=== PATIENT | male | born 1995 | race Caucasian/White ===

== ENCOUNTER → 2021-01-14 12:37 | Outpatient (CLI) | payer OTHER, SELFPAY ==
--- NOTE | 2021-01-14 12:42 | DI.RAD.S_ITS ---
PROCEDURE: XR LUMBAR SPINE 2-3V INDICATIONS: low back pain TECHNIQUE: 3 views of the lumbar spine were acquired. COMPARISON: None. FINDINGS: Bones: 5 [id number] vertebrae are present. There is normal bony alignment. No vertebral body compression fractures. No suspicious bony lesions. Lucency at the L4-L5 level consistent with pars interarticularis defects. Moderate L5-S1 disc height loss. Soft tissues: Overlying bowel gas pattern is normal. No suspicious soft tissue calcifications. 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 If indicated, oblique views could be performed for further assessment. Moderate L5-S1 disc degeneration. Dictated by: Michael Mitchell [facility] Interpreted: Kalpesh Adam MD on 01/14/2021 at 13:38 Transcribed by: ANDRES on 01/14/2021 at 13:50 Approved by: Kalpesh Adam M.D. on 01/14/2021 at 13:56
== END ==
PROVIDERS: PCP Family Medicine; Referring Provider Family Medicine; Visit Provider Family Medicine
DX: M51.36 Other intervertebral disc degeneration, lumbar region (principal); M51.37 Other intervertebral disc degeneration, lumbosacral region; M54.50 Low back pain, unspecified
CPT/HCPCS: 72100

== ENCOUNTER → 2021-04-02 14:53 | Outpatient (CLI) | payer OTHER, SELFPAY ==
--- NOTE | 2021-04-02 14:54 | DI.MRI.S_ITS ---
PROCEDURE: MR LUMBAR SPINE WO CON INDICATIONS: hemangioma and chronic low back pain not improved TECHNIQUE: Noncontrast sagittal T1 spin echo and T2 fast echo, sagittal STIR, axial T1 and T2 fast spin echo through the lumbar spine. In cases with scoliosis, additional coronal T2 fast spin echo may be performed. COMPARISON: None. FINDINGS: Image quality: Excellent. Alignment and Curvature: There is normal bony alignment. Bone Marrow: Marrow is of normal overall signal. No acute vertebral body compression fractures. Spinal Cord: Conus medullaris terminates at the L1 level. Visualized cord demonstrates normal signal and size. Paraspinous Soft Tissues: No paravertebral masses. T12-L1: No significant disc bulge. The foramina and central canal are patent. L1-L2: No significant disc bulge. The foramina and central canal are patent. L2-L3: No significant disc bulge. The foramina and central canal are patent. L3-L4: The disc demonstrates low T2 signal consistent with degeneration. There is a diffuse disc bulge with a small central disc protrusion causing mild bilateral foraminal stenosis and mild central canal stenosis. L4-L5: The disc demonstrates low T2 signal consistent with degeneration. There is a diffuse disc bulge without protrusion or extrusion causing mild bilateral foraminal stenosis. L5-S1: The disc demonstrates low T2 signal consistent with degeneration. There is a diffuse disc bulge with a central and right paracentral protrusion measuring 10 mm in width and protruding posteriorly 6 mm which encroaches upon the lateral recess and impinges upon the exiting right S1 right nerve root and indents the anterior thecal sac causing mild to moderate central canal stenosis. The foramina are patent at this level. IMPRESSION: 1. Degenerative disc disease of L3-4, L4-5, and L5-S1. 2. Small central protrusion at L3-4 causing mild bilateral foraminal stenosis and mild central canal stenosis. 3. Diffuse disc bulge of L4-5 causing mild bilateral foraminal stenosis and no central canal stenosis. 4. Larger right central/paracentral protrusion measuring 10 mm in width and 6 mm AP which causes mild to moderate central canal stenosis and impinges upon the exiting right S1 nerve root. Dictated by: Alonzo Melendez M.D. on 04/02/2021 at 16:15 Approved by: Alonzo Melendez M.D. on 04/02/2021 at 16:25
== END ==
PROVIDERS: Family Provider Family Medicine; PCP Family Medicine; Referring Provider Family Medicine; Visit Provider Family Medicine
DX: M51.37 Other intervertebral disc degeneration, lumbosacral region (principal); M51.27 Other intervertebral disc displacement, lumbosacral region; M51.36 Other intervertebral disc degeneration, lumbar region; M51.26 Other intervertebral disc displacement, lumbar region; M48.061 Spinal stenosis, lumbar region without neurogenic claudication; M48.07 Spinal stenosis, lumbosacral region; M43.06 Spondylolysis, lumbar region; D18.09 Hemangioma of other sites; G89.29 Other chronic pain
CPT/HCPCS: 72148

== ENCOUNTER 2021-04-20 15:15 | Outpatient (RCR) | payer OTHER, SELFPAY ==
--- NOTE | 2021-02-24 16:51 | PT.OIE ---
Current Diagnoses Lesion of sciatic nerve, right lower limb (02/24/21) Spondylosis, unspecified (02/24/21) Sciatica, right side (02/24/21) Lumbago with sciatica, right side (02/24/21) Past Medical History (Last Updated 02/16/21 @ 10:04 by Jakub Paez MD) Anxiety (~2019) Chronic back pain (~2016) Color blind Exertional compartment syndrome (~2016) Foot pain (~2016) Headache History of left knee surgery (~2010) Hx of vasectomy Migraines Pars defect of lumbar spine Shoulder pain (~2016) [place] teeth removed (~2013) Past Surgical History (Last Updated 11/24/20 @ 13:22 by Jakub Paez MD) Anesthesia History of left knee surgery (~2010) Hx of vasectomy [place] teeth removed (~2013) Visit Care Team Role Provider Type Jakub Paez MD Attending Provider Physician Family Provider Primary Care Provider Referring Provider Specialty: Family Practice Address: [address] [place] [address] Email: [email or web address] Physical Therapy Initial Evaluation PT-OP-A Visit Information Start: 02/24/21 15:21 Freq: Status: Active Protocol: Document 02/24/21 14:30 DCW (Rec: 02/24/21 15:41 DCW [id number]) Out-Patient Physical Therapy Visit Information Visit Information Visit Type Initial Evaluation Visit Start Time 14:30 Visit Stop Time 15:15 Total Visit Minutes 45 Visit Number 1 Number of AUTOMATIC SPINNING LATHE SETTER Visits 0 Evaluation Information Evaluation Date 02/24/21 PT-OP-B Current Condition Start: 02/24/21 15:21 Freq: Status: Active Protocol: Document 02/24/21 14:30 DCW (Rec: 02/24/21 15:41 DCW [id number]) Current Condition History of Current Condition Onset Date ~1 year ago Current Complaints Low back pain with right-sided radicular symptoms History of Current Condition Pt is a 25 year old male presenting with a one year history of low back pain. Pt reports there was no initial injury, he was just bending down to put things away under his sink, and got severe pain in his low back. Pt notes he had to sit on the floor for ten minutes, and then eventually crawl down to his garage so his could take him to the ED. Reports his pain went away after 4-5 days, but continued to have a chronic low-level back ache. Then in December, pt once again started experiencing much more severe back pain with right-sided radicular symptoms, notes he was not able to stand or sit, only getting relief lying down, and once again this pain lasted about five days. Pt concerned both of his low-level back ache that doesn't go away, as well as this occasional sudden worsening of pain. Pt notes he did have an MRI at another hospital last year which showed multiple bulging discs and an annular tear. 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 Patient Questionnaires Oswestry Low Back Index Oswestry Score 8/50 = 16% Oswestry Impairment 1 to 19% Impaired (Score 1-19) OP-PT Pain Assessment Pain Assessment Grid Paper Pain Assessment Grid Completed Yes Location Right Lower Back Intensity 4 Scale Used Numeric (0 - 10) Description Sharp,Shooting Radiating Location Right posterior thigh Pain Aggravating Factors Standing,Sitting,Walking, Bending,Lifting PT-OP-F Manual Assessment Start: 02/24/21 15:21 Freq: Status: Active Protocol: Document 02/24/21 14:30 DCW (Rec: 02/24/21 15:48 DCW [id number]) Manual Assessments Soft Tissue Assessment Soft Tissue Mobility Assessment Severe tone R piriformis, Moderate tone R QL, R paraspinals PT-OP-K Range of Motion Start: 02/24/21 15:21 Freq: Status: Active Protocol: Document 02/24/21 14:30 DCW (Rec: 02/24/21 15:48 DCW [id number]) Lumbar Spine Range of Motion Lumbar Spine Active Degrees Testing Position Standing Flexion 70 Extension 25 Lateral Flexion Left 52 Lateral Flexion Right 50 Comments Lateral flexion measured in cm from floor to finger-tips PT-OP-L Special Tests Start: 02/24/21 15:21 Freq: Status: Active Protocol: Document 02/24/21 14:30 DCW (Rec: 02/24/21 15:48 DCW [id number]) Special Tests Lumbar Spine Special Tests DIEGO Test Results Negative Standing Flexion Test Results General pain Straight Leg Raise Test Results Positive R Slump Test Results Stretch of right nerve Manual Traction Test Results R stretching Compression Test Results Negative A-P Shearing Test Results Negative PT-OP-M Strength Start: 02/24/21 15:21 Freq: Status: Active Protocol: Document 02/24/21 14:30 DCW (Rec: 02/24/21 15:48 DCW [id number]) Hip Strength Hip Manual Muscle Testing Right Flexion (L2) 5 Normal Abduction 5 Normal Adduction 5 Normal External Rotation 5 Normal Internal Rotation 5 Normal Left Flexion (L2) 5 Normal Abduction 5 Normal Adduction 5 Normal External Rotation 5 Normal Internal Rotation 5 Normal PT-OP-Q Treatments Start: 02/24/21 15:21 Freq: Status: Active Protocol: Document 02/24/21 14:30 DCW (Rec: 02/24/21 15:42 DCW [id number]) Therapeutic Exercises Supine Exercises 1 Supine Exercise Name Piriformis stretch - knee to opposite shoulder Side right Sitting Exercises 1 Sitting Exercise Name Piriformis stretch - seated figure-4 Side right PT-OP-T Assessment and Plan Start: 02/24/21 15:21 Freq: Status: Active Protocol: Document 02/24/21 14:30 DCW (Rec: 02/24/21 16:51 DCW [id number]) Physical Therapy Assessment Rehab Potential Rehabilitation Potential Good Evaluation Complexity Number of Personal Factors/Comorbidities 1-2 Number of Body Systems Impaired 1-2 Clinical Presentation at Evaluation Evolving Impairments Impairments Functional Activities, Functional Mobility,Pain,Soft Tissue Mobility,Tone Goals Three Impairment Pt experiences right neural tension in leg with SLR/ankle flexion Lithographic Etcher Goal (LTG) Pt to tolerate R SLR with ankle pumps without increase shooting pain to show release of sciatic neural tension LTG Duration 04/24/21 Two Impairment Severe tone along right piriformis Lithographic Etcher Goal (LTG) Pt to exhibit right piriformis tone to mild-moderate to improve right hip flexibility. LTG Duration 04/24/21 One Impairment Pt does not have an appropriate home exercise program Short Term Goal (STG) Pt to be independent and complaint with an appropriate HEP STG Duration 03/27/21 Assessment Summary Assessment Pt presents with signs and symptoms consistent with likely lumbar disc bulges and right-sided muscle tension resulting in radicular pain along posterior hip and thigh. Pt's severe pain comes and goes, which may be spasm of the piriformis, and then has continued chronic low-level ache, which may be caused by the disc bulges. Pt should benefit from skilled therapy focusing on STM, stretching/ flexibility to decrease pressure of QL and Piriformis and decrease tension on right sciatic nerve. May also benefit from lumbar traction and positioning training to potentially reduce disc bulges . Physical Therapy Plan Frequency and Duration Frequency of Treatment 2x/Week Duration of Treatment Two months Plan of Care Start Date 02/24/21 Plan of Care End Date 04/24/21 Therapeutic Interventions Therapeutic Interventions Aquatic Therapy,Home Exercise Program,Joint Mobilizations, Manual Therapy,Neuromuscular Re-education,Patient/Caregiver Education,Self-Care/Home Management,Soft Tissue Mobilization,Therapeutic Activities,Therapeutic Exercises Modalities Cold Pack/Ice Massage,Electric Stimulation,Hot Packs, Traction- Mechanical, Ultrasound Next Visit Focus/Plan Next Note Type Treatment Note Next Visit Plan STM, stretching, traction
--- NOTE | 2021-02-24 16:52 | PT.OPPOC ---
Physical, Occupational & Speech Therapy At [facility] Current Diagnoses Lesion of sciatic nerve, right lower limb (02/24/21) Spondylosis, unspecified (02/24/21) Sciatica, right side (02/24/21) Lumbago with sciatica, right side (02/24/21) Visit Care Team Role Provider Type Jakub Paez MD Attending Provider Physician Family Provider Primary Care Provider Referring Provider Specialty: Family Practice Address: [address] [place] [address], [facility] Email: [email or web address] Plan Of Care PT-OP-T Assessment and Plan Start: 02/24/21 15:21 Freq: Status: Active Protocol: Document 02/24/21 14:30 DCW (Rec: 02/24/21 16:51 DCW [id number]) Physical Therapy Assessment Rehab Potential Rehabilitation Potential Good Evaluation Complexity Number of Personal Factors/Comorbidities 1-2 Number of Body Systems Impaired 1-2 Clinical Presentation at Evaluation Evolving Impairments Impairments Functional Activities, Functional Mobility,Pain,Soft Tissue Mobility,Tone Goals Three Impairment Pt experiences right neural tension in leg with SLR/ankle flexion Ager Operator Goal (LTG) Pt to tolerate R SLR with ankle pumps without increase shooting pain to show release of sciatic neural tension LTG Duration 04/24/21 Two Impairment Severe tone along right piriformis Long-Term Goal (LTG) Pt to exhibit right piriformis tone to mild-moderate to improve right hip flexibility. LTG Duration 04/24/21 One Impairment Pt does not have an appropriate home exercise program Short Term Goal (STG) Pt to be independent and complaint with an appropriate HEP STG Duration 03/27/21 Assessment Summary Assessment Pt presents with signs and symptoms consistent with likely lumbar disc bulges and right-sided muscle tension resulting in radicular pain along posterior hip and thigh. Pt's severe pain comes and goes, which may be spasm of the piriformis, and then has continued chronic low-level ache, which may be caused by the disc bulges. Pt should benefit from skilled therapy focusing on STM, stretching/ flexibility to decrease pressure of QL and Piriformis and decrease tension on right sciatic nerve. May also benefit from lumbar traction and positioning training to potentially reduce disc bulges . Physical Therapy Plan Frequency and Duration Frequency of Treatment 2x/Week Duration of Treatment Two months Plan of Care Start Date 02/24/21 Plan of Care End Date 04/24/21 Therapeutic Interventions Therapeutic Interventions Aquatic Therapy,Home Exercise Program,Joint Mobilizations, Manual Therapy,Neuromuscular Re-education,Patient/Caregiver Education,Self-Care/Home Management,Soft Tissue Mobilization,Therapeutic Activities,Therapeutic Exercises Modalities Cold Pack/Ice Massage,Electric Stimulation,Hot Packs, Traction- Mechanical, Ultrasound Next Visit Focus/Plan Next Note Type Treatment Note Next Visit Plan STM, stretching, traction Plan of Care Dates Plan of Care Start Date 02/24/21 Plan of Care End Date 04/24/21 Electronically Signed by: En Austin, PT 02/24/21 0399 Please Sign and Return: I have reviewed this Plan of Care and certify that the skilled therapy services above are required to meet the patient?s needs. Physician Signature Date Printed Name and Credentials Clinical Instructor Signature Printed Name and Credentials
--- NOTE | 2021-02-26 11:56 | PT.OTN ---
Current Diagnoses Lesion of sciatic nerve, right lower limb (02/26/21) Spondylosis, unspecified (02/26/21) Sciatica, right side (02/26/21) Lumbago with sciatica, right side (02/26/21) Physical Therapy Treatment Note PT-OP-A Visit Information Start: 02/24/21 15:21 Freq: Status: Active Protocol: Document 02/26/21 11:15 DCW (Rec: 02/26/21 11:55 DCW [id number]) Out-Patient Physical Therapy Visit Information Visit Information Visit Type Treatment Note Visit Start Time 11:15 Visit Stop Time 12:00 Total Visit Minutes 45 Visit Number 2 Number of SALES LEDGER CLERK Visits 0 Evaluation Information Evaluation Date 02/24/21 PT-OP-B Current Condition Start: 02/24/21 15:21 Freq: Status: Active Protocol: Document 02/24/21 14:30 DCW (Rec: 02/24/21 15:41 DCW [id number]) Current Condition History of Current Condition Onset Date ~1 year ago Current Complaints Low back pain with right-sided radicular symptoms History of Current Condition Pt is a 25 year old male presenting with a one year history of low back pain. Pt reports there was no initial injury, he was just bending down to put things away under his sink, and got severe pain in his low back. Pt notes he had to sit on the floor for ten minutes, and then eventually crawl down to his garage so his could take him to the ED. Reports his pain went away after 4-5 days, but continued to have a chronic low-level back ache. Then in December, pt once again started experiencing much more severe back pain with right-sided radicular symptoms, notes he was not able to stand or sit, only getting relief lying down, and once again this pain lasted about five days. Pt concerned both of his low-level back ache that doesn't go away, as well as this occasional sudden worsening of pain. Pt notes he did have an MRI at another hospital last year which showed multiple bulging discs and an annular tear. PT-OP-C Subjective Start: 02/24/21 15:21 Freq: Status: Active Protocol: Document 02/26/21 11:15 DCW (Rec: 02/26/21 11:55 DCW [id number]) OP-PT Subjective Patient Comments Patient Comments No difference yet, has been doing stretches regularly. PT-OP-F Manual Assessment Start: 02/24/21 15:21 Freq: Status: Active Protocol: Document 02/24/21 14:30 DCW (Rec: 02/24/21 15:48 DCW [id number]) Manual Assessments Soft Tissue Assessment Soft Tissue Mobility Assessment Severe tone R piriformis, Moderate tone R QL, R paraspinals PT-OP-K Range of Motion Start: 02/24/21 15:21 Freq: Status: Active Protocol: Document 02/24/21 14:30 DCW (Rec: 02/24/21 15:48 DCW [id number]) Lumbar Spine Range of Motion Lumbar Spine Active Degrees Testing Position Standing Flexion 70 Extension 25 Lateral Flexion Left 52 Lateral Flexion Right 50 Comments Lateral flexion measured in cm from floor to finger-tips PT-OP-L Special Tests Start: 02/24/21 15:21 Freq: Status: Active Protocol: Document 02/24/21 14:30 DCW (Rec: 02/24/21 15:48 DCW [id number]) Special Tests Lumbar Spine Special Tests DIEGO Test Results Negative Standing Flexion Test Results General pain Straight Leg Raise Test Results Positive R Slump Test Results Stretch of right nerve Manual Traction Test Results R stretching Compression Test Results Negative A-P Shearing Test Results Negative PT-OP-M Strength Start: 02/24/21 15:21 Freq: Status: Active Protocol: Document 02/24/21 14:30 DCW (Rec: 02/24/21 15:48 DCW [id number]) Hip Strength Hip Manual Muscle Testing Right Flexion (L2) 5 Normal Abduction 5 Normal Adduction 5 Normal External Rotation 5 Normal Internal Rotation 5 Normal Left Flexion (L2) 5 Normal Abduction 5 Normal Adduction 5 Normal External Rotation 5 Normal Internal Rotation 5 Normal PT-OP-Q Treatments Start: 02/24/21 15:21 Freq: Status: Active Protocol: Document 02/26/21 11:15 DCW (Rec: 02/26/21 11:55 DCW [id number]) Gym Equipment Therapeutic Ball LTR Exercise Details Low trunk rotations Ball Size/Color Red - 55 cm Body Position Supine Therapeutic Exercises Supine Exercises 4 Supine Exercise Name PPT /c SLR 3 Supine Exercise Name PPT /c Marching 2 Supine Exercise Name PPT /c TrA contraction 1 Supine Exercise Name Piriformis stretch - knee to opposite shoulder Side right PT-OP-R Modalities Start: 02/24/21 15:21 Freq: Status: Active Protocol: Document 02/26/21 11:15 DCW (Rec: 02/26/21 11:56 DCW [id number]) Spinal Traction Traction Treatment Lumbar Method Mechanical,Static Patient Position Hooklying Force Applied (Pounds) 60 Duration of Treatment (Minutes) 10 PT-OP-T Assessment and Plan Start: 02/24/21 15:21 Freq: Status: Active Protocol: Document 02/26/21 11:15 DCW (Rec: 02/26/21 11:55 DCW [id number]) Physical Therapy Assessment Impairments Impairments Functional Activities, Functional Mobility,Pain,Soft Tissue Mobility,Tone Goals Three Impairment Pt experiences right neural tension in leg with SLR/ankle flexion Passenger Booking Clerk Goal (LTG) Pt to tolerate R SLR with ankle pumps without increase shooting pain to show release of sciatic neural tension LTG Duration 04/24/21 Two Impairment Severe tone along right piriformis Penitentiary Goal (LTG) Pt to exhibit right piriformis tone to mild-moderate to improve right hip flexibility. LTG Duration 04/24/21 One Impairment Pt does not have an appropriate home exercise program Short Term Goal (STG) Pt to be independent and complaint with an appropriate HEP STG Duration 03/27/21 Assessment Summary Assessment Pt tolerated treatment well today, still high tone along R piriformis. Trial of lumbar traction, pt felt alright during treatment, instructed to track how he felt rest of the day and report next week. Physical Therapy Plan Frequency and Duration Frequency of Treatment 2x/Week Duration of Treatment Two months Plan of Care Start Date 02/24/21 Plan of Care End Date 04/24/21 Therapeutic Interventions Therapeutic Interventions Aquatic Therapy,Home Exercise Program,Joint Mobilizations, Manual Therapy,Neuromuscular Re-education,Patient/Caregiver Education,Self-Care/Home Management,Soft Tissue Mobilization,Therapeutic Activities,Therapeutic Exercises Modalities Cold Pack/Ice Massage,Electric Stimulation,Hot Packs, Traction- Mechanical, Ultrasound Next Visit Focus/Plan Next Note Type Treatment Note Next Visit Plan STM, stretching, traction
--- NOTE | 2021-03-03 10:28 | PT.OTN ---
Current Diagnoses Lesion of sciatic nerve, right lower limb (03/03/21) Spondylosis, unspecified (03/03/21) Sciatica, right side (03/03/21) Lumbago with sciatica, right side (03/03/21) Physical Therapy Treatment Note PT-OP-A Visit Information Start: 02/24/21 15:21 Freq: Status: Active Protocol: Document 03/03/21 09:45 DCW (Rec: 03/03/21 10:28 DCW [id number]) Out-Patient Physical Therapy Visit Information Visit Information Visit Type Treatment Note Visit Start Time 09:45 Visit Stop Time 10:30 Total Visit Minutes 45 Visit Number 3 Number of TEACHER OF THE EMOTIONALLY DISTURBED Visits 0 Evaluation Information Evaluation Date 02/24/21 PT-OP-B Current Condition Start: 02/24/21 15:21 Freq: Status: Active Protocol: Document 02/24/21 14:30 DCW (Rec: 02/24/21 15:41 DCW [id number]) Current Condition History of Current Condition Onset Date ~1 year ago Current Complaints Low back pain with right-sided radicular symptoms History of Current Condition Pt is a 25 year old male presenting with a one year history of low back pain. Pt reports there was no initial injury, he was just bending down to put things away under his sink, and got severe pain in his low back. Pt notes he had to sit on the floor for ten minutes, and then eventually crawl down to his garage so his could take him to the ED. Reports his pain went away after 4-5 days, but continued to have a chronic low-level back ache. Then in December, pt once again started experiencing much more severe back pain with right-sided radicular symptoms, notes he was not able to stand or sit, only getting relief lying down, and once again this pain lasted about five days. Pt concerned both of his low-level back ache that doesn't go away, as well as this occasional sudden worsening of pain. Pt notes he did have an MRI at another hospital last year which showed multiple bulging discs and an annular tear. PT-OP-C Subjective Start: 02/24/21 15:21 Freq: Status: Active Protocol: Document 03/03/21 09:45 DCW (Rec: 03/03/21 10:28 DCW [id number]) OP-PT Subjective Patient Comments Patient Comments Pt not too bad today. Feels that the lumbar traction helped quite a bit. PT-OP-F Manual Assessment Start: 02/24/21 15:21 Freq: Status: Active Protocol: Document 02/24/21 14:30 DCW (Rec: 02/24/21 15:48 DCW [id number]) Manual Assessments Soft Tissue Assessment Soft Tissue Mobility Assessment Severe tone R piriformis, Moderate tone R QL, R paraspinals PT-OP-K Range of Motion Start: 02/24/21 15:21 Freq: Status: Active Protocol: Document 02/24/21 14:30 DCW (Rec: 02/24/21 15:48 DCW [id number]) Lumbar Spine Range of Motion Lumbar Spine Active Degrees Testing Position Standing Flexion 70 Extension 25 Lateral Flexion Left 52 Lateral Flexion Right 50 Comments Lateral flexion measured in cm from floor to finger-tips PT-OP-L Special Tests Start: 02/24/21 15:21 Freq: Status: Active Protocol: Document 02/24/21 14:30 DCW (Rec: 02/24/21 15:48 DCW [id number]) Special Tests Lumbar Spine Special Tests DIEGO Test Results Negative Standing Flexion Test Results General pain Straight Leg Raise Test Results Positive R Slump Test Results Stretch of right nerve Manual Traction Test Results R stretching Compression Test Results Negative A-P Shearing Test Results Negative PT-OP-M Strength Start: 02/24/21 15:21 Freq: Status: Active Protocol: Document 02/24/21 14:30 DCW (Rec: 02/24/21 15:48 DCW [id number]) Hip Strength Hip Manual Muscle Testing Right Flexion (L2) 5 Normal Abduction 5 Normal Adduction 5 Normal External Rotation 5 Normal Internal Rotation 5 Normal Left Flexion (L2) 5 Normal Abduction 5 Normal Adduction 5 Normal External Rotation 5 Normal Internal Rotation 5 Normal PT-OP-Q Treatments Start: 02/24/21 15:21 Freq: Status: Active Protocol: Document 03/03/21 09:45 DCW (Rec: 03/03/21 10:28 DCW [id number]) Gym Equipment Therapeutic Ball Bridging Exercise Details Bridging /c feet on ball Ball Size/Color Red - 55 cm Body Position Supine LTR Exercise Details Low trunk rotations Ball Size/Color Red - 55 cm Body Position Supine Therapeutic Exercises Supine Exercises 1 Supine Exercise Name Piriformis stretch - knee to opposite shoulder Side right Manual Therapy Treatment Soft Tissue Mobilization 1 Body Location R Piriformis Mobilization Type Strumming,Sustained Pressure Intensity/Depth Moderate PT-OP-R Modalities Start: 02/24/21 15:21 Freq: Status: Active Protocol: Document 03/03/21 09:45 DCW (Rec: 03/03/21 10:28 DCW [id number]) Spinal Traction Traction Treatment Lumbar Method Mechanical,Static Patient Position Hooklying Force Applied (Pounds) 60 Duration of Treatment (Minutes) 10 Traction Treatment Comment Reported pain drops from 3/10 to 0/10 during traction PT-OP-T Assessment and Plan Start: 02/24/21 15:21 Freq: Status: Active Protocol: Document 03/03/21 09:45 DCW (Rec: 03/03/21 10:28 DCW [id number]) Physical Therapy Assessment Impairments Impairments Functional Activities, Functional Mobility,Pain,Soft Tissue Mobility,Tone Goals Three Impairment Pt experiences right neural tension in leg with SLR/ankle flexion Loom Changer Goal (LTG) Pt to tolerate R SLR with ankle pumps without increase shooting pain to show release of sciatic neural tension LTG Duration 04/24/21 Two Impairment Severe tone along right piriformis Retirement Goal (LTG) Pt to exhibit right piriformis tone to mild-moderate to improve right hip flexibility. LTG Duration 04/24/21 One Impairment Pt does not have an appropriate home exercise program Short Term Goal (STG) Pt to be independent and complaint with an appropriate HEP STG Duration 03/27/21 Assessment Summary Assessment Pt showing fairly good progress already, noticeable decrease in low back/hip tone. Physical Therapy Plan Frequency and Duration Frequency of Treatment 2x/Week Duration of Treatment Two months Plan of Care Start Date 02/24/21 Plan of Care End Date 04/24/21 Therapeutic Interventions Therapeutic Interventions Aquatic Therapy,Home Exercise Program,Joint Mobilizations, Manual Therapy,Neuromuscular Re-education,Patient/Caregiver Education,Self-Care/Home Management,Soft Tissue Mobilization,Therapeutic Activities,Therapeutic Exercises Modalities Cold Pack/Ice Massage,Electric Stimulation,Hot Packs, Traction- Mechanical, Ultrasound Next Visit Focus/Plan Next Note Type Treatment Note Next Visit Plan STM, stretching, traction
--- NOTE | 2021-03-05 11:56 | PT.OTN ---
Current Diagnoses Lesion of sciatic nerve, right lower limb (03/05/21) Spondylosis, unspecified (03/05/21) Sciatica, right side (03/05/21) Lumbago with sciatica, right side (03/05/21) Physical Therapy Treatment Note PT-OP-A Visit Information Start: 02/24/21 15:21 Freq: Status: Active Protocol: Document 03/05/21 11:15 DCW (Rec: 03/05/21 11:56 DCW [id number]) Out-Patient Physical Therapy Visit Information Visit Information Visit Type Treatment Note Visit Start Time 11:15 Visit Stop Time 12:00 Total Visit Minutes 45 Visit Number 4 Number of COMMUNITY THEATER ACTOR Visits 0 Evaluation Information Evaluation Date 02/24/21 PT-OP-B Current Condition Start: 02/24/21 15:21 Freq: Status: Active Protocol: Document 02/24/21 14:30 DCW (Rec: 02/24/21 15:41 DCW [id number]) Current Condition History of Current Condition Onset Date ~1 year ago Current Complaints Low back pain with right-sided radicular symptoms History of Current Condition Pt is a 25 year old male presenting with a one year history of low back pain. Pt reports there was no initial injury, he was just bending down to put things away under his sink, and got severe pain in his low back. Pt notes he had to sit on the floor for ten minutes, and then eventually crawl down to his garage so his could take him to the ED. Reports his pain went away after 4-5 days, but continued to have a chronic low-level back ache. Then in December, pt once again started experiencing much more severe back pain with right-sided radicular symptoms, notes he was not able to stand or sit, only getting relief lying down, and once again this pain lasted about five days. Pt concerned both of his low-level back ache that doesn't go away, as well as this occasional sudden worsening of pain. Pt notes he did have an MRI at another hospital last year which showed multiple bulging discs and an annular tear. PT-OP-C Subjective Start: 02/24/21 15:21 Freq: Status: Active Protocol: Document 03/05/21 11:15 DCW (Rec: 03/05/21 11:56 DCW [id number]) OP-PT Subjective Patient Comments Patient Comments Pt notes once again the lumbar traction helped, felt good the rest of the day after last visit. PT-OP-F Manual Assessment Start: 02/24/21 15:21 Freq: Status: Active Protocol: Document 02/24/21 14:30 DCW (Rec: 02/24/21 15:48 DCW [id number]) Manual Assessments Soft Tissue Assessment Soft Tissue Mobility Assessment Severe tone R piriformis, Moderate tone R QL, R paraspinals PT-OP-K Range of Motion Start: 02/24/21 15:21 Freq: Status: Active Protocol: Document 02/24/21 14:30 DCW (Rec: 02/24/21 15:48 DCW [id number]) Lumbar Spine Range of Motion Lumbar Spine Active Degrees Testing Position Standing Flexion 70 Extension 25 Lateral Flexion Left 52 Lateral Flexion Right 50 Comments Lateral flexion measured in cm from floor to finger-tips PT-OP-L Special Tests Start: 02/24/21 15:21 Freq: Status: Active Protocol: Document 02/24/21 14:30 DCW (Rec: 02/24/21 15:48 DCW [id number]) Special Tests Lumbar Spine Special Tests DIEGO Test Results Negative Standing Flexion Test Results General pain Straight Leg Raise Test Results Positive R Slump Test Results Stretch of right nerve Manual Traction Test Results R stretching Compression Test Results Negative A-P Shearing Test Results Negative PT-OP-M Strength Start: 02/24/21 15:21 Freq: Status: Active Protocol: Document 02/24/21 14:30 DCW (Rec: 02/24/21 15:48 DCW [id number]) Hip Strength Hip Manual Muscle Testing Right Flexion (L2) 5 Normal Abduction 5 Normal Adduction 5 Normal External Rotation 5 Normal Internal Rotation 5 Normal Left Flexion (L2) 5 Normal Abduction 5 Normal Adduction 5 Normal External Rotation 5 Normal Internal Rotation 5 Normal PT-OP-Q Treatments Start: 02/24/21 15:21 Freq: Status: Active Protocol: Document 03/05/21 11:15 DCW (Rec: 03/05/21 11:56 DCW [id number]) Gym Equipment Therapeutic Ball Bridging Exercise Details Bridging /c feet on ball Ball Size/Color Red - 55 cm Body Position Supine LTR Exercise Details Low trunk rotations Ball Size/Color Red - 55 cm Body Position Supine Therapeutic Exercises Supine Exercises 1 Supine Exercise Name Piriformis stretch - knee to opposite shoulder Side right Manual Therapy Treatment Soft Tissue Mobilization 2 Body Location R Psoas Mobilization Type Sustained Pressure Intensity/Depth Deep 1 Body Location R Piriformis Mobilization Type Strumming,Sustained Pressure Intensity/Depth Moderate PT-OP-R Modalities Start: 02/24/21 15:21 Freq: Status: Active Protocol: Document 03/05/21 11:15 DCW (Rec: 03/05/21 11:56 DCW [id number]) Spinal Traction Traction Treatment Lumbar Method Mechanical,Static Patient Position Hooklying Force Applied (Pounds) 60 Duration of Treatment (Minutes) 10 PT-OP-T Assessment and Plan Start: 02/24/21 15:21 Freq: Status: Active Protocol: Document 03/05/21 11:15 DCW (Rec: 03/05/21 11:56 DCW [id number]) Physical Therapy Assessment Impairments Impairments Functional Activities, Functional Mobility,Pain,Soft Tissue Mobility,Tone Goals Three Impairment Pt experiences right neural tension in leg with SLR/ankle flexion Quality Engineer Medical Device Goal (LTG) Pt to tolerate R SLR with ankle pumps without increase shooting pain to show release of sciatic neural tension LTG Duration 04/24/21 Two Impairment Severe tone along right piriformis Nursing Home Goal (LTG) Pt to exhibit right piriformis tone to mild-moderate to improve right hip flexibility. LTG Duration 04/24/21 One Impairment Pt does not have an appropriate home exercise program Short Term Goal (STG) Pt to be independent and complaint with an appropriate HEP STG Duration 03/27/21 Assessment Summary Assessment Pt continuing to show benefit from skilled intervention, including STM and lumbar traction Physical Therapy Plan Frequency and Duration Frequency of Treatment 2x/Week Duration of Treatment Two months Plan of Care Start Date 02/24/21 Plan of Care End Date 04/24/21 Therapeutic Interventions Therapeutic Interventions Aquatic Therapy,Home Exercise Program,Joint Mobilizations, Manual Therapy,Neuromuscular Re-education,Patient/Caregiver Education,Self-Care/Home Management,Soft Tissue Mobilization,Therapeutic Activities,Therapeutic Exercises Modalities Cold Pack/Ice Massage,Electric Stimulation,Hot Packs, Traction- Mechanical, Ultrasound Next Visit Focus/Plan Next Note Type Treatment Note Next Visit Plan STM, stretching, traction
--- NOTE | 2021-03-10 14:25 | PT.OTN ---
Current Diagnoses Lesion of sciatic nerve, right lower limb (03/10/21) Spondylosis, unspecified (03/10/21) Sciatica, right side (03/10/21) Lumbago with sciatica, right side (03/10/21) Physical Therapy Treatment Note PT-OP-A Visit Information Start: 02/24/21 15:21 Freq: Status: Active Protocol: Document 03/10/21 13:45 DCW (Rec: 03/10/21 14:21 DCW [id number]) Out-Patient Physical Therapy Visit Information Visit Information Visit Type Treatment Note Visit Start Time 13:45 Visit Stop Time 14:30 Total Visit Minutes 45 Visit Number 5 Number of ZANJERO Visits 0 Evaluation Information Evaluation Date 02/24/21 PT-OP-B Current Condition Start: 02/24/21 15:21 Freq: Status: Active Protocol: Document 02/24/21 14:30 DCW (Rec: 02/24/21 15:41 DCW [id number]) Current Condition History of Current Condition Onset Date ~1 year ago Current Complaints Low back pain with right-sided radicular symptoms History of Current Condition Pt is a 25 year old male presenting with a one year history of low back pain. Pt reports there was no initial injury, he was just bending down to put things away under his sink, and got severe pain in his low back. Pt notes he had to sit on the floor for ten minutes, and then eventually crawl down to his garage so his could take him to the ED. Reports his pain went away after 4-5 days, but continued to have a chronic low-level back ache. Then in December, pt once again started experiencing much more severe back pain with right-sided radicular symptoms, notes he was not able to stand or sit, only getting relief lying down, and once again this pain lasted about five days. Pt concerned both of his low-level back ache that doesn't go away, as well as this occasional sudden worsening of pain. Pt notes he did have an MRI at another hospital last year which showed multiple bulging discs and an annular tear. PT-OP-C Subjective Start: 02/24/21 15:21 Freq: Status: Active Protocol: Document 03/10/21 13:45 DCW (Rec: 03/10/21 14:21 DCW [id number]) OP-PT Subjective Patient Comments Patient Comments Pt reports his back isn't too bad today. PT-OP-F Manual Assessment Start: 02/24/21 15:21 Freq: Status: Active Protocol: Document 02/24/21 14:30 DCW (Rec: 02/24/21 15:48 DCW [id number]) Manual Assessments Soft Tissue Assessment Soft Tissue Mobility Assessment Severe tone R piriformis, Moderate tone R QL, R paraspinals PT-OP-K Range of Motion Start: 02/24/21 15:21 Freq: Status: Active Protocol: Document 02/24/21 14:30 DCW (Rec: 02/24/21 15:48 DCW [id number]) Lumbar Spine Range of Motion Lumbar Spine Active Degrees Testing Position Standing Flexion 70 Extension 25 Lateral Flexion Left 52 Lateral Flexion Right 50 Comments Lateral flexion measured in cm from floor to finger-tips PT-OP-L Special Tests Start: 02/24/21 15:21 Freq: Status: Active Protocol: Document 02/24/21 14:30 DCW (Rec: 02/24/21 15:48 DCW [id number]) Special Tests Lumbar Spine Special Tests DIEGO Test Results Negative Standing Flexion Test Results General pain Straight Leg Raise Test Results Positive R Slump Test Results Stretch of right nerve Manual Traction Test Results R stretching Compression Test Results Negative A-P Shearing Test Results Negative PT-OP-M Strength Start: 02/24/21 15:21 Freq: Status: Active Protocol: Document 02/24/21 14:30 DCW (Rec: 02/24/21 15:48 DCW [id number]) Hip Strength Hip Manual Muscle Testing Right Flexion (L2) 5 Normal Abduction 5 Normal Adduction 5 Normal External Rotation 5 Normal Internal Rotation 5 Normal Left Flexion (L2) 5 Normal Abduction 5 Normal Adduction 5 Normal External Rotation 5 Normal Internal Rotation 5 Normal PT-OP-Q Treatments Start: 02/24/21 15:21 Freq: Status: Active Protocol: Document 03/10/21 13:45 DCW (Rec: 03/10/21 14:21 DCW [id number]) Therapeutic Exercises Supine Exercises 2 Supine Exercise Name Hamstring stretch Side right 1 Supine Exercise Name Piriformis stretch - knee to opposite shoulder Side right Manual Therapy Treatment Soft Tissue Mobilization 2 Body Location R Psoas Mobilization Type Sustained Pressure Intensity/Depth Deep Body Position Supine 1 Body Location R Piriformis Mobilization Type Strumming,Sustained Pressure Intensity/Depth Moderate Body Position Sidelying PT-OP-R Modalities Start: 02/24/21 15:21 Freq: Status: Active Protocol: Document 03/10/21 13:45 DCW (Rec: 03/10/21 14:21 DCW [id number]) Spinal Traction Traction Treatment Lumbar Method Mechanical,Static Patient Position Hooklying Force Applied (Pounds) 60 Duration of Treatment (Minutes) 10 PT-OP-T Assessment and Plan Start: 02/24/21 15:21 Freq: Status: Active Protocol: Document 03/10/21 13:45 DCW (Rec: 03/10/21 14:21 DCW [id number]) Physical Therapy Assessment Impairments Impairments Functional Activities, Functional Mobility,Pain,Soft Tissue Mobility,Tone Goals Three Impairment Pt experiences right neural tension in leg with SLR/ankle flexion Straightedge Man Goal (LTG) Pt to tolerate R SLR with ankle pumps without increase shooting pain to show release of sciatic neural tension LTG Duration 04/24/21 Two Impairment Severe tone along right piriformis Straightedge Man Goal (LTG) Pt to exhibit right piriformis tone to mild-moderate to improve right hip flexibility. LTG Duration 04/24/21 One Impairment Pt does not have an appropriate home exercise program Short Term Goal (STG) Pt to be independent and complaint with an appropriate HEP STG Duration 03/27/21 Assessment Summary Assessment Pt showing improved pain level and mobility, will discuss with his PCP possibility of referral for home traction unit. Physical Therapy Plan Frequency and Duration Frequency of Treatment 2x/Week Duration of Treatment Two months Plan of Care Start Date 02/24/21 Plan of Care End Date 04/24/21 Therapeutic Interventions Therapeutic Interventions Aquatic Therapy,Home Exercise Program,Joint Mobilizations, Manual Therapy,Neuromuscular Re-education,Patient/Caregiver Education,Self-Care/Home Management,Soft Tissue Mobilization,Therapeutic Activities,Therapeutic Exercises Modalities Cold Pack/Ice Massage,Electric Stimulation,Hot Packs, Traction- Mechanical, Ultrasound Next Visit Focus/Plan Next Note Type Treatment Note Next Visit Plan STM, stretching, traction
--- NOTE | 2021-03-12 12:00 | PT.OTN ---
Current Diagnoses Lesion of sciatic nerve, right lower limb (03/12/21) Spondylosis, unspecified (03/12/21) Sciatica, right side (03/12/21) Lumbago with sciatica, right side (03/12/21) Physical Therapy Treatment Note PT-OP-A Visit Information Start: 02/24/21 15:21 Freq: Status: Active Protocol: Document 03/12/21 11:15 DCW (Rec: 03/12/21 12:00 DCW [id number]) Out-Patient Physical Therapy Visit Information Visit Information Visit Type Treatment Note Visit Start Time 11:15 Visit Stop Time 12:00 Total Visit Minutes 45 Visit Number 6 Number of UPS DRIVER Visits 0 Evaluation Information Evaluation Date 02/24/21 PT-OP-B Current Condition Start: 02/24/21 15:21 Freq: Status: Active Protocol: Document 02/24/21 14:30 DCW (Rec: 02/24/21 15:41 DCW [id number]) Current Condition History of Current Condition Onset Date ~1 year ago Current Complaints Low back pain with right-sided radicular symptoms History of Current Condition Pt is a 25 year old male presenting with a one year history of low back pain. Pt reports there was no initial injury, he was just bending down to put things away under his sink, and got severe pain in his low back. Pt notes he had to sit on the floor for ten minutes, and then eventually crawl down to his garage so his could take him to the ED. Reports his pain went away after 4-5 days, but continued to have a chronic low-level back ache. Then in December, pt once again started experiencing much more severe back pain with right-sided radicular symptoms, notes he was not able to stand or sit, only getting relief lying down, and once again this pain lasted about five days. Pt concerned both of his low-level back ache that doesn't go away, as well as this occasional sudden worsening of pain. Pt notes he did have an MRI at another hospital last year which showed multiple bulging discs and an annular tear. PT-OP-C Subjective Start: 02/24/21 15:21 Freq: Status: Active Protocol: Document 03/12/21 11:15 DCW (Rec: 03/12/21 12:00 DCW [id number]) OP-PT Subjective Patient Comments Patient Comments Pt reports his back has been pretty good, not too bad. Still hurts here and there, if I'm bent over or squatting down for too long, but otherwise good. PT-OP-F Manual Assessment Start: 02/24/21 15:21 Freq: Status: Active Protocol: Document 02/24/21 14:30 DCW (Rec: 02/24/21 15:48 DCW [id number]) Manual Assessments Soft Tissue Assessment Soft Tissue Mobility Assessment Severe tone R piriformis, Moderate tone R QL, R paraspinals PT-OP-K Range of Motion Start: 02/24/21 15:21 Freq: Status: Active Protocol: Document 02/24/21 14:30 DCW (Rec: 02/24/21 15:48 DCW [id number]) Lumbar Spine Range of Motion Lumbar Spine Active Degrees Testing Position Standing Flexion 70 Extension 25 Lateral Flexion Left 52 Lateral Flexion Right 50 Comments Lateral flexion measured in cm from floor to finger-tips PT-OP-L Special Tests Start: 02/24/21 15:21 Freq: Status: Active Protocol: Document 02/24/21 14:30 DCW (Rec: 02/24/21 15:48 DCW [id number]) Special Tests Lumbar Spine Special Tests DIEGO Test Results Negative Standing Flexion Test Results General pain Straight Leg Raise Test Results Positive R Slump Test Results Stretch of right nerve Manual Traction Test Results R stretching Compression Test Results Negative A-P Shearing Test Results Negative PT-OP-M Strength Start: 02/24/21 15:21 Freq: Status: Active Protocol: Document 02/24/21 14:30 DCW (Rec: 02/24/21 15:48 DCW [id number]) Hip Strength Hip Manual Muscle Testing Right Flexion (L2) 5 Normal Abduction 5 Normal Adduction 5 Normal External Rotation 5 Normal Internal Rotation 5 Normal Left Flexion (L2) 5 Normal Abduction 5 Normal Adduction 5 Normal External Rotation 5 Normal Internal Rotation 5 Normal PT-OP-Q Treatments Start: 02/24/21 15:21 Freq: Status: Active Protocol: Document 03/12/21 11:15 DCW (Rec: 03/12/21 12:00 DCW [id number]) Gym Equipment Therapeutic Ball Bridging Exercise Details Bridging /c feet on ball Ball Size/Color Red - 55 cm Body Position Supine LTR Exercise Details Low trunk rotations Ball Size/Color Red - 55 cm Body Position Supine Therapeutic Exercises Supine Exercises 2 Supine Exercise Name Hamstring stretch Side bilateral 1 Supine Exercise Name Piriformis stretch - knee to opposite shoulder Side bilateral Manual Therapy Treatment Soft Tissue Mobilization 2 Body Location R Psoas Mobilization Type Sustained Pressure Intensity/Depth Deep Body Position Supine 1 Body Location R Piriformis Mobilization Type Strumming,Sustained Pressure Intensity/Depth Moderate Body Position Sidelying PT-OP-R Modalities Start: 02/24/21 15:21 Freq: Status: Active Protocol: Document 03/12/21 11:15 DCW (Rec: 03/12/21 12:00 DCW [id number]) Spinal Traction Traction Treatment Lumbar Method Mechanical,Static Patient Position Hooklying Force Applied (Pounds) 60 Duration of Treatment (Minutes) 10 PT-OP-T Assessment and Plan Start: 02/24/21 15:21 Freq: Status: Active Protocol: Document 03/12/21 11:15 DCW (Rec: 03/12/21 12:00 DCW [id number]) Physical Therapy Assessment Impairments Impairments Functional Activities, Functional Mobility,Pain,Soft Tissue Mobility,Tone Goals Three Impairment Pt experiences right neural tension in leg with SLR/ankle flexion Senior Data Analyst Goal (LTG) Pt to tolerate R SLR with ankle pumps without increase shooting pain to show release of sciatic neural tension LTG Duration 04/24/21 Two Impairment Severe tone along right piriformis Senior Data Analyst Goal (LTG) Pt to exhibit right piriformis tone to mild-moderate to improve right hip flexibility. LTG Duration 04/24/21 One Impairment Pt does not have an appropriate home exercise program Short Term Goal (STG) Pt to be independent and complaint with an appropriate HEP STG Duration 03/27/21 Assessment Summary Assessment Pt continues to show some improvement with pain levels and mobility since beginning therapy, tolerating use of lumbar traction very well. Physical Therapy Plan Frequency and Duration Frequency of Treatment 2x/Week Duration of Treatment Two months Plan of Care Start Date 02/24/21 Plan of Care End Date 04/24/21 Therapeutic Interventions Therapeutic Interventions Aquatic Therapy,Home Exercise Program,Joint Mobilizations, Manual Therapy,Neuromuscular Re-education,Patient/Caregiver Education,Self-Care/Home Management,Soft Tissue Mobilization,Therapeutic Activities,Therapeutic Exercises Modalities Cold Pack/Ice Massage,Electric Stimulation,Hot Packs, Traction- Mechanical, Ultrasound Next Visit Focus/Plan Next Note Type Treatment Note Next Visit Plan STM, stretching, traction
--- NOTE | 2021-03-17 11:51 | PT.OTN ---
Current Diagnoses Lesion of sciatic nerve, right lower limb (03/17/21) Spondylosis, unspecified (03/17/21) Sciatica, right side (03/17/21) Lumbago with sciatica, right side (03/17/21) Physical Therapy Treatment Note PT-OP-A Visit Information Start: 02/24/21 15:21 Freq: Status: Active Protocol: Document 03/17/21 11:15 DCW (Rec: 03/17/21 11:51 DCW [id number]) Out-Patient Physical Therapy Visit Information Visit Information Visit Type Treatment Note Visit Start Time 11:15 Visit Stop Time 12:00 Total Visit Minutes 45 Visit Number 7 Number of ALEMITE OPERATOR Visits 0 Evaluation Information Evaluation Date 02/24/21 PT-OP-B Current Condition Start: 02/24/21 15:21 Freq: Status: Active Protocol: Document 02/24/21 14:30 DCW (Rec: 02/24/21 15:41 DCW [id number]) Current Condition History of Current Condition Onset Date ~1 year ago Current Complaints Low back pain with right-sided radicular symptoms History of Current Condition Pt is a 25 year old male presenting with a one year history of low back pain. Pt reports there was no initial injury, he was just bending down to put things away under his sink, and got severe pain in his low back. Pt notes he had to sit on the floor for ten minutes, and then eventually crawl down to his garage so his could take him to the ED. Reports his pain went away after 4-5 days, but continued to have a chronic low-level back ache. Then in December, pt once again started experiencing much more severe back pain with right-sided radicular symptoms, notes he was not able to stand or sit, only getting relief lying down, and once again this pain lasted about five days. Pt concerned both of his low-level back ache that doesn't go away, as well as this occasional sudden worsening of pain. Pt notes he did have an MRI at another hospital last year which showed multiple bulging discs and an annular tear. PT-OP-C Subjective Start: 02/24/21 15:21 Freq: Status: Active Protocol: Document 03/17/21 11:15 DCW (Rec: 03/17/21 11:51 DCW [id number]) OP-PT Subjective Patient Comments Patient Comments Pt notes his back is still doing pretty well overall. PT-OP-F Manual Assessment Start: 02/24/21 15:21 Freq: Status: Active Protocol: Document 02/24/21 14:30 DCW (Rec: 02/24/21 15:48 DCW [id number]) Manual Assessments Soft Tissue Assessment Soft Tissue Mobility Assessment Severe tone R piriformis, Moderate tone R QL, R paraspinals PT-OP-K Range of Motion Start: 02/24/21 15:21 Freq: Status: Active Protocol: Document 02/24/21 14:30 DCW (Rec: 02/24/21 15:48 DCW [id number]) Lumbar Spine Range of Motion Lumbar Spine Active Degrees Testing Position Standing Flexion 70 Extension 25 Lateral Flexion Left 52 Lateral Flexion Right 50 Comments Lateral flexion measured in cm from floor to finger-tips PT-OP-L Special Tests Start: 02/24/21 15:21 Freq: Status: Active Protocol: Document 02/24/21 14:30 DCW (Rec: 02/24/21 15:48 DCW [id number]) Special Tests Lumbar Spine Special Tests DIEGO Test Results Negative Standing Flexion Test Results General pain Straight Leg Raise Test Results Positive R Slump Test Results Stretch of right nerve Manual Traction Test Results R stretching Compression Test Results Negative A-P Shearing Test Results Negative PT-OP-M Strength Start: 02/24/21 15:21 Freq: Status: Active Protocol: Document 02/24/21 14:30 DCW (Rec: 02/24/21 15:48 DCW [id number]) Hip Strength Hip Manual Muscle Testing Right Flexion (L2) 5 Normal Abduction 5 Normal Adduction 5 Normal External Rotation 5 Normal Internal Rotation 5 Normal Left Flexion (L2) 5 Normal Abduction 5 Normal Adduction 5 Normal External Rotation 5 Normal Internal Rotation 5 Normal PT-OP-Q Treatments Start: 02/24/21 15:21 Freq: Status: Active Protocol: Document 03/17/21 11:15 DCW (Rec: 03/17/21 11:51 DCW [id number]) Therapeutic Exercises Supine Exercises 2 Supine Exercise Name Hamstring stretch Side bilateral 1 Supine Exercise Name Piriformis stretch - knee to opposite shoulder Side bilateral Manual Therapy Treatment Soft Tissue Mobilization 2 Body Location R Psoas Mobilization Type Sustained Pressure Intensity/Depth Deep Body Position Supine 1 Body Location R Piriformis Mobilization Type Strumming,Sustained Pressure Intensity/Depth Moderate Body Position Sidelying PT-OP-R Modalities Start: 02/24/21 15:21 Freq: Status: Active Protocol: Document 03/17/21 11:15 DCW (Rec: 03/17/21 11:51 DCW [id number]) Spinal Traction Traction Treatment Lumbar Method Mechanical,Static Patient Position Hooklying Force Applied (Pounds) 60 Duration of Treatment (Minutes) 10 PT-OP-T Assessment and Plan Start: 02/24/21 15:21 Freq: Status: Active Protocol: Document 03/17/21 11:15 DCW (Rec: 03/17/21 11:51 DCW [id number]) Physical Therapy Assessment Impairments Impairments Functional Activities, Functional Mobility,Pain,Soft Tissue Mobility,Tone Goals Three Impairment Pt experiences right neural tension in leg with SLR/ankle flexion Pattern Chart Writer Goal (LTG) Pt to tolerate R SLR with ankle pumps without increase shooting pain to show release of sciatic neural tension LTG Duration 04/24/21 Two Impairment Severe tone along right piriformis Pattern Chart Writer Goal (LTG) Pt to exhibit right piriformis tone to mild-moderate to improve right hip flexibility. LTG Duration 04/24/21 One Impairment Pt does not have an appropriate home exercise program Short Term Goal (STG) Pt to be independent and complaint with an appropriate HEP STG Duration 03/27/21 Assessment Summary Assessment Pt moving better today, increased ability with pain- free bed mobility and ambulation Physical Therapy Plan Frequency and Duration Frequency of Treatment 2x/Week Duration of Treatment Two months Plan of Care Start Date 02/24/21 Plan of Care End Date 04/24/21 Therapeutic Interventions Therapeutic Interventions Aquatic Therapy,Home Exercise Program,Joint Mobilizations, Manual Therapy,Neuromuscular Re-education,Patient/Caregiver Education,Self-Care/Home Management,Soft Tissue Mobilization,Therapeutic Activities,Therapeutic Exercises Modalities Cold Pack/Ice Massage,Electric Stimulation,Hot Packs, Traction- Mechanical, Ultrasound Next Visit Focus/Plan Next Note Type Treatment Note Next Visit Plan STM, stretching, traction
--- NOTE | 2021-03-19 11:52 | PT.OTN ---
Current Diagnoses Lesion of sciatic nerve, right lower limb (03/19/21) Spondylosis, unspecified (03/19/21) Sciatica, right side (03/19/21) Lumbago with sciatica, right side (03/19/21) Physical Therapy Treatment Note PT-OP-A Visit Information Start: 02/24/21 15:21 Freq: Status: Active Protocol: Document 03/19/21 11:15 DCW (Rec: 03/19/21 11:52 DCW [id number]) Out-Patient Physical Therapy Visit Information Visit Information Visit Type Treatment Note Visit Start Time 11:15 Visit Stop Time 12:00 Total Visit Minutes 45 Visit Number 8 Number of COOK ENCHILADA Visits 0 Evaluation Information Evaluation Date 02/24/21 PT-OP-B Current Condition Start: 02/24/21 15:21 Freq: Status: Active Protocol: Document 02/24/21 14:30 DCW (Rec: 02/24/21 15:41 DCW [id number]) Current Condition History of Current Condition Onset Date ~1 year ago Current Complaints Low back pain with right-sided radicular symptoms History of Current Condition Pt is a 25 year old male presenting with a one year history of low back pain. Pt reports there was no initial injury, he was just bending down to put things away under his sink, and got severe pain in his low back. Pt notes he had to sit on the floor for ten minutes, and then eventually crawl down to his garage so his could take him to the ED. Reports his pain went away after 4-5 days, but continued to have a chronic low-level back ache. Then in December, pt once again started experiencing much more severe back pain with right-sided radicular symptoms, notes he was not able to stand or sit, only getting relief lying down, and once again this pain lasted about five days. Pt concerned both of his low-level back ache that doesn't go away, as well as this occasional sudden worsening of pain. Pt notes he did have an MRI at another hospital last year which showed multiple bulging discs and an annular tear. PT-OP-C Subjective Start: 02/24/21 15:21 Freq: Status: Active Protocol: Document 03/19/21 11:15 DCW (Rec: 03/19/21 11:52 DCW [id number]) OP-PT Subjective Patient Comments Patient Comments Pt notes his back has been a little more sore today, I don' t know if I worked to hard yesterday or slept wrong or something. Nothing terrible, just achy. PT-OP-F Manual Assessment Start: 02/24/21 15:21 Freq: Status: Active Protocol: Document 02/24/21 14:30 DCW (Rec: 02/24/21 15:48 DCW [id number]) Manual Assessments Soft Tissue Assessment Soft Tissue Mobility Assessment Severe tone R piriformis, Moderate tone R QL, R paraspinals PT-OP-K Range of Motion Start: 02/24/21 15:21 Freq: Status: Active Protocol: Document 02/24/21 14:30 DCW (Rec: 02/24/21 15:48 DCW [id number]) Lumbar Spine Range of Motion Lumbar Spine Active Degrees Testing Position Standing Flexion 70 Extension 25 Lateral Flexion Left 52 Lateral Flexion Right 50 Comments Lateral flexion measured in cm from floor to finger-tips PT-OP-L Special Tests Start: 02/24/21 15:21 Freq: Status: Active Protocol: Document 02/24/21 14:30 DCW (Rec: 02/24/21 15:48 DCW [id number]) Special Tests Lumbar Spine Special Tests DIEGO Test Results Negative Standing Flexion Test Results General pain Straight Leg Raise Test Results Positive R Slump Test Results Stretch of right nerve Manual Traction Test Results R stretching Compression Test Results Negative A-P Shearing Test Results Negative PT-OP-M Strength Start: 02/24/21 15:21 Freq: Status: Active Protocol: Document 02/24/21 14:30 DCW (Rec: 02/24/21 15:48 DCW [id number]) Hip Strength Hip Manual Muscle Testing Right Flexion (L2) 5 Normal Abduction 5 Normal Adduction 5 Normal External Rotation 5 Normal Internal Rotation 5 Normal Left Flexion (L2) 5 Normal Abduction 5 Normal Adduction 5 Normal External Rotation 5 Normal Internal Rotation 5 Normal PT-OP-Q Treatments Start: 02/24/21 15:21 Freq: Status: Active Protocol: Document 03/19/21 11:15 DCW (Rec: 03/19/21 11:52 DCW [id number]) Therapeutic Exercises Supine Exercises 2 Supine Exercise Name Hamstring stretch Side bilateral 1 Supine Exercise Name Piriformis stretch - knee to opposite shoulder Side bilateral Manual Therapy Treatment Soft Tissue Mobilization 2 Body Location R Psoas Mobilization Type Sustained Pressure Intensity/Depth Deep Body Position Supine 1 Body Location R Piriformis Mobilization Type Strumming,Sustained Pressure Intensity/Depth Moderate Body Position Sidelying PT-OP-R Modalities Start: 02/24/21 15:21 Freq: Status: Active Protocol: Document 03/19/21 11:15 DCW (Rec: 03/19/21 11:52 DCW [id number]) Spinal Traction Traction Treatment Lumbar Method Mechanical,Static Patient Position Hooklying Force Applied (Pounds) 60 Duration of Treatment (Minutes) 10 PT-OP-T Assessment and Plan Start: 02/24/21 15:21 Freq: Status: Active Protocol: Document 03/19/21 11:15 DCW (Rec: 03/19/21 11:52 DCW [id number]) Physical Therapy Assessment Impairments Impairments Functional Activities, Functional Mobility,Pain,Soft Tissue Mobility,Tone Goals Three Impairment Pt experiences right neural tension in leg with SLR/ankle flexion Transit Worker Goal (LTG) Pt to tolerate R SLR with ankle pumps without increase shooting pain to show release of sciatic neural tension LTG Duration 04/24/21 Two Impairment Severe tone along right piriformis Half-Way Goal (LTG) Pt to exhibit right piriformis tone to mild-moderate to improve right hip flexibility. LTG Duration 04/24/21 One Impairment Pt does not have an appropriate home exercise program Short Term Goal (STG) Pt to be independent and complaint with an appropriate HEP STG Duration 03/27/21 Assessment Summary Assessment Improving tone in piriformis and psoas, still experiencing occasional increased pain with seemingly no cause. Physical Therapy Plan Frequency and Duration Frequency of Treatment 2x/Week Duration of Treatment Two months Plan of Care Start Date 02/24/21 Plan of Care End Date 04/24/21 Therapeutic Interventions Therapeutic Interventions Aquatic Therapy,Home Exercise Program,Joint Mobilizations, Manual Therapy,Neuromuscular Re-education,Patient/Caregiver Education,Self-Care/Home Management,Soft Tissue Mobilization,Therapeutic Activities,Therapeutic Exercises Modalities Cold Pack/Ice Massage,Electric Stimulation,Hot Packs, Traction- Mechanical, Ultrasound Next Visit Focus/Plan Next Note Type Treatment Note Next Visit Plan STM, stretching, traction
--- NOTE | 2021-03-24 09:56 | PT.OTN ---
Current Diagnoses Lesion of sciatic nerve, right lower limb (03/24/21) Spondylosis, unspecified (03/24/21) Sciatica, right side (03/24/21) Lumbago with sciatica, right side (03/24/21) Physical Therapy Treatment Note PT-OP-A Visit Information Start: 02/24/21 15:21 Freq: Status: Active Protocol: Document 03/24/21 09:03 SP (Rec: 03/24/21 10:11 SP [id number]) Out-Patient Physical Therapy Visit Information Visit Information Visit Type Treatment Note Visit Note 10th visit next appt. Visit Start Time 09:03 Visit Stop Time 09:56 Total Visit Minutes 53 Visit Number 9 Number of LIME SPREADER Visits 1 Evaluation Information Evaluation Date 02/24/21 PT-OP-B Current Condition Start: 02/24/21 15:21 Freq: Status: Active Protocol: Document 02/24/21 14:30 DCW (Rec: 02/24/21 15:41 DCW [id number]) Current Condition History of Current Condition Onset Date ~1 year ago Current Complaints Low back pain with right-sided radicular symptoms History of Current Condition Pt is a 25 year old male presenting with a one year history of low back pain. Pt reports there was no initial injury, he was just bending down to put things away under his sink, and got severe pain in his low back. Pt notes he had to sit on the floor for ten minutes, and then eventually crawl down to his garage so his could take him to the ED. Reports his pain went away after 4-5 days, but continued to have a chronic low-level back ache. Then in December, pt once again started experiencing much more severe back pain with right-sided radicular symptoms, notes he was not able to stand or sit, only getting relief lying down, and once again this pain lasted about five days. Pt concerned both of his low-level back ache that doesn't go away, as well as this occasional sudden worsening of pain. Pt notes he did have an MRI at another hospital last year which showed multiple bulging discs and an annular tear. PT-OP-C Subjective Start: 02/24/21 15:21 Freq: Status: Active Protocol: Document 03/24/21 09:03 SP (Rec: 03/24/21 10:11 SP [id number]) OP-PT Subjective Patient Comments Patient Comments Pt notes his back has been a little more sore today, I don' t know if I worked to hard yesterday or slept wrong or something. Nothing terrible, just achy. 4/10 discomfort and LB tighteness arriving. Pt states always feels better when leaves PT. PT-OP-F Manual Assessment Start: 02/24/21 15:21 Freq: Status: Active Protocol: Document 02/24/21 14:30 DCW (Rec: 02/24/21 15:48 DCW [id number]) Manual Assessments Soft Tissue Assessment Soft Tissue Mobility Assessment Severe tone R piriformis, Moderate tone R QL, R paraspinals PT-OP-K Range of Motion Start: 02/24/21 15:21 Freq: Status: Active Protocol: Document 02/24/21 14:30 DCW (Rec: 02/24/21 15:48 DCW [id number]) Lumbar Spine Range of Motion Lumbar Spine Active Degrees Testing Position Standing Flexion 70 Extension 25 Lateral Flexion Left 52 Lateral Flexion Right 50 Comments Lateral flexion measured in cm from floor to finger-tips PT-OP-L Special Tests Start: 02/24/21 15:21 Freq: Status: Active Protocol: Document 02/24/21 14:30 DCW (Rec: 02/24/21 15:48 DCW [id number]) Special Tests Lumbar Spine Special Tests DIEGO Test Results Negative Standing Flexion Test Results General pain Straight Leg Raise Test Results Positive R Slump Test Results Stretch of right nerve Manual Traction Test Results R stretching Compression Test Results Negative A-P Shearing Test Results Negative PT-OP-M Strength Start: 02/24/21 15:21 Freq: Status: Active Protocol: Document 02/24/21 14:30 DCW (Rec: 02/24/21 15:48 DCW [id number]) Hip Strength Hip Manual Muscle Testing Right Flexion (L2) 5 Normal Abduction 5 Normal Adduction 5 Normal External Rotation 5 Normal Internal Rotation 5 Normal Left Flexion (L2) 5 Normal Abduction 5 Normal Adduction 5 Normal External Rotation 5 Normal Internal Rotation 5 Normal PT-OP-Q Treatments Start: 02/24/21 15:21 Freq: Status: Active Protocol: Document 03/24/21 09:03 SP (Rec: 03/24/21 10:11 SP [id number]) Therapeutic Exercises Supine Exercises Saurav stretch Supine Exercise Name added to HEP Side right Resistance passive stretch, then strap quad Reps/Minutes 2x 60 sec Comments cued TA fac if needed for no LB recruitment 2 Supine Exercise Name Hamstring stretch- added to HEP Side bilateral Equipment Used w/ strap Reps/Minutes 60s x2 total (forward, med, lat) Comments cued awareness of TA/ no LB recruitment 1 Supine Exercise Name Piriformis stretch - knee to opposite chest/ opp shoulder Side bilateral Resistance grasp LE self pull toward chest Equipment Used opposite LE straight Reps/Minutes 60s x2 Comments cued TA awareness, Other Exercises self STMs Other Exercise Name rolling pin: ITB/ QUAD discussed HS/ calf/ITB, ball wall glut/ paraspinals Side right Resistance added to HEP for self flexibility Comments manual IT quad B, discusse self 1/2 knee hip flex stretch Other Exercise Name added to HEP Side right Reps/Minutes 60 sec x2 Manual Therapy Treatment Soft Tissue Mobilization 2 Body Location R Psoas Mobilization Type Sustained Pressure Intensity/Depth Deep Body Position Supine Comments good feedback response, able good slow breath, softening muscle with exhale. 1 Body Location R Piriformis Mobilization Type Strumming,Sustained Pressure Intensity/Depth Moderate Body Position Sidelying Comments manual and instruction discussion self STMs ball on wall/ seated in chair, rolling pin to LE musculature. Good understanding. Self-Care/Home Management Treatment Education Patient Education Home Exercise Program,Pain Management Other Education Initiated self stretching and use of strap when needed, self STMs for carryover relief at home, provided HOs. Time discussed sleeping with use pillows between B knees and under ribcage on side and under thighs supine for spinal alignment. PT-OP-R Modalities Start: 02/24/21 15:21 Freq: Status: Active Protocol: Document 03/24/21 09:03 SP (Rec: 03/24/21 10:11 SP [id number]) Spinal Traction Traction Treatment Lumbar Method Mechanical,Static Patient Position Hooklying Force Applied (Pounds) 60 Duration of Treatment (Minutes) 10 Traction Treatment Comment sustained pressure, (portable traction unit) 0/10 pain post traction PT-OP-T Assessment and Plan Start: 02/24/21 15:21 Freq: Status: Active Protocol: Document 03/24/21 09:03 SP (Rec: 03/24/21 10:11 SP [id number]) Physical Therapy Assessment Goals Three Impairment Pt experiences right neural tension in leg with SLR/ankle flexion Custodial Goal (LTG) Pt to tolerate R SLR with ankle pumps without increase shooting pain to show release of sciatic neural tension LTG Duration 04/24/21 Two Impairment Severe tone along right piriformis Custodial Goal (LTG) Pt to exhibit right piriformis tone to mild-moderate to improve right hip flexibility. LTG Duration 04/24/21 One Impairment Pt does not have an appropriate home exercise program Short Term Goal (STG) Pt to be independent and complaint with an appropriate HEP STG Duration 03/27/21 Assessment Summary Assessment Good muscle softening to manual R psoas and piriformis softening w/ breath. Discussed sleeping use pillows with good understanding. Pt good understanding of instruction self stretching and manual with how apply at home for carryover. Pt had no pain leaving. Physical Therapy Plan Frequency and Duration Frequency of Treatment 2x/Week Duration of Treatment Two months Plan of Care Start Date 02/24/21 Plan of Care End Date 04/24/21 Therapeutic Interventions Therapeutic Interventions Aquatic Therapy,Home Exercise Program,Joint Mobilizations, Manual Therapy,Neuromuscular Re-education,Patient/Caregiver Education,Self-Care/Home Management,Soft Tissue Mobilization,Therapeutic Activities,Therapeutic Exercises Modalities Cold Pack/Ice Massage,Electric Stimulation,Hot Packs, Traction- Mechanical, Ultrasound Next Visit Focus/Plan Next Note Type Treatment Note Next Visit Plan Assess response to added self stretching/STMs to HEP. POC: STM, stretching, traction
--- NOTE | 2021-03-31 15:56 | PT.OTN ---
Current Diagnoses Lesion of sciatic nerve, right lower limb (03/31/21) Spondylosis, unspecified (03/31/21) Sciatica, right side (03/31/21) Lumbago with sciatica, right side (03/31/21) Physical Therapy Treatment Note PT-OP-A Visit Information Start: 02/24/21 15:21 Freq: Status: Active Protocol: Document 03/31/21 15:15 DCW (Rec: 03/31/21 15:56 DCW [id number]) Out-Patient Physical Therapy Visit Information Visit Information Visit Type Treatment Note Visit Start Time 15:15 Visit Stop Time 16:00 Total Visit Minutes 45 Visit Number 10 Number of ALLEY TENDER Visits 0 Evaluation Information Evaluation Date 02/24/21 PT-OP-B Current Condition Start: 02/24/21 15:21 Freq: Status: Active Protocol: Document 02/24/21 14:30 DCW (Rec: 02/24/21 15:41 DCW [id number]) Current Condition History of Current Condition Onset Date ~1 year ago Current Complaints Low back pain with right-sided radicular symptoms History of Current Condition Pt is a 25 year old male presenting with a one year history of low back pain. Pt reports there was no initial injury, he was just bending down to put things away under his sink, and got severe pain in his low back. Pt notes he had to sit on the floor for ten minutes, and then eventually crawl down to his garage so his could take him to the ED. Reports his pain went away after 4-5 days, but continued to have a chronic low-level back ache. Then in December, pt once again started experiencing much more severe back pain with right-sided radicular symptoms, notes he was not able to stand or sit, only getting relief lying down, and once again this pain lasted about five days. Pt concerned both of his low-level back ache that doesn't go away, as well as this occasional sudden worsening of pain. Pt notes he did have an MRI at another hospital last year which showed multiple bulging discs and an annular tear. PT-OP-C Subjective Start: 02/24/21 15:21 Freq: Status: Active Protocol: Document 03/31/21 15:15 DCW (Rec: 03/31/21 15:56 DCW [id number]) OP-PT Subjective Patient Comments Patient Comments Still my same fairly constant pain, but some days are better than others. PT-OP-F Manual Assessment Start: 02/24/21 15:21 Freq: Status: Active Protocol: Document 02/24/21 14:30 DCW (Rec: 02/24/21 15:48 DCW [id number]) Manual Assessments Soft Tissue Assessment Soft Tissue Mobility Assessment Severe tone R piriformis, Moderate tone R QL, R paraspinals PT-OP-K Range of Motion Start: 02/24/21 15:21 Freq: Status: Active Protocol: Document 02/24/21 14:30 DCW (Rec: 02/24/21 15:48 DCW [id number]) Lumbar Spine Range of Motion Lumbar Spine Active Degrees Testing Position Standing Flexion 70 Extension 25 Lateral Flexion Left 52 Lateral Flexion Right 50 Comments Lateral flexion measured in cm from floor to finger-tips PT-OP-L Special Tests Start: 02/24/21 15:21 Freq: Status: Active Protocol: Document 02/24/21 14:30 DCW (Rec: 02/24/21 15:48 DCW [id number]) Special Tests Lumbar Spine Special Tests DIEGO Test Results Negative Standing Flexion Test Results General pain Straight Leg Raise Test Results Positive R Slump Test Results Stretch of right nerve Manual Traction Test Results R stretching Compression Test Results Negative A-P Shearing Test Results Negative PT-OP-M Strength Start: 02/24/21 15:21 Freq: Status: Active Protocol: Document 02/24/21 14:30 DCW (Rec: 02/24/21 15:48 DCW [id number]) Hip Strength Hip Manual Muscle Testing Right Flexion (L2) 5 Normal Abduction 5 Normal Adduction 5 Normal External Rotation 5 Normal Internal Rotation 5 Normal Left Flexion (L2) 5 Normal Abduction 5 Normal Adduction 5 Normal External Rotation 5 Normal Internal Rotation 5 Normal PT-OP-Q Treatments Start: 02/24/21 15:21 Freq: Status: Active Protocol: Document 03/31/21 15:15 DCW (Rec: 03/31/21 15:56 DCW [id number]) Therapeutic Exercises Supine Exercises 2 Supine Exercise Name Hamstring stretch Side bilateral 1 Supine Exercise Name Piriformis stretch - knee to opposite shoulder Side bilateral Manual Therapy Treatment Soft Tissue Mobilization 2 Body Location R Psoas Mobilization Type Sustained Pressure Intensity/Depth Deep Body Position Supine 1 Body Location R Piriformis Mobilization Type Strumming,Sustained Pressure Intensity/Depth Moderate Body Position Sidelying PT-OP-R Modalities Start: 02/24/21 15:21 Freq: Status: Active Protocol: Document 03/31/21 15:15 DCW (Rec: 03/31/21 15:56 DCW [id number]) Spinal Traction Traction Treatment Lumbar Method Mechanical,Static Patient Position Hooklying Force Applied (Pounds) 60 Duration of Treatment (Minutes) 10 Traction Treatment Comment sustained pressure, (portable traction unit) 0/10 pain post traction PT-OP-T Assessment and Plan Start: 02/24/21 15:21 Freq: Status: Active Protocol: Document 03/31/21 15:15 DCW (Rec: 03/31/21 15:56 DC [id number]) Physical Therapy Assessment Impairments Impairments Functional Activities, Functional Mobility,Pain,Soft Tissue Mobility,Tone Goals Three Impairment Pt experiences right neural tension in leg with SLR/ankle flexion Dental Lab Technician Goal (LTG) Pt to tolerate R SLR with ankle pumps without increase shooting pain to show release of sciatic neural tension LTG Duration 04/24/21 Two Impairment Severe tone along right piriformis Dental Lab Technician Goal (LTG) Pt to exhibit right piriformis tone to mild-moderate to improve right hip flexibility. LTG Duration 04/24/21 One Impairment Pt does not have an appropriate home exercise program Short Term Goal (STG) Pt to be independent and complaint with an appropriate HEP STG Duration 03/27/21 Assessment Summary Assessment Tolerating STM very well, notable improvement with pain level severity. Still continue however to experience fairly constant pain from low back. Pt got referral for a new MRI, will likely receive prior to next visit. Physical Therapy Plan Frequency and Duration Frequency of Treatment 2x/Week Duration of Treatment Two months Plan of Care Start Date 02/24/21 Plan of Care End Date 04/24/21 Therapeutic Interventions Therapeutic Interventions Aquatic Therapy,Home Exercise Program,Joint Mobilizations, Manual Therapy,Neuromuscular Re-education,Patient/Caregiver Education,Self-Care/Home Management,Soft Tissue Mobilization,Therapeutic Activities,Therapeutic Exercises Modalities Cold Pack/Ice Massage,Electric Stimulation,Hot Packs, Traction- Mechanical, Ultrasound Next Visit Focus/Plan Next Note Type Treatment Note Next Visit Plan Assess response to added self stretching/STMs to HEP. POC: STM, stretching, traction
--- NOTE | 2021-04-02 11:51 | PT.OTN ---
Current Diagnoses Lesion of sciatic nerve, right lower limb (04/02/21) Spondylosis, unspecified (04/02/21) Sciatica, right side (04/02/21) Lumbago with sciatica, right side (04/02/21) Physical Therapy Treatment Note PT-OP-A Visit Information Start: 02/24/21 15:21 Freq: Status: Active Protocol: Document 04/02/21 11:15 DCW (Rec: 04/02/21 11:51 DCW [id number]) Out-Patient Physical Therapy Visit Information Visit Information Visit Type Treatment Note Visit Start Time 11:15 Visit Stop Time 12:00 Total Visit Minutes 45 Visit Number 11 Number of DIRECTOR ENVIRONMENTAL Visits 0 Evaluation Information Evaluation Date 02/24/21 PT-OP-B Current Condition Start: 02/24/21 15:21 Freq: Status: Active Protocol: Document 02/24/21 14:30 DCW (Rec: 02/24/21 15:41 DCW [id number]) Current Condition History of Current Condition Onset Date ~1 year ago Current Complaints Low back pain with right-sided radicular symptoms History of Current Condition Pt is a 25 year old male presenting with a one year history of low back pain. Pt reports there was no initial injury, he was just bending down to put things away under his sink, and got severe pain in his low back. Pt notes he had to sit on the floor for ten minutes, and then eventually crawl down to his garage so his could take him to the ED. Reports his pain went away after 4-5 days, but continued to have a chronic low-level back ache. Then in December, pt once again started experiencing much more severe back pain with right-sided radicular symptoms, notes he was not able to stand or sit, only getting relief lying down, and once again this pain lasted about five days. Pt concerned both of his low-level back ache that doesn't go away, as well as this occasional sudden worsening of pain. Pt notes he did have an MRI at another hospital last year which showed multiple bulging discs and an annular tear. PT-OP-C Subjective Start: 02/24/21 15:21 Freq: Status: Active Protocol: Document 04/02/21 11:15 DCW (Rec: 04/02/21 11:51 DCW [id number]) OP-PT Subjective Patient Comments Patient Comments Pt feeling fairly good today. PT-OP-F Manual Assessment Start: 02/24/21 15:21 Freq: Status: Active Protocol: Document 02/24/21 14:30 DCW (Rec: 02/24/21 15:48 DCW [id number]) Manual Assessments Soft Tissue Assessment Soft Tissue Mobility Assessment Severe tone R piriformis, Moderate tone R QL, R paraspinals PT-OP-K Range of Motion Start: 02/24/21 15:21 Freq: Status: Active Protocol: Document 02/24/21 14:30 DCW (Rec: 02/24/21 15:48 DCW [id number]) Lumbar Spine Range of Motion Lumbar Spine Active Degrees Testing Position Standing Flexion 70 Extension 25 Lateral Flexion Left 52 Lateral Flexion Right 50 Comments Lateral flexion measured in cm from floor to finger-tips PT-OP-L Special Tests Start: 02/24/21 15:21 Freq: Status: Active Protocol: Document 02/24/21 14:30 DCW (Rec: 02/24/21 15:48 DCW [id number]) Special Tests Lumbar Spine Special Tests DIEGO Test Results Negative Standing Flexion Test Results General pain Straight Leg Raise Test Results Positive R Slump Test Results Stretch of right nerve Manual Traction Test Results R stretching Compression Test Results Negative A-P Shearing Test Results Negative PT-OP-M Strength Start: 02/24/21 15:21 Freq: Status: Active Protocol: Document 02/24/21 14:30 DCW (Rec: 02/24/21 15:48 DCW [id number]) Hip Strength Hip Manual Muscle Testing Right Flexion (L2) 5 Normal Abduction 5 Normal Adduction 5 Normal External Rotation 5 Normal Internal Rotation 5 Normal Left Flexion (L2) 5 Normal Abduction 5 Normal Adduction 5 Normal External Rotation 5 Normal Internal Rotation 5 Normal PT-OP-Q Treatments Start: 02/24/21 15:21 Freq: Status: Active Protocol: Document 04/02/21 11:15 DCW (Rec: 04/02/21 11:51 DCW [id number]) Gym Equipment Therapeutic Ball Bridging Exercise Details Bridging /c feet on ball Ball Size/Color Red - 55 cm Body Position Supine LTR Exercise Details Low trunk rotations Ball Size/Color Red - 55 cm Body Position Supine Manual Therapy Treatment Soft Tissue Mobilization 2 Body Location R Psoas Mobilization Type Sustained Pressure Intensity/Depth Deep Body Position Supine 1 Body Location R Piriformis Mobilization Type Strumming,Sustained Pressure Intensity/Depth Moderate Body Position Sidelying PT-OP-R Modalities Start: 02/24/21 15:21 Freq: Status: Active Protocol: Document 04/02/21 11:15 DCW (Rec: 04/02/21 11:51 DCW [id number]) Spinal Traction Traction Treatment Lumbar Method Mechanical,Static Patient Position Hooklying Force Applied (Pounds) 60 Duration of Treatment (Minutes) 10 Traction Treatment Comment sustained pressure, (portable traction unit) 0/10 pain post traction PT-OP-T Assessment and Plan Start: 02/24/21 15:21 Freq: Status: Active Protocol: Document 04/02/21 11:15 DCW (Rec: 04/02/21 11:51 DC [id number]) Physical Therapy Assessment Impairments Impairments Functional Activities, Functional Mobility,Pain,Soft Tissue Mobility,Tone Goals Three Impairment Pt experiences right neural tension in leg with SLR/ankle flexion Halfway Goal (LTG) Pt to tolerate R SLR with ankle pumps without increase shooting pain to show release of sciatic neural tension LTG Duration 04/24/21 Two Impairment Severe tone along right piriformis Blood Donor Unit Assistant Goal (LTG) Pt to exhibit right piriformis tone to mild-moderate to improve right hip flexibility. LTG Duration 04/24/21 One Impairment Pt does not have an appropriate home exercise program Short Term Goal (STG) Pt to be independent and complaint with an appropriate HEP STG Duration 03/27/21 Assessment Summary Assessment Pt continues to respond well to STM and traction, fairly consistent with HEP. Physical Therapy Plan Frequency and Duration Frequency of Treatment 2x/Week Duration of Treatment Two months Plan of Care Start Date 02/24/21 Plan of Care End Date 04/24/21 Therapeutic Interventions Therapeutic Interventions Aquatic Therapy,Home Exercise Program,Joint Mobilizations, Manual Therapy,Neuromuscular Re-education,Patient/Caregiver Education,Self-Care/Home Management,Soft Tissue Mobilization,Therapeutic Activities,Therapeutic Exercises Modalities Cold Pack/Ice Massage,Electric Stimulation,Hot Packs, Traction- Mechanical, Ultrasound Next Visit Focus/Plan Next Note Type Treatment Note Next Visit Plan Attempt some standing core exercises POC: STM, stretching, traction
--- NOTE | 2021-04-07 09:00 | PT.OTN ---
Current Diagnoses Lesion of sciatic nerve, right lower limb (04/07/21) Spondylosis, unspecified (04/07/21) Sciatica, right side (04/07/21) Lumbago with sciatica, right side (04/07/21) Physical Therapy Treatment Note PT-OP-A Visit Information Start: 02/24/21 15:21 Freq: Status: Active Protocol: Document 04/07/21 08:18 SP (Rec: 04/07/21 09:03 SP [id number]) Out-Patient Physical Therapy Visit Information Visit Information Visit Type Treatment Note Visit Start Time 08:18 Visit Stop Time 09:00 Total Visit Minutes 42 Visit Number 12 Number of PICK AND SHOVEL WORKER Visits 1 Evaluation Information Evaluation Date 02/24/21 PT-OP-B Current Condition Start: 02/24/21 15:21 Freq: Status: Active Protocol: Document 02/24/21 14:30 DCW (Rec: 02/24/21 15:41 DCW [id number]) Current Condition History of Current Condition Onset Date ~1 year ago Current Complaints Low back pain with right-sided radicular symptoms History of Current Condition Pt is a 25 year old male presenting with a one year history of low back pain. Pt reports there was no initial injury, he was just bending down to put things away under his sink, and got severe pain in his low back. Pt notes he had to sit on the floor for ten minutes, and then eventually crawl down to his garage so his could take him to the ED. Reports his pain went away after 4-5 days, but continued to have a chronic low-level back ache. Then in December, pt once again started experiencing much more severe back pain with right-sided radicular symptoms, notes he was not able to stand or sit, only getting relief lying down, and once again this pain lasted about five days. Pt concerned both of his low-level back ache that doesn't go away, as well as this occasional sudden worsening of pain. Pt notes he did have an MRI at another hospital last year which showed multiple bulging discs and an annular tear. PT-OP-C Subjective Start: 02/24/21 15:21 Freq: Status: Active Protocol: Document 04/07/21 08:18 SP (Rec: 04/07/21 09:03 SP [id number]) OP-PT Subjective Patient Comments Patient Comments Pt reports back pain getting better, maybe 1-2/10 when woke up. Pt states compliant with stretching. Hasn't looked for his Tball. Does a routine with single 13 # and 15# georgianabell. PT-OP-F Manual Assessment Start: 02/24/21 15:21 Freq: Status: Active Protocol: Document 02/24/21 14:30 DCW (Rec: 02/24/21 15:48 DCW [id number]) Manual Assessments Soft Tissue Assessment Soft Tissue Mobility Assessment Severe tone R piriformis, Moderate tone R QL, R paraspinals PT-OP-K Range of Motion Start: 02/24/21 15:21 Freq: Status: Active Protocol: Document 02/24/21 14:30 DCW (Rec: 02/24/21 15:48 DCW [id number]) Lumbar Spine Range of Motion Lumbar Spine Active Degrees Testing Position Standing Flexion 70 Extension 25 Lateral Flexion Left 52 Lateral Flexion Right 50 Comments Lateral flexion measured in cm from floor to finger-tips PT-OP-L Special Tests Start: 02/24/21 15:21 Freq: Status: Active Protocol: Document 02/24/21 14:30 DCW (Rec: 02/24/21 15:48 DCW [id number]) Special Tests Lumbar Spine Special Tests DIEGO Test Results Negative Standing Flexion Test Results General pain Straight Leg Raise Test Results Positive R Slump Test Results Stretch of right nerve Manual Traction Test Results R stretching Compression Test Results Negative A-P Shearing Test Results Negative PT-OP-M Strength Start: 02/24/21 15:21 Freq: Status: Active Protocol: Document 02/24/21 14:30 DCW (Rec: 02/24/21 15:48 DCW [id number]) Hip Strength Hip Manual Muscle Testing Right Flexion (L2) 5 Normal Abduction 5 Normal Adduction 5 Normal External Rotation 5 Normal Internal Rotation 5 Normal Left Flexion (L2) 5 Normal Abduction 5 Normal Adduction 5 Normal External Rotation 5 Normal Internal Rotation 5 Normal PT-OP-Q Treatments Start: 02/24/21 15:21 Freq: Status: Active Protocol: Document 04/07/21 08:18 SP (Rec: 04/07/21 09:03 SP [id number]) Gym Equipment Therapeutic Ball Bridging Exercise Details Bridging /c feet on ball Ball Size/Color Red - 55 cm Body Position Supine Reps/Duration 2x10 Comments good TA, form and feedback, painfree LTR Exercise Details Low trunk rotations Ball Size/Color Red - 55 cm Body Position Supine Reps/Duration 2x10 Comments cued TA awareness, good slow pacing rotation Therapeutic Exercises Standing Exercises resisted rows Standing Exercise Name added to HEP- didn't want a hand out Resistance TB #4 Reps/Minutes 2x10 Comments good TA, painfree resisted shoulder extension Standing Exercise Name added to HEP- didn't want a hand out Resistance TB #3 Reps/Minutes 2x10 Comments cued scap depress stabilization Other Exercises self STMs Other Exercise Name piriformis, QL, lumbar paraspinals Side right Resistance added to HEP (did not want a HO) Equipment Used racquetball on wall Comments good feedback response 1/2 knee hip flex stretch Other Exercise Name discussed hip flexor stretch performance can incorporate at work if needed Side right Equipment Used cushion under R knee, reach [place] Reps/Minutes 60 sec x2 Comments states performs at home when needed Manual Therapy Treatment Soft Tissue Mobilization 2 Body Location R Psoas Mobilization Type Sustained Pressure Intensity/Depth Deep Body Position Supine 1 Body Location R Piriformis Mobilization Type Strumming,Sustained Pressure Intensity/Depth Moderate Body Position Sidelying PT-OP-R Modalities Start: 02/24/21 15:21 Freq: Status: Active Protocol: Document 04/07/21 08:18 SP (Rec: 04/07/21 09:03 SP [id number]) Spinal Traction Traction Treatment Lumbar Method Mechanical,Static Patient Position Hooklying Force Applied (Pounds) 60 Duration of Treatment (Minutes) 10 Traction Treatment Comment sustained pressure, (portable traction unit) 0/10 pain post traction PT-OP-T Assessment and Plan Start: 02/24/21 15:21 Freq: Status: Active Protocol: Document 04/07/21 08:18 SP (Rec: 04/07/21 09:03 SP [id number]) Physical Therapy Assessment Goals Three Impairment Pt experiences right neural tension in leg with SLR/ankle flexion Fci Goal (LTG) Pt to tolerate R SLR with ankle pumps without increase shooting pain to show release of sciatic neural tension LTG Duration 04/24/21 Two Impairment Severe tone along right piriformis Fci Goal (LTG) Pt to exhibit right piriformis tone to mild-moderate to improve right hip flexibility. LTG Duration 04/24/21 One Impairment Pt does not have an appropriate home exercise program Short Term Goal (STG) Pt to be independent and complaint with an appropriate HEP STG Duration 03/27/21 Assessment Summary Assessment Pt responded good to core stabilization ther ex, good self correction form throughout. No adverse affects to added standing resisted row/ shld ext. Physical Therapy Plan Frequency and Duration Frequency of Treatment 2x/Week Duration of Treatment Two months Plan of Care Start Date 02/24/21 Plan of Care End Date 04/24/21 Therapeutic Interventions Therapeutic Interventions Aquatic Therapy,Home Exercise Program,Joint Mobilizations, Manual Therapy,Neuromuscular Re-education,Patient/Caregiver Education,Self-Care/Home Management,Soft Tissue Mobilization,Therapeutic Activities,Therapeutic Exercises Modalities Cold Pack/Ice Massage,Electric Stimulation,Hot Packs, Traction- Mechanical, Ultrasound Next Visit Focus/Plan Next Note Type Treatment Note Next Visit Plan Assess reponse to added standing core exercises last tx. Next tx assess body mechancis of his personal kettle rodriguez exercises. POC: STM, stretching, traction
--- NOTE | 2021-04-10 11:54 | PT.OTN ---
Current Diagnoses Lesion of sciatic nerve, right lower limb (04/10/21) Spondylosis, unspecified (04/10/21) Sciatica, right side (04/10/21) Lumbago with sciatica, right side (04/10/21) Physical Therapy Treatment Note PT-OP-A Visit Information Start: 02/24/21 15:21 Freq: Status: Active Protocol: Document 04/10/21 11:15 DCW (Rec: 04/10/21 11:54 DCW [id number]) Out-Patient Physical Therapy Visit Information Visit Information Visit Type Treatment Note Visit Start Time 11:15 Visit Stop Time 12:00 Total Visit Minutes 45 Visit Number 13 Number of MINE MOTOR ENGINEER Visits 0 Evaluation Information Evaluation Date 02/24/21 PT-OP-B Current Condition Start: 02/24/21 15:21 Freq: Status: Active Protocol: Document 02/24/21 14:30 DCW (Rec: 02/24/21 15:41 DCW [id number]) Current Condition History of Current Condition Onset Date ~1 year ago Current Complaints Low back pain with right-sided radicular symptoms History of Current Condition Pt is a 25 year old male presenting with a one year history of low back pain. Pt reports there was no initial injury, he was just bending down to put things away under his sink, and got severe pain in his low back. Pt notes he had to sit on the floor for ten minutes, and then eventually crawl down to his garage so his could take him to the ED. Reports his pain went away after 4-5 days, but continued to have a chronic low-level back ache. Then in December, pt once again started experiencing much more severe back pain with right-sided radicular symptoms, notes he was not able to stand or sit, only getting relief lying down, and once again this pain lasted about five days. Pt concerned both of his low-level back ache that doesn't go away, as well as this occasional sudden worsening of pain. Pt notes he did have an MRI at another hospital last year which showed multiple bulging discs and an annular tear. PT-OP-C Subjective Start: 02/24/21 15:21 Freq: Status: Active Protocol: Document 04/10/21 11:15 DCW (Rec: 04/10/21 11:54 DCW [id number]) OP-PT Subjective Patient Comments Patient Comments I still get a lot of pain if I'm sitting on the ground or squatting down, and then try to get up, it just feels like everything seizes up. PT-OP-F Manual Assessment Start: 02/24/21 15:21 Freq: Status: Active Protocol: Document 02/24/21 14:30 DCW (Rec: 02/24/21 15:48 DCW [id number]) Manual Assessments Soft Tissue Assessment Soft Tissue Mobility Assessment Severe tone R piriformis, Moderate tone R QL, R paraspinals PT-OP-K Range of Motion Start: 02/24/21 15:21 Freq: Status: Active Protocol: Document 02/24/21 14:30 DCW (Rec: 02/24/21 15:48 DCW [id number]) Lumbar Spine Range of Motion Lumbar Spine Active Degrees Testing Position Standing Flexion 70 Extension 25 Lateral Flexion Left 52 Lateral Flexion Right 50 Comments Lateral flexion measured in cm from floor to finger-tips PT-OP-L Special Tests Start: 02/24/21 15:21 Freq: Status: Active Protocol: Document 02/24/21 14:30 DCW (Rec: 02/24/21 15:48 DCW [id number]) Special Tests Lumbar Spine Special Tests DIEGO Test Results Negative Standing Flexion Test Results General pain Straight Leg Raise Test Results Positive R Slump Test Results Stretch of right nerve Manual Traction Test Results R stretching Compression Test Results Negative A-P Shearing Test Results Negative PT-OP-M Strength Start: 02/24/21 15:21 Freq: Status: Active Protocol: Document 02/24/21 14:30 DCW (Rec: 02/24/21 15:48 DCW [id number]) Hip Strength Hip Manual Muscle Testing Right Flexion (L2) 5 Normal Abduction 5 Normal Adduction 5 Normal External Rotation 5 Normal Internal Rotation 5 Normal Left Flexion (L2) 5 Normal Abduction 5 Normal Adduction 5 Normal External Rotation 5 Normal Internal Rotation 5 Normal PT-OP-Q Treatments Start: 02/24/21 15:21 Freq: Status: Active Protocol: Document 04/10/21 11:15 DCW (Rec: 04/10/21 11:54 DCW [id number]) Gym Equipment Therapeutic Ball Bridging Exercise Details Bridging /c feet on ball Ball Size/Color Red - 55 cm Body Position Supine LTR Exercise Details Low trunk rotations Ball Size/Color Red - 55 cm Body Position Supine Manual Therapy Treatment Soft Tissue Mobilization 2 Body Location R Psoas Mobilization Type Sustained Pressure Intensity/Depth Deep Body Position Supine 1 Body Location R Piriformis Mobilization Type Strumming,Sustained Pressure Intensity/Depth Moderate Body Position Sidelying PT-OP-R Modalities Start: 02/24/21 15:21 Freq: Status: Active Protocol: Document 04/10/21 11:15 DCW (Rec: 04/10/21 11:54 DCW [id number]) Spinal Traction Traction Treatment Lumbar Method Mechanical,Static Patient Position Hooklying Force Applied (Pounds) 60 Duration of Treatment (Minutes) 10 Traction Treatment Comment sustained pressure, (portable traction unit) 0/10 pain post traction PT-OP-T Assessment and Plan Start: 02/24/21 15:21 Freq: Status: Active Protocol: Document 04/10/21 11:15 DCW (Rec: 04/10/21 11:54 DCW [id number]) Physical Therapy Assessment Impairments Impairments Functional Activities, Functional Mobility,Pain,Soft Tissue Mobility,Tone Goals Three Impairment Pt experiences right neural tension in leg with SLR/ankle flexion Sales Compensation Analyst Goal (LTG) Pt to tolerate R SLR with ankle pumps without increase shooting pain to show release of sciatic neural tension LTG Duration 04/24/21 Two Impairment Severe tone along right piriformis Mcc Goal (LTG) Pt to exhibit right piriformis tone to mild-moderate to improve right hip flexibility. LTG Duration 04/24/21 One Impairment Pt does not have an appropriate home exercise program Short Term Goal (STG) Pt to be independent and complaint with an appropriate HEP STG Duration 03/27/21 Assessment Summary Assessment Pt showing good overall improvement. Recently had a follow up MRI, shows fairly substantial disc protrusions and DDD. Waiting for follow-up with his PCP. Physical Therapy Plan Frequency and Duration Frequency of Treatment 2x/Week Duration of Treatment Two months Plan of Care Start Date 02/24/21 Plan of Care End Date 04/24/21 Therapeutic Interventions Therapeutic Interventions Aquatic Therapy,Home Exercise Program,Joint Mobilizations, Manual Therapy,Neuromuscular Re-education,Patient/Caregiver Education,Self-Care/Home Management,Soft Tissue Mobilization,Therapeutic Activities,Therapeutic Exercises Modalities Cold Pack/Ice Massage,Electric Stimulation,Hot Packs, Traction- Mechanical, Ultrasound Next Visit Focus/Plan Next Note Type Treatment Note Next Visit Plan Assess reponse to added standing core exercises last tx. Next tx assess body mechancis of his personal kettle rodriguez exercises. POC: STM, stretching, traction
--- NOTE | 2021-04-17 11:54 | PT.OTN ---
Current Diagnoses Lesion of sciatic nerve, right lower limb (04/17/21) Spondylosis, unspecified (04/17/21) Sciatica, right side (04/17/21) Lumbago with sciatica, right side (04/17/21) Physical Therapy Treatment Note PT-OP-A Visit Information Start: 02/24/21 15:21 Freq: Status: Active Protocol: Document 04/17/21 11:15 DCW (Rec: 04/17/21 11:54 DCW [id number]) Out-Patient Physical Therapy Visit Information Visit Information Visit Type Treatment Note Visit Start Time 11:15 Visit Stop Time 12:00 Total Visit Minutes 45 Visit Number 14 Number of REAL ESTATE APPRAISER Visits 0 Evaluation Information Evaluation Date 02/24/21 PT-OP-B Current Condition Start: 02/24/21 15:21 Freq: Status: Active Protocol: Document 02/24/21 14:30 DCW (Rec: 02/24/21 15:41 DCW [id number]) Current Condition History of Current Condition Onset Date ~1 year ago Current Complaints Low back pain with right-sided radicular symptoms History of Current Condition Pt is a 25 year old male presenting with a one year history of low back pain. Pt reports there was no initial injury, he was just bending down to put things away under his sink, and got severe pain in his low back. Pt notes he had to sit on the floor for ten minutes, and then eventually crawl down to his garage so his could take him to the ED. Reports his pain went away after 4-5 days, but continued to have a chronic low-level back ache. Then in December, pt once again started experiencing much more severe back pain with right-sided radicular symptoms, notes he was not able to stand or sit, only getting relief lying down, and once again this pain lasted about five days. Pt concerned both of his low-level back ache that doesn't go away, as well as this occasional sudden worsening of pain. Pt notes he did have an MRI at another hospital last year which showed multiple bulging discs and an annular tear. PT-OP-C Subjective Start: 02/24/21 15:21 Freq: Status: Active Protocol: Document 04/17/21 11:15 DCW (Rec: 04/17/21 11:54 DCW [id number]) OP-PT Subjective Patient Comments Patient Comments It's achy. Not horrible, but achy. PT-OP-F Manual Assessment Start: 02/24/21 15:21 Freq: Status: Active Protocol: Document 02/24/21 14:30 DCW (Rec: 02/24/21 15:48 DCW [id number]) Manual Assessments Soft Tissue Assessment Soft Tissue Mobility Assessment Severe tone R piriformis, Moderate tone R QL, R paraspinals PT-OP-K Range of Motion Start: 02/24/21 15:21 Freq: Status: Active Protocol: Document 02/24/21 14:30 DCW (Rec: 02/24/21 15:48 DCW [id number]) Lumbar Spine Range of Motion Lumbar Spine Active Degrees Testing Position Standing Flexion 70 Extension 25 Lateral Flexion Left 52 Lateral Flexion Right 50 Comments Lateral flexion measured in cm from floor to finger-tips PT-OP-L Special Tests Start: 02/24/21 15:21 Freq: Status: Active Protocol: Document 02/24/21 14:30 DCW (Rec: 02/24/21 15:48 DCW [id number]) Special Tests Lumbar Spine Special Tests DIEGO Test Results Negative Standing Flexion Test Results General pain Straight Leg Raise Test Results Positive R Slump Test Results Stretch of right nerve Manual Traction Test Results R stretching Compression Test Results Negative A-P Shearing Test Results Negative PT-OP-M Strength Start: 02/24/21 15:21 Freq: Status: Active Protocol: Document 02/24/21 14:30 DCW (Rec: 02/24/21 15:48 DCW [id number]) Hip Strength Hip Manual Muscle Testing Right Flexion (L2) 5 Normal Abduction 5 Normal Adduction 5 Normal External Rotation 5 Normal Internal Rotation 5 Normal Left Flexion (L2) 5 Normal Abduction 5 Normal Adduction 5 Normal External Rotation 5 Normal Internal Rotation 5 Normal PT-OP-Q Treatments Start: 02/24/21 15:21 Freq: Status: Active Protocol: Document 04/17/21 11:15 DCW (Rec: 04/17/21 11:54 DCW [id number]) Gym Equipment Therapeutic Ball Bridging Exercise Details Bridging /c feet on ball Ball Size/Color Red - 55 cm Body Position Supine LTR Exercise Details Low trunk rotations Ball Size/Color Red - 55 cm Body Position Supine Therapeutic Exercises Supine Exercises 2 Supine Exercise Name Hamstring stretch Side bilateral 1 Supine Exercise Name Piriformis stretch - knee to opposite shoulder Side bilateral Manual Therapy Treatment Soft Tissue Mobilization 2 Body Location R Psoas Mobilization Type Sustained Pressure Intensity/Depth Deep Body Position Supine 1 Body Location R Piriformis Mobilization Type Strumming,Sustained Pressure Intensity/Depth Moderate Body Position Sidelying PT-OP-R Modalities Start: 02/24/21 15:21 Freq: Status: Active Protocol: Document 04/17/21 11:15 DCW (Rec: 04/17/21 11:54 DCW [id number]) Spinal Traction Traction Treatment Lumbar Method Mechanical,Static Patient Position Hooklying Force Applied (Pounds) 60 Duration of Treatment (Minutes) 10 PT-OP-T Assessment and Plan Start: 02/24/21 15:21 Freq: Status: Active Protocol: Document 04/17/21 11:15 DCW (Rec: 04/17/21 11:54 DCW [id number]) Physical Therapy Assessment Impairments Impairments Functional Activities, Functional Mobility,Pain,Soft Tissue Mobility,Tone Goals Three Impairment Pt experiences right neural tension in leg with SLR/ankle flexion Axle Inspector Goal (LTG) Pt to tolerate R SLR with ankle pumps without increase shooting pain to show release of sciatic neural tension LTG Duration 04/24/21 Two Impairment Severe tone along right piriformis Fpc Goal (LTG) Pt to exhibit right piriformis tone to mild-moderate to improve right hip flexibility. LTG Duration 04/24/21 One Impairment Pt does not have an appropriate home exercise program Short Term Goal (STG) Pt to be independent and complaint with an appropriate HEP STG Duration 03/27/21 Assessment Summary Assessment Pt showing a bit less tone overall today, ambulation and med mobility performed with minimal wincing/discomfort Physical Therapy Plan Frequency and Duration Frequency of Treatment 2x/Week Duration of Treatment Two months Plan of Care Start Date 02/24/21 Plan of Care End Date 04/24/21 Therapeutic Interventions Therapeutic Interventions Aquatic Therapy,Home Exercise Program,Joint Mobilizations, Manual Therapy,Neuromuscular Re-education,Patient/Caregiver Education,Self-Care/Home Management,Soft Tissue Mobilization,Therapeutic Activities,Therapeutic Exercises Modalities Cold Pack/Ice Massage,Electric Stimulation,Hot Packs, Traction- Mechanical, Ultrasound Next Visit Focus/Plan Next Note Type Treatment Note Next Visit Plan POC: STM, stretching, traction
--- NOTE | 2021-04-20 15:59 | PT.OTN ---
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) Spondylosis, unspecified (04/20/21) Sciatica, right side (04/20/21) Lumbago with sciatica, right side (04/20/21) Physical Therapy Treatment Note PT-OP-A Visit Information Start: 02/24/21 15:21 Freq: Status: Active Protocol: Document 04/20/21 15:15 DCW (Rec: 04/20/21 15:59 DCW [id number]) Out-Patient Physical Therapy Visit Information Visit Information Visit Type Progress Note Visit Start Time 15:15 Visit Stop Time 16:00 Total Visit Minutes 45 Visit Number 15 Number of DAIRY DEPARTMENT MANAGER Visits 0 Evaluation Information Evaluation Date 02/24/21 PT-OP-B Current Condition Start: 02/24/21 15:21 Freq: Status: Active Protocol: Document 02/24/21 14:30 DCW (Rec: 02/24/21 15:41 DCW [id number]) Current Condition History of Current Condition Onset Date ~1 year ago Current Complaints Low back pain with right-sided radicular symptoms History of Current Condition Pt is a 25 year old male presenting with a one year history of low back pain. Pt reports there was no initial injury, he was just bending down to put things away under his sink, and got severe pain in his low back. Pt notes he had to sit on the floor for ten minutes, and then eventually crawl down to his garage so his could take him to the ED. Reports his pain went away after 4-5 days, but continued to have a chronic low-level back ache. Then in December, pt once again started experiencing much more severe back pain with right-sided radicular symptoms, notes he was not able to stand or sit, only getting relief lying down, and once again this pain lasted about five days. Pt concerned both of his low-level back ache that doesn't go away, as well as this occasional sudden worsening of pain. Pt notes he did have an MRI at another hospital last year which showed multiple bulging discs and an annular tear. PT-OP-C Subjective Start: 02/24/21 15:21 Freq: Status: Active Protocol: Document 04/20/21 15:15 DCW (Rec: 04/20/21 15:59 DCW [id number]) OP-PT Subjective Patient Comments Patient Comments Pt notes he got a referral in to see a back specialist, his understanding is that they'll be discussing possible injections PT-OP-F Manual Assessment Start: 02/24/21 15:21 Freq: Status: Active Protocol: Document 04/20/21 15:15 DCW (Rec: 04/20/21 15:53 DCW [id number]) Manual Assessments Soft Tissue Assessment Soft Tissue Mobility Assessment Moderate tone R piriformis, R QL, R paraspinals PT-OP-K Range of Motion Start: 02/24/21 15:21 Freq: Status: Active Protocol: Document 04/20/21 15:15 DCW (Rec: 04/20/21 15:53 DCW [id number]) Lumbar Spine Range of Motion Lumbar Spine Active Degrees Testing Position Standing Flexion 75 Extension 30 Lateral Flexion Left 50 Lateral Flexion Right 50 Comments Lateral flexion measured in cm from floor to finger-tips PT-OP-L Special Tests Start: 02/24/21 15:21 Freq: Status: Active Protocol: Document 04/20/21 15:15 DCW (Rec: 04/20/21 15:53 DCW [id number]) Special Tests Lumbar Spine Special Tests DIEGO Test Results Negative Standing Flexion Test Results General pain Straight Leg Raise Test Results Negative Slump Test Results Hamstring stretch Manual Traction Test Results Negative Compression Test Results Negative A-P Shearing Test Results Negative PT-OP-M Strength Start: 02/24/21 15:21 Freq: Status: Active Protocol: Document 04/20/21 15:15 DCW (Rec: 04/20/21 15:53 DCW [id number]) Hip Strength Hip Manual Muscle Testing Right Flexion (L2) 5 Normal Abduction 5 Normal Adduction 5 Normal External Rotation 5 Normal Internal Rotation 5 Normal Left Flexion (L2) 5 Normal Abduction 5 Normal Adduction 5 Normal External Rotation 5 Normal Internal Rotation 5 Normal PT-OP-Q Treatments Start: 02/24/21 15:21 Freq: Status: Active Protocol: Document 04/20/21 15:15 DCW (Rec: 04/20/21 15:59 DCW [id number]) Therapeutic Exercises Supine Exercises 2 Supine Exercise Name Hamstring stretch Side bilateral 1 Supine Exercise Name Piriformis stretch - knee to opposite shoulder Side bilateral Manual Therapy Treatment Soft Tissue Mobilization 2 Body Location R Psoas Mobilization Type Sustained Pressure Intensity/Depth Deep Body Position Supine 1 Body Location R Piriformis Mobilization Type Strumming,Sustained Pressure Intensity/Depth Moderate Body Position Sidelying Other Other Manual Treatments MMT, ROM, Special testing PT-OP-R Modalities Start: 02/24/21 15:21 Freq: Status: Active Protocol: Document 04/20/21 15:15 DCW (Rec: 04/20/21 15:59 DCW [id number]) Spinal Traction Traction Treatment Lumbar Method Mechanical,Static Patient Position Hooklying Force Applied (Pounds) 60 Duration of Treatment (Minutes) 10 PT-OP-T Assessment and Plan Start: 02/24/21 15:21 Freq: Status: Active Protocol: Document 04/20/21 15:15 DCW (Rec: 04/20/21 15:59 DCW [id number]) Physical Therapy Assessment Impairments Impairments Functional Activities, Functional Mobility,Pain,Soft Tissue Mobility,Tone Goals Three Impairment Pt experiences right neural tension in leg with SLR/ankle flexion Longterm Goal (LTG) Pt to tolerate R SLR with ankle pumps without increase shooting pain to show release of sciatic neural tension LTG Duration 04/24/21 Two Impairment Severe tone along right piriformis Operator Receptionist Goal (LTG) Pt to exhibit right piriformis tone to mild-moderate to improve right hip flexibility. LTG Duration 04/24/21 One Impairment Pt does not have an appropriate home exercise program Short Term Goal (STG) Pt to be independent and complaint with an appropriate HEP STG Duration 03/27/21 Assessment Summary Assessment Pt made some mild progress since initial evaluation, walking and mobility has improved, but overall pain levels have remained. Pt feels that as soon as he gets a home traction unit, he should be able to largely perform most of his PT independently at home. Will likely be discharging soon, but would like to keep current chart open for a bit longer in case his plans change after visiting with back specialist. Physical Therapy Plan Frequency and Duration Frequency of Treatment Every Other Week Duration of Treatment One month Plan of Care Start Date 04/20/21 Plan of Care End Date 05/21/21 Therapeutic Interventions Therapeutic Interventions Aquatic Therapy,Home Exercise Program,Joint Mobilizations, Manual Therapy,Neuromuscular Re-education,Patient/Caregiver Education,Self-Care/Home Management,Soft Tissue Mobilization,Therapeutic Activities,Therapeutic Exercises Modalities Cold Pack/Ice Massage,Electric Stimulation,Hot Packs, Traction- Mechanical, Ultrasound Next Visit Focus/Plan Next Note Type Treatment Note Next Visit Plan HEP, discuss POC following visit with back specialist
--- NOTE | 2021-11-16 11:36 | PT.OPDS ---
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 Email: [email or web address] Visit Number Visit Number 15 Discharge Summary PT-OP-B Current Condition Start: 02/24/21 15:21 Freq: Status: Active Protocol: Document 02/24/21 14:30 DCW (Rec: 02/24/21 15:41 DCW [id number]) Current Condition History of Current Condition Onset Date ~1 year ago Current Complaints Low back pain with right-sided radicular symptoms History of Current Condition Pt is a 25 year old male presenting with a one year history of low back pain. Pt reports there was no initial injury, he was just bending down to put things away under his sink, and got severe pain in his low back. Pt notes he had to sit on the floor for ten minutes, and then eventually crawl down to his garage so his could take him to the ED. Reports his pain went away after 4-5 days, but continued to have a chronic low-level back ache. Then in December, pt once again started experiencing much more severe back pain with right-sided radicular symptoms, notes he was not able to stand or sit, only getting relief lying down, and once again this pain lasted about five days. Pt concerned both of his low-level back ache that doesn't go away, as well as this occasional sudden worsening of pain. Pt notes he did have an MRI at another hospital last year which showed multiple bulging discs and an annular tear. PT-OP-C Subjective Start: 02/24/21 15:21 Freq: Status: Active Protocol: Document 04/20/21 15:15 DCW (Rec: 04/20/21 15:59 DCW [id number]) OP-PT Subjective Patient Comments Patient Comments Pt notes he got a referral in to see a back specialist, his understanding is that they'll be discussing possible injections PT-OP-F Manual Assessment Start: 02/24/21 15:21 Freq: Status: Active Protocol: Document 04/20/21 15:15 DCW (Rec: 04/20/21 15:53 DCW [id number]) Manual Assessments Soft Tissue Assessment Soft Tissue Mobility Assessment Moderate tone R piriformis, R QL, R paraspinals PT-OP-K Range of Motion Start: 02/24/21 15:21 Freq: Status: Active Protocol: Document 04/20/21 15:15 DCW (Rec: 04/20/21 15:53 DCW [id number]) Lumbar Spine Range of Motion Lumbar Spine Active Degrees Testing Position Standing Flexion 75 Extension 30 Lateral Flexion Left 50 Lateral Flexion Right 50 Comments Lateral flexion measured in cm from floor to finger-tips PT-OP-L Special Tests Start: 02/24/21 15:21 Freq: Status: Active Protocol: Document 04/20/21 15:15 DCW (Rec: 04/20/21 15:53 DCW [id number]) Special Tests Lumbar Spine Special Tests DIEGO Test Results Negative Standing Flexion Test Results General pain Straight Leg Raise Test Results Negative Slump Test Results Hamstring stretch Manual Traction Test Results Negative Compression Test Results Negative A-P Shearing Test Results Negative PT-OP-M Strength Start: 02/24/21 15:21 Freq: Status: Active Protocol: Document 04/20/21 15:15 DCW (Rec: 04/20/21 15:53 DCW [id number]) Hip Strength Hip Manual Muscle Testing Right Flexion (L2) 5 Normal Abduction 5 Normal Adduction 5 Normal External Rotation 5 Normal Internal Rotation 5 Normal Left Flexion (L2) 5 Normal Abduction 5 Normal Adduction 5 Normal External Rotation 5 Normal Internal Rotation 5 Normal PT-OP-T Assessment and Plan Start: 02/24/21 15:21 Freq: Status: Active Protocol: Document 11/16/21 11:35 DCW (Rec: 11/16/21 11:36 DCW [id number]) Physical Therapy Assessment Assessment Summary Assessment Pt has not been seen in six months. At time of his last visit, he requested keeping his chart open just in case he felt he needed more appointments. No follow-up visits have been scheduled. Will discharge at this time. Pt will require a new referral in order to return to skilled therapy. Physical Therapy Plan Discharge Physical Therapy Discharge Reasons No Longer Attending PT
== END 2021-11-17 12:01 | disposition home or self-care (01) ==
LOC: PHYS 15:15
PROVIDERS: Family Provider Family Medicine; PCP Family Medicine; Referring Provider Family Medicine; Visit Provider Family Medicine
DX: M47.9 Spondylosis, unspecified (principal); M54.41 Lumbago with sciatica, right side; G57.01 Lesion of sciatic nerve, right lower limb
CPT/HCPCS: 97012; 97110; 97140; 97161

== ENCOUNTER → 2021-06-03 15:44 | Outpatient (CLI) | payer OTHER, SELFPAY ==
--- NOTE | 2021-06-03 15:45 | DI.RAD.S_ITS ---
PROCEDURE: XR LUMBAR SPINE MIN 4V INDICATIONS: L4 pars defect TECHNIQUE: 5 views of the lumbar spine were acquired, including bilateral oblique views. COMPARISON: [facility], CR, XR LUMBAR SPINE 2-3V, 01/14/2021, 12:40. [facility], MR, MR LUMBAR SPINE WO CON, 04/02/2021, 15:14. FINDINGS: Bones: 5 nonrib-bearing vertebrae are present. There is mild, grade 1 anterolisthesis of L4 on L5 with flexion and neutral positioning which partially reduces with extension. No vertebral body compression fractures. No suspicious bony lesions. Bilateral L4-L5 pars interarticularis defects are present, as before. Soft tissues: Overlying bowel gas pattern is normal. No suspicious soft tissue calcifications. IMPRESSION: 1. Grade 1 isthmic spondylolisthesis at L4-L5 with mild instability. 2. No acute fracture. No osseous lesion. If symptoms and/or clinical suspicion for pathology persist, further assessment with repeat, or advanced imaging (e.g., CT, MRI, or bone scan) may be helpful for further assessment. Dictated by: Sherri Mcleod M.D. on 06/03/2021 at 16:22 Approved by: Sherri Mcleod M.D. on 06/03/2021 at 16:39
== END ==
PROVIDERS: Family Provider Family Medicine; PCP Family Medicine; Referring Provider Physical Medicine & Rehabilitation; Visit Provider Physical Medicine & Rehabilitation
DX: M43.16 Spondylolisthesis, lumbar region (principal); M47.816 Spondylosis without myelopathy or radiculopathy, lumbar region; M51.27 Other intervertebral disc displacement, lumbosacral region
CPT/HCPCS: 72110; 99214

== ENCOUNTER → 2021-07-20 09:50 | Outpatient (CLI) | payer OTHER, SELFPAY ==
[2021-07-20 11:48] LABS: COVID19 -Nasal RAPID Negative (Negative)
== END ==
PROVIDERS: Family Provider Family Medicine; PCP Family Medicine; Visit Provider Physical Medicine & Rehabilitation
DX: Z20.822 Contact with and (suspected) exposure to COVID-19 (principal)
CPT/HCPCS: 87635; C9803

== ENCOUNTER 2021-07-21 12:48 | Outpatient (CLI) | payer OTHER, SELFPAY ==
[2021-07-21] VITALS (9 sets, daily range): BP systolic 127–145; BP diastolic 63–85; PULSE 75–98; RESP 12–18; TEMP 36.8; O2SAT 96–100
--- NOTE | 2021-07-21 | DI.RAD.S_ITS ---
PROCEDURE: PAIN L/S TRANSFORAMINAL INJECT INDICATIONS: SPONDYLOSIS COMPARISON: [facility], CR, XR LUMBAR SPINE MIN 4V, 06/03/2021, 15:35. FINDINGS: Fluoroscopic spot filming was performed to verify placement of a spinal needle at the L5-S1 level, as labeled on the films. Appropriate location of the needle tip was confirmed by injection of iodinated contrast. IMPRESSION: No significant intraprocedural abnormality. Dictated by: Alex Meraz M.D. on 07/21/2021 at 14:06 Approved by: Alex Meraz M.D. on 07/21/2021 at 14:07
[2021-07-21] MEDS: MIDAZOLAM 2 MG/2 ML VIAL (14:00)
[2021-07-21] MEDS: IOPAMIDOL 15 ML VIAL 3 ML INJ (14:04)
[2021-07-21] MEDS: BETAMETHASONE 30 MG/5 ML MDV 6 MG INJ (14:05)
[2021-07-21] MEDS: DEXAMETHASONE 10 MG/ML VIAL 20 MG INJ (14:05)
[2021-07-21] MEDS: BUPIVACAINE 0.25% (PF) VIAL 2 ML INJ (14:05)
--- NOTE | 2021-07-21 14:15 | P.PCN_ITS ---
Date/Time/Diagnoses Date of procedure: 07/21/21 Time of procedure: 14:15 Pre-procedure diagnosis: FORAMINAL STENOSIS WITH LE SYMPTOMS Post-procedure diagnosis: same Procedure Notes Procedure: 1. FLUOROSCOPICALLY GUIDED CONTRAST CONTROLLED TRANSFORAMINAL EPIDURAL STEROID INJECTION - RIGHT L5/S1 TFESI Indications: Kobe is referred by Dr. Paez for treatment of Foraminal Stenosis with Right LE Symptoms Physician: Quoc Wolfe Total Fluoroscopy time (seconds): 9 Total sedation minutes: 11 Complications: none Procedure in detail & Post-procedure care: FINDINGS Foraminal Nerve Root Compression secondary to disc disease and facet hypertrophy DESCRIPTION OF PROCEDURE Following review of allergy and review of potential side effects and complications, including, but not necessarily limited to, infection, allergic r eaction, local tissue breakdown, stroke, temporary or permanent nerve injury, paralysis, and possible , the patient indicated that the patient understood and agreed to proceed. An informed consent document was signed by the patient, witnessed by a nurse, and placed in the patient's chart. Additionally, other treatment options including medications, modalities, and physical therapy were reviewed with the patient. After review of previous anaesthesic history and IV conscious sedation the patient was deemed safe to proceed with today?s procedure with IV conscious sedation as ASA class II designation. Safety time-out was performed to confirm patient ID, procedure to be performed and site of procedure. IV sedation was accomplished with a combination of 2mg of Versed was administered by the RN after DO order, titrated to patient comfort during the course of the procedure while the patient remained responsive to all verbal commands In the prone position following sterile prep and drape of the lumbar region, the right L5/S1 posterior neuroforamen was identified fluoroscopically. The skin was anesthetized via a 25-gauge 1.5-inch needle with 1% lidocaine solution. At this point, a 25-gauge 3.5-inch spinal needle was atraumatically introduced and advanced under fluoroscopic guidance through the posterior right L5/S1 neuroforamen to approximately the anterior aspect of the canal. Depth was confirmed on lateral view. Following negative aspiration, injection of approximately 1.5cc of Isovue 200 under live fluoroscopy in the AP view confirmed excellent flow along the nerve root, into the epidural space without vascular or intrathecal uptake observed Radiological data, including multiple fluoroscopic views of the lumbosacral spine, reveal a spinal needle at the right L5/S1 posterior neuroforamen. Subsequent views show flow of contrast material flowing superiorly and inferiorly along the nerve root confirming epidural flow. Subsequently, a test dose of 1.5 cc of 1% lidocaine solution was administered and patient was observed for two minutes for signs or symptoms of complications, including abdominal pain, shortness of breath, bilateral upper or lower extre mity weakness, nausea and vomiting, prior to steroid injection. At this point, a total of 3cc or 20mg of dexamethasone and 6mg of betamethasone was injected without incident. The procedure tolerated the procedure well without signs or symptoms of complications prior to transfer to the recovery area continued monitoring without incident. The patient was then transferred to the recovery area where they were observed for an appropriate time after the injection. The patient reported a VAS score of 7 prior to the procedure and a post- procedure VAS of 0. POST OP INSTRUCTIONS The patient was provided a Pain Log to continue to record their response to the target-specific procedure prior to follow-up visit with their referring physician. Additionally, specific post-injection care instructions and a contact number to our office were provided if concerns arise regarding possible complications associated with the procedure are suspected.
== END 2021-07-21 14:30 | disposition home or self-care (01) ==
LOC: RAD 12:50
PROVIDERS: Family Provider Family Medicine; PCP Family Medicine; Referring Provider Physical Medicine & Rehabilitation; Visit Provider Physical Medicine & Rehabilitation
DX: M48.07 Spinal stenosis, lumbosacral region (principal); M51.17 Intervertebral disc disorders with radiculopathy, lumbosacral region
CPT/HCPCS: 64483; 99152; J0702; J1100; J2250

== ENCOUNTER → 2021-09-30 07:17 | Outpatient (CLI) | payer OTHER, SELFPAY ==
--- NOTE | 2021-09-30 07:19 | DI.US.S_ITS ---
PROCEDURE: US SCROTUM INDICATIONS: LEFT SCROTAL PAIN 18 MONTHS POST VASECTOMY TECHNIQUE: Real-time scanning was performed of the scrotum and testicles, with image documentation. Color and pulse Doppler interrogation was performed of both testicles. COMPARISON: None. FINDINGS: Right: Testicle is normal in size at 2.3 x 2.9 x 4.6 cm, and homogeneous in echotexture. Epididymis is heterogenous in echogenicity with increased blood flow. No hydrocele or varicoceles. Overlying scrotal skin is normal in thickness. Left: Testicle is normal in size at 2.3 x 2.4 x 4.1 cm, and homogeneous in echotexture. Epididymis is heterogenous in echogenicity with increased blood flow. No hydrocele or varicoceles. Overlying scrotal skin is normal in thickness. Doppler: Symmetric and mildly increased blood flow in both epididymi and testicles, nonspecific. IMPRESSION: Heterogeneous echotexture in both epididymi with mildly increased blood flow in both testicles and epididymi. Findings suggest epididymo-orchitis. Dictated by: Nicola Dye M.D. on 09/30/2021 at 13:56 Approved by: Nicola Dye M.D. on 09/30/2021 at 13:58
== END ==
PROVIDERS: Family Provider Family Medicine; PCP Family Medicine; Referring Provider Student in an Organized Health Care Education/Training Program; Visit Provider Student in an Organized Health Care Education/Training Program
DX: N50.82 Scrotal pain (principal)
CPT/HCPCS: 76870; 93975

== ENCOUNTER 2021-12-01 10:05 | Outpatient (CLI) | payer OTHER, SELFPAY ==
[2021-12-01] VITALS (8 sets, daily range): BP systolic 110–137; BP diastolic 66–89; PULSE 67–89; RESP 12–23; TEMP 36.1; O2SAT 98–100
--- NOTE | 2021-12-01 10:06 | DI.RAD.S_ITS ---
PROCEDURE: PAIN L INTERLAMINAR/CAUDAL INJ INDICATIONS: SPONDYLOSIS COMPARISON: [facility], XA, PAIN L/S TRANSFORAMINAL INJECT, 07/21/2021, 14:04. [facility], CR, XR LUMBAR SPINE MIN 4V, 06/03/2021, 15:35. FINDINGS: Fluoroscopic spot filming was performed to verify placement of a spinal needle at the L5-S1 level, as labeled on the films. Appropriate location of the needle tip was confirmed by injection of iodinated contrast. IMPRESSION: No significant intraprocedural abnormality. Dictated by: Alex Meraz M.D. on 12/01/2021 at 11:17 Approved by: Alex Meraz M.D. on 12/01/2021 at 11:17
[2021-12-01] MEDS: MIDAZOLAM 2 MG/2 ML VIAL IV (11:24)
[2021-12-01] MEDS: IOPAMIDOL 15 ML VIAL 3 ML INJ (11:29)
[2021-12-01] MEDS: BUPIVACAINE 0.25% (PF) VIAL 2 ML INJ (11:30)
[2021-12-01] MEDS: DEXAMETHASONE 10 MG/ML VIAL 20 MG INJ (11:30)
[2021-12-01] MEDS: BETAMETHASONE 30 MG/5 ML MDV 6 MG INJ (11:30)
--- NOTE | 2021-12-01 11:36 | PM.PROC.IR.1 ---
Date/Time/Diagnoses Date of procedure: 12/01/21 Time of procedure: 11:36 Pre-procedure diagnosis: 1. HNP WITH RADICULAR FEATURES, 2. MULTILEVEL CENTRAL STENOSIS, Post-procedure diagnosis: same Procedure Notes Procedure: 1. FLUOROSCOPICALLY GUIDED CONTRAST CONTROLLED INTERLAMINAR EPIDURAL STEROID INJECTION - PARA RIGHT L5/S1 Indications: Kobe is referred by Dr. Paez for treatment of HNP with Right L5 LE symptoms. Physician: Quoc Wolfe Total Fluoroscopy time (seconds): 4 Total sedation minutes: 9 Complications: none Procedure in detail & Post-procedure care: FINDINGS Multilevel Central Spinal Stenosis with Nerve Root Compression DESCRIPTION OF PROCEDURE Fluoroscopically guided, contrast-controlled L5/S1 translaminar epidural steroid injection. Following review of allergy and review of potential side effects and complications, including, but not necessarily limited to, infection, allergic reaction, local tissue breakdown, temporary as well as permanent nerve injury, paralysis, stroke and possible , the patient indicated that the patient understood and agreed to proceed. An informed consent document was signed by the patient, witnessed by a nurse, and placed in the patient's chart. Additionally, other treatment options including modalities, medications, and physical therapy were reviewed with the patient. After review of previous anaesthesic history and IV conscious sedation the patient was deemed safe to proceed with today?s procedure with IV conscious sedation as ASA class II designation. Safety time-out was performed to confirm patient ID, procedure to be performed and site of procedure. IV sedation was accomplished with a combination of 2mg of Versed administered by the RN after DO order, titrated to patient comfort during the course of the procedure while the patient remained responsive to all verbal commands. In the prone position, following sterile prep and drape of the lumbar region, the L5/S1 translaminar space was identified fluoroscopically. The skin was anesthetized via a 25-gauge, 1.5-inch needle with 1% lidocaine solution. At this point, a 22-gauge short bevel spinal needle was atraumatically introduced and advanced under fluoroscopic guidance into the region of the L5/S1 translaminar space. Depth was confirmed on lateral view. Radiological data, including multiple fluoroscopic views of the lumbar spine, reveal a spinal needle at the L5/S1 translaminar space. Lateral views then show placement of the needle in the epidural space. Subsequent views show contrast material flowing superiorly and inferiorly in the epidural space. No vascular or intrathecal uptake is observed. At this point, using loss of resistance technique with saline and air, the epidural space was entered. This was confirmed following negative aspiration with injection of approximately 1.5cc of Isovue 200, showing excellent epidural flow without vascular or intrathecal uptake. At this point, 1 cc of 1% lidocaine solution combined with 3cc or 20mg of dexamethasone and 6mg of betamethasone was injected without incident. The patent tolerated the procedure without signs of symptoms of complications prior to transfer to the recovery area for further monitoring. The patient was then transferred to the recovery area where they were observed for an appropriate period of time after the injection. The patient reported a VAS score of 6 prior to the procedure and a post-procedure VAS of 0. POST OP INSTRUCTIONS The patient was provided a Pain Log to continue to record their response to the target-specific procedure prior to follow-up visit with their referring physician. Additionally, specific post-injection care instructions and a contact number to our office were provided if concerns arise regarding possible complications associated with the procedure are suspected.
== END 2021-12-01 11:59 | disposition home or self-care (01) ==
PROVIDERS: Family Provider Family Medicine; PCP Family Medicine; Referring Provider Physical Medicine & Rehabilitation; Visit Provider Physical Medicine & Rehabilitation
DX: M51.17 Intervertebral disc disorders with radiculopathy, lumbosacral region (principal); M48.07 Spinal stenosis, lumbosacral region
CPT/HCPCS: 62323; J0702; J1100; J2250; J3490

== ENCOUNTER 2022-04-06 12:44 | Outpatient (CLI) | payer OTHER, SELFPAY ==
[2022-04-06] VITALS (8 sets, daily range): BP systolic 119–138; BP diastolic 71–87; PULSE 67–77; RESP 15–21; TEMP 36.6; O2SAT 97–100
--- NOTE | 2022-04-06 12:45 | DI.RAD.S_ITS ---
PROCEDURE: PAIN L/SI FACET INJ/BLK 1STL INDICATIONS: SPONDYLOSIS COMPARISON: None. FINDINGS: Fluoroscopic spot filming was performed to verify placement of spinal needles at the right L4-L5 and L5-S1 facet joints level(s), as labeled on the films. Appropriate location(s) of the needle tip(s) was confirmed by injection of iodinated contrast. IMPRESSION: Access needles at the right L4-L5 and L5-S1 facet joints for facet joint injection. Dictated by: Teresa Murrell MD, PhD on 04/06/2022 at 14:22 Approved by: Teresa Murrell MD, PhD on 04/06/2022 at 14:23
[2022-04-06] MEDS: MIDAZOLAM 2 MG/2 ML VIAL IV (13:53)
[2022-04-06] MEDS: IOPAMIDOL 15 ML VIAL 3 ML INJ (13:56)
[2022-04-06] MEDS: BUPIVACAINE 0.5% (PF) 10 ML VIAL 5 ML SUBCUT (13:57)
[2022-04-06] MEDS: BETAMETHASONE 30 MG/5 ML MDV 6 MG INJ (13:58)
--- NOTE | 2022-04-06 15:57 | P.PCN_ITS ---
Date/Time/Diagnoses Date of procedure: 04/06/22 Time of procedure: 15:57 Pre-procedure diagnosis: 1. FACET ARTHROPATHY, 2. AXIAL LBP, 3. MULTILEVEL DDD Post-procedure diagnosis: same Procedure Notes Procedure: 1. FLUOROSCOPICALLY GUIDED CONTRAST CONTROLLED FACET JOINT INJECTIONS RIGHT L4/5, L5/S1 Indications: Kobe is referred by Dr. Paez for treatment of Axial LBP Physician: Quoc Wolfe Total Fluoroscopy time (seconds): 6 Total sedation minutes: 9 Complications: none Procedure in detail & Post-procedure care: FINDINGS Multilevel Facet Arthropathy with Clinically significant axial LBP DESCRIPTION OF PROCEDURE Fluoroscopically guided, contrast-controlled right L4/5, L5/S1 facet joint injections. Following review of allergy and review of potential side effects and complications, including, but not necessarily limited to, infection, allergic reaction, local tissue breakdown, stroke, temporary or permanent nerve injury, paralysis, and possible , the patient indicated that the patient understood and agreed to proceed. An informed consent document was signed by the patient, witnessed by a nurse, and placed in the patient's chart. Additionally, other treatment options including medications, modalities, and physical therapy were reviewed with the patient. After review of previous anaesthesic history and IV conscious sedation the patient was deemed safe to proceed with today?s procedure with IV conscious sedation as ASA class II designation. Safety time-out was performed to confirm patient ID, procedure to be performed and site of procedure. IV sedation was accomplished with a combination of 2mg of Versed was administered by the RN after DO order, titrated to patient comfort during the course of the procedure while the patient remained responsive to all verbal commands. In the prone position, following sterile prep and drape of the lumbar region, the posterior aspect of the right L4/5, L5/S1 facet joints were identified fluoroscopically. The skin was anesthetized via a 25-gauge 1.5-inch needle with 1% lidocaine solution into the corresponding facet joints. At this point, a 22- gauge 3.5-inch spinal needle was atraumatically introduced and advanced under fluoroscopic guidance into the corresponding facet joints. Following negative aspiration, injections of approximately 0.2-cc of Isovue 200 confirmed interarticular placement without vascular uptake. Radiological data, including multiple fluoroscopic views of the lumbosacral spine, reveal a spinal needle at the right L4/5, L5/S1 facet joints. Subsequent views show flow of contrast material both superiorly and inferiorly within the joint space without vascular or intrathecal uptake. At this point, a total of 0.5cc including a mixture of 0.25cc Marcaine and 0.25cc betamethasone was injected without complication into each of the corresponding facet joints. The procedure tolerated the procedure well without signs or symptoms of complications prior to transfer to the recovery area continued monitoring without incident. The patient was then transferred to the recovery area where they were observed for an appropriate period of time after the injection. The patient reported a VAS score of 7 prior to the procedure and a post-procedure VAS of 0. POST OP INSTRUCTIONS The patient was provided a Pain Log to continue to record their response to the target-specific procedure prior to follow-up visit with their referring physician. Additionally, specific post-injection care instructions and a contact number to our office were provided if concerns arise regarding possible complications associated with the procedure are suspected.
== END 2022-04-06 14:24 | disposition home or self-care (01) ==
LOC: RAD 12:45
PROVIDERS: Family Provider Family Medicine; PCP Family Medicine; Referring Provider Physical Medicine & Rehabilitation; Visit Provider Physical Medicine & Rehabilitation
DX: M47.816 Spondylosis without myelopathy or radiculopathy, lumbar region (principal); M47.817 Spondylosis without myelopathy or radiculopathy, lumbosacral region; M51.36 Other intervertebral disc degeneration, lumbar region; M51.37 Other intervertebral disc degeneration, lumbosacral region
CPT/HCPCS: 64493; 64494; J0702; J2250

== ENCOUNTER → 2023-01-07 11:55 | Outpatient (CLI) | payer OTHER, SELFPAY | PROVIDERS: Family Provider Family Medicine; PCP Family Medicine; Referring Provider Family Medicine; Visit Provider Family Medicine | DX: Z23 Encounter for immunization (principal) | CPT/HCPCS: 90471; 90686 ==

== ENCOUNTER → 2023-05-19 13:36 | Outpatient (CLI) | payer OTHER, SELFPAY | PROVIDERS: Family Provider Family Medicine; PCP Family Medicine; Visit Provider Physician Assistant | DX: J02.9 Acute pharyngitis, unspecified (principal) | CPT/HCPCS: 87070; 87077; 87147 ==

== ENCOUNTER 2023-07-04 22:26 | Emergency (ER) | payer OTHER, SELFPAY ==
[2023-07-04 22:34] VITALS: BP 134/76; PULSE 114; RESP 18; TEMP 36.1; O2SAT 99; BMI 32.3
[2023-07-04 22:39] VITALS: PULSE 108; O2SAT 96
[2023-07-04 22:40] VITALS: BP 126/81; PULSE 103; O2SAT 96
--- NOTE | 2023-07-04 22:59 | ED_ITS ---
HPI - Nausea/Vomiting/Diarrhea General Chief complaint: Nausea/Vomiting/Diarrhea Stated complaint: D/V Time Seen by Provider: 07/04/23 22:41 Source: patient Mode of arrival: Ambulatory History of Present Illness HPI Narrative: 28-year-old male presents for 2 days of nausea, vomiting, watery diarrhea and fatigue. Reports associated body aches, took negative home COVID test. Vomiting has resolved today, however patient states that he having diarrhea hourly and is barely able to do anything due to how frequently he was to use the restroom. Has felt dizzy when standing up. Patient states that his prompted him to come in for evaluation due to duration of symptoms. Patient denies abdominal pain, fevers. Related Data Home Medications Medication Instructions Recorded Confirmed propranolol 10 mg tablet 10 mg PO TID PRN 11/24/20 05/19/23 valacyclovir 1 gram tablet 1,000 mg PO DAILY PRN cold sores 06/03/21 05/19/23 Previous Rx's Medication Instructions Recorded sumatriptan succinate 25 mg tablet See Rx Instructions PO .COMPLEX 03/09/22 (Imitrex) #30 tabs citalopram 20 mg tablet 20 mg PO DAILY #90 tabs 05/17/23 amoxicillin 500 mg capsule 500 mg PO BID #20 caps 05/19/23 lorazepam 1 mg tablet 1 mg PO TID PRN panic attack #30 05/19/23 tabs ondansetron 4 mg disintegrating 4 mg PO Q8H PRN nausea and 05/19/23 tablet vomiting #30 tabs Allergies Allergy/AdvReac Type Severity Reaction Status Date / Time No Known Drug Allergies Allergy Verified 05/19/23 13:40 Review of Systems Review of Systems Narrative: See HPI Patient History Medical History Herniated nucleus pulposus, L5-S1, right Facet arthropathy, lumbar Hemangioma of spine 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 Anxiety (~2019) Migraines Headache Exertional compartment syndrome (~2016) Shoulder pain (~2016) Foot pain (~2016) Chronic back pain (~2017) Surgical History Hx of vasectomy Anesthesia [place] teeth removed (~2013) History of left knee surgery (~2010) Family History Father Hypertension Asthma Mother Mental health problem Low blood pressure Hypothyroidism Horners syndrome Celiac disease Brother Asthma Grandfather Non-alcoholic cirrhosis BPH (benign prostatic hyperplasia) Gilbert's syndrome Grandmother Breast cancer Diabetes mellitus Hyperlipidemia Mental health problem Hypothyroidism Kidney disease Grandfather Skin cancer Grandmother Diabetes mellitus Asthma History of heart attack Social History Smoking Status: Never smoker Smoking Status: Never smoker alcohol intake frequency: holidays/special occasions only Substance Use Type: does not use Exam Initial Vital Signs Initial Vital Signs: Vital Signs Temperature 97 F L 07/04/23 22:34 Pulse Rate 114 H 07/04/23 22:34 Respiratory Rate 18 07/04/23 22:34 Blood Pressure 134/76 07/04/23 22:34 Pulse Oximetry 99 07/04/23 22:34 Oxygen Delivery Method Room Air 07/04/23 22:34 Const: Awake, alert, no acute distress, nontoxic appearing Cardiac: Tachycardia, regular rhythm RESP: unlabored, clear bilaterally, no wheezing GI: Soft, nontender, nondistended, no rebound, no guarding Skin: Warm, Dry, intact, no rashes Neuro: AO x3, CN II-XII grossly intact, moves all extremities Course Orders Ordered: ED Orders 07/04/23 23:00 Respiratory Panel (Film Array) Stat 07/04/23 23:05 CBC Auto Diff [Complete Blood Count AUTO DIFF] Stat CMP [Comprehensive Metabolic Panel] Stat Discontinued Medications Sodium Chloride (Normal Saline 0.9%) 1,000 mls @ 1,000 mls/hr IV BOLUS ONE Stop: 07/04/23 23:44 Last Infusion: 07/04/23 23:53 Dose: Infused Documented By: Admin: 07/04/23 23:20 Dose: 1,000 mls/hr Documented By: Sodium Chloride (Normal Saline 0.9%) 1,000 mls @ 1,000 mls/hr IV BOLUS ONE Stop: 07/05/23 01:41 Last Admin: 07/05/23 00:48 Dose: 1,000 mls/hr Documented By: Ondansetron HCl (Ondansetron 4 Mg/2 Ml Inj) 4 mg IV NOW ONE Stop: 07/04/23 22:46 Last Admin: 07/04/23 23:20 Dose: 4 mg Documented By: AB Vital Signs Vital signs: Vital Signs - 8 hr 07/04/23 22:34 07/04/23 22:39 07/04/23 22:40 Temperature 97 F L Pulse Rate 114 H 108 H Respiratory Rate 18 Blood Pressure 134/76 126/81 Pulse Oximetry 99 96 Oxygen Delivery Method Room Air 07/04/23 22:40 07/04/23 23:00 07/04/23 23:00 Temperature Pulse Rate 103 H 100 H Respiratory Rate Blood Pressure 135/79 Pulse Oximetry 96 98 Oxygen Delivery Method 07/04/23 23:30 07/04/23 23:30 07/05/23 00:00 Temperature Pulse Rate 89 Respiratory Rate Blood Pressure 132/72 129/67 Pulse Oximetry 97 Oxygen Delivery Method 07/05/23 00:00 07/05/23 00:30 07/05/23 00:30 Temperature Pulse Rate 84 85 Respiratory Rate Blood Pressure 119/69 Pulse Oximetry 95 96 Oxygen Delivery Method 07/05/23 00:48 07/05/23 00:48 07/05/23 01:00 Temperature Pulse Rate 95 H Respiratory Rate Blood Pressure 111/75 122/75 Pulse Oximetry 96 Oxygen Delivery Method 07/05/23 01:00 07/05/23 01:30 07/05/23 01:30 Temperature Pulse Rate 88 92 H Respiratory Rate Blood Pressure 118/66 Pulse Oximetry 96 97 Oxygen Delivery Method MDM - Nausea/Vomiting/Diarrhea Differential Diagnosis Differential diagnosis: Likely traveler's diarrhea, food poisoning and gastroenteritis Lab Data 07/04/23 23:05 07/04/23 23:05 Labs: Lab Results 07/04/23 07/04/23 Range/Units 23:00 23:05 WBC 12.2 H (4.5-11.0) X10^3/uL RBC 5.13 (4.5-5.9) X10^6/uL Hgb 15.5 (13.5-17.5) g/dL Hct 44.3 (41-53) % MCV 86.2 (80-100) fL MCH 30.3 (26-34) PG MCHC 35.1 (30-36) % RDW 12.7 (11.6-14.8) % Plt Count 221 (150-400) X10^3/uL Neut % (Auto) 75.1 H (50-75) % Lymph % (Auto) 10.6 L (25-40) % [place] % (Auto) 12.7 (3-14) % Eos % (Auto) 1.1 L (2-4) % Baso % (Auto) 0.5 (0-2) % Neut # (Auto) 9200 H (3344-1301) /uL Lymph # (Auto) 1300 (4475-8202) /uL [place] # (Auto) 1600 H (0-900) /uL Eos # (Auto) 100 (0-450) /uL Baso # (Auto) 100 (0-100) /uL Sodium 135 L (137-145) mmol/L Potassium 3.9 (3.4-5.1) mmol/L Chloride 104 (98-107) mmol/L Carbon Dioxide 26 (22-32) mmol/L BUN 15 (9-20) mg/dL Creatinine 1.13 (0.66-1.25) mg/dL Estimated GFR > 60 (>60) mL/min BUN/Creatinine Ratio 13.3 (6-22) Glucose 109 H (70-100) mg/dL Calcium 9.2 (8.4-10.2) mg/dL Total Bilirubin 0.9 (0.2-1.3) mg/dL AST 23 (17-59) IU/L ALT 43 (<50) IU/L Alkaline Phosphatase 62 (38-126) U/L Total Protein 7.6 (6.3-8.2) g/dL Albumin 4.4 (3.5-5.0) g/dL Globulin 3.2 (1.7-4.1) g/dL Albumin/Globulin Ratio 1.4 (1.0-2.8) Chlamy pneumoniae PCR Not detected (Not Detect) Adenovirus (PCR) Not detected (Not Detect) B.parapertussis DNA PCR Not detected (Not Detecte) Coronavirus OC43 (PCR) Not detected (Not Detect) Coronavirus HKU1 (PCR) Not detected (Not Detect) Coronavirus 229E (PCR) Not detected (Not Detect) SARS-CoV-2 (PCR) Not detected (Not Detecte) Coronavirus NL63 (PCR) Not detected (Not Detect) Human Metapneumovir PCR Not detected (Not Detect) Influenza Type A (PCR) Not detected (Not Detect) Influenza Type B (PCR) Not detected (Not Detect) M. pneumoniae (PCR) Not detected (Not Detect) Parainfluenza 1 (PCR) Not detected (Not Detect) Parainfluenza 2 (PCR) Not detected (Not Detect) Parainfluenza 3 (PCR) Not detected (Not Detect) Parainfluenza 4 (PCR) Not detected (Not Detect) RSV (PCR) Not detected (Not Detect) Entero/Rhino (PCR) Not detected (Not Detect) MDM Narrative Medical decision making narrative: Nontoxic patient with several days of multiple episodes of diarrhea. Patient denies recent travel, strange food, antibiotics, unusual water exposure. Abdomen is soft, no reproducible tenderness to palpation, based on exam and symptoms no indication for advanced imaging such as CT at this time. Laboratory work is reviewed. WBC count 12.2, nonspecific in setting of acute diarrhea. Hemoglobin 15.5, platelets 221, sodium 135, potassium 3.9, chloride 104, creatinine 1.13, normal liver enzymes. Patient received several L of IV fluids and was able to tolerate p.o.. Reported feeling better. Patient advised that usually it was better to allow diarrhea to run its course, but if the patient's symptoms are intolerable than he may use Imodium sparingly to help mitigate symptoms. Recommended maintaining fluid hydration with electrolyte fluids such as Gatorade or Pedialyte. Discharge Plan Departure Patient Disposition: Home Clinical Impression: Diarrhea Instructions: DI for Dehydration -- Adult Activity Restrictions/Additional Instructions: Your laboratory work today was reassuring. Your electrolytes and kidney function were normal. You may take Imodium if your diarrhea is making it difficult to function. Make sure to drink plenty of fluids including things like Gatorade or Pedialyte that have electrolytes in them. Prescriptions: No Action sumatriptan succinate [Imitrex] 25 mg tablet See Rx Instructions PO .COMPLEX Qty: 30 1RF Rx Instructions: take 1 tab at onset of headache; if no relief may repeat 1 tab after at least 2 hrs; max = 4 tabs/24 hr PO citalopram 20 mg tablet 20 mg PO DAILY Qty: 90 3RF propranolol 10 mg tablet 10 mg PO TID PRN amoxicillin 500 mg capsule 500 mg PO BID Qty: 20 0RF ondansetron 4 mg tablet,disintegrating 4 mg PO Q8H PRN (Reason: nausea and vomiting) Qty: 30 0RF lorazepam 1 mg tablet 1 mg PO TID PRN (Reason: panic attack) Qty: 30 0RF valacyclovir 1 gram tablet 1,000 mg PO DAILY PRN (Reason: cold sores) Referrals: Jakub Paez MD [Primary Care Provider] - Stand Alone Forms: Patient Portal/API
[2023-07-04 23:00] VITALS: BP 135/79; PULSE 100; O2SAT 98
[2023-07-04 23:15] LABS: Add Manual Diff / Slide Review NO; Basophils Absolute Auto 100 /uL (0-100); Basophils Percent Auto 0.5 % (0-2); Eosinophils Absolute Auto 100 /uL (0-450); Eosinophils Percent Auto 1.1 % (2-4); Hematocrit 44.3 % (41-53); Hemoglobin 15.5 g/dL (13.5-17.5); Lymphocytes Absolute Auto 1300 /uL (1100-4500); Lymphocytes Percent Auto 10.6 % (25-40); Mean Corpuscular HGB Conc 35.1 % (30-36); Mean Corpuscular Hemoglobin 30.3 PG (26-34); Mean Corpuscular Volume 86.2 fL (80-100); Monocytes Absolute Auto 1600 /uL (0-900); Monocytes Percent Auto 12.7 % (3-14); Neutrophils Absolute Auto 9200 /uL (1500-7000); Neutrophils Percent Auto 75.1 % (50-75); Platelet Count 221 X10^3/uL (150-400); Red Blood Cell Count 5.13 X10^6/uL (4.5-5.9); Red Cell Distribution Width 12.7 % (11.6-14.8); White Blood Cell Count 12.2 X10^3/uL (4.5-11.0)
[2023-07-04] MEDS: ONDANSETRON 4 MG/2 ML INJ IV (23:20)
[2023-07-04] MEDS: SODIUM CHLORIDE 0.9% 1,000 ML 1000 ML IV (23:20)
[2023-07-04 23:26] LABS: Alanine Aminotransferase 43 IU/L (<50); Albumin 4.4 g/dL (3.5-5.0); Albumin Globulin Ratio 1.4 (1.0-2.8); Alkaline Phosphatase 62 U/L (38-126); Aspartate Aminotransferase 23 IU/L (17-59); BUN Creatinine Ratio 13.3 (6-22); Bilirubin Total 0.9 mg/dL (0.2-1.3); Blood Urea Nitrogen 15 mg/dL (9-20); Calcium 9.2 mg/dL (8.4-10.2); Carbon Dioxide 26 mmol/L (22-32); Chloride 104 mmol/L (98-107); Estimated Glomerular Filt Rate > 60 mL/min (>60); Globulin 3.2 g/dL (1.7-4.1); Glucose 109 mg/dL (70-100); HEMOLYSIS < 15 (0-50); Potassium 3.9 mmol/L (3.4-5.1); Sodium 135 mmol/L (137-145); Total Protein 7.6 g/dL (6.3-8.2)
[2023-07-04 23:30] VITALS: BP 132/72; PULSE 89; O2SAT 97
[2023-07-05] VITALS: BP 129/67; PULSE 84; O2SAT 95
[2023-07-05 00:18] LABS: Adenovirus Not Detected (Not Detect); B. parapertussis Not Detected (Not Detecte); Bordetella pertussis Not Detected (Not Detect); Chlamydophila pneumoniae Not Detected (Not Detect); Coronavirus 229E Not Detected (Not Detect); Coronavirus HKU1 Not Detected (Not Detect); Coronavirus NL 63 Not Detected (Not Detect); Coronavirus OC43 Not Detected (Not Detect); Human Metapneumovirus Not Detected (Not Detect); Human Rhinovirus/Enterovirus Not Detected (Not Detect); Influenza A Not Detected (Not Detect); Influenza B Not Detected (Not Detect); Mycoplasma pneumoniae Not Detected (Not Detect); Parainfluenza Virus 1 Not Detected (Not Detect); Parainfluenza Virus 2 Not Detected (Not Detect); Parainfluenza Virus 3 Not Detected (Not Detect); Parainfluenza Virus 4 Not Detected (Not Detect); Respiratory Syncytial Virus Not Detected (Not Detect); SARS- CoV-2 Not Detected (Not Detecte)
[2023-07-05 00:30] VITALS: BP 119/69; PULSE 85; O2SAT 96
[2023-07-05 00:48] VITALS: BP 111/75; PULSE 95; O2SAT 96
[2023-07-05] MEDS: SODIUM CHLORIDE 0.9% 1,000 ML 1000 ML IV (00:48)
[2023-07-05 01:00] VITALS: BP 122/75; PULSE 88; O2SAT 96
[2023-07-05 01:30] VITALS: BP 118/66; PULSE 92; O2SAT 97
== END 2023-07-05 01:42 | disposition home or self-care (01) ==
PROVIDERS: Emergency Provider Emergency Medicine; Family Provider Family Medicine; PCP Family Medicine
DX: R11.2 Nausea with vomiting, unspecified (principal); R19.7 Diarrhea, unspecified
CPT/HCPCS: 36415; 80053; 85025; 87633; 96374; 99284; J2405

== ENCOUNTER 2023-07-06 09:44 | Emergency (ER) | payer OTHER, SELFPAY ==
[2023-07-06 09:45] VITALS: BP 140/85; PULSE 91; RESP 14; TEMP 36.2; O2SAT 98; BMI 32.3
[2023-07-06 09:49] VITALS: O2SAT 96
[2023-07-06 09:50] VITALS: BP 140/85; O2SAT 98
--- NOTE | 2023-07-06 09:58 | ED.NAVMDI ---
HPI - Nausea/Vomiting/Diarrhea General Chief complaint: Nausea/Vomiting/Diarrhea Stated complaint: Abd pain, getting worse Time Seen by Provider: 07/06/23 09:51 Source: patient Mode of arrival: Ambulatory History of Present Illness HPI Narrative: 28-year-old male who is here for evaluation of diarrhea. He was seen here in the emergency department several days ago. Had a relatively unremarkable workup. No stool samples were sent. He was told that if he got any blood in his stool that he needs to return to the ER. He still continues to have diarrhea but his other symptoms to include nausea and fevers have resolved. He has not had any recent travel. Had antibiotics but that was approximately 6 weeks ago. Denies any urinary symptoms. This morning he did have bright red blood in his stool. He states that his bottom is somewhat irritated. Very minimal lower abdominal pain. Related Data Home Medications Medication Instructions Recorded Confirmed propranolol 10 mg tablet 10 mg PO TID PRN 11/24/20 05/19/23 valacyclovir 1 gram tablet 1,000 mg PO DAILY PRN cold sores 06/03/21 05/19/23 Previous Rx's Medication Instructions Recorded sumatriptan succinate 25 mg tablet See Rx Instructions PO .COMPLEX 03/09/22 (Imitrex) #30 tabs citalopram 20 mg tablet 20 mg PO DAILY #90 tabs 05/17/23 amoxicillin 500 mg capsule 500 mg PO BID #20 caps 05/19/23 lorazepam 1 mg tablet 1 mg PO TID PRN panic attack #30 05/19/23 tabs ondansetron 4 mg disintegrating 4 mg PO Q8H PRN nausea and 05/19/23 tablet vomiting #30 tabs Allergies Allergy/AdvReac Type Severity Reaction Status Date / Time No Known Drug Allergies Allergy Verified 07/06/23 09:51 Review of Systems Review of Systems Narrative: See HPI Patient History Medical History Herniated nucleus pulposus, L5-S1, right Facet arthropathy, lumbar Hemangioma of spine 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 Anxiety (~2019) Migraines Headache Exertional compartment syndrome (~2016) Shoulder pain (~2016) Foot pain (~2017) Chronic back pain (~2017) Surgical History Hx of vasectomy Anesthesia [place] teeth removed (~2013) History of left knee surgery (~2010) Family History Father Hypertension Asthma Mother Mental health problem Low blood pressure Hypothyroidism Horners syndrome Celiac disease Brother Asthma Grandfather Non-alcoholic cirrhosis BPH (benign prostatic hyperplasia) Gilbert's syndrome Grandmother Breast cancer Diabetes mellitus Hyperlipidemia Mental health problem Hypothyroidism Kidney disease Grandfather Skin cancer Grandmother Diabetes mellitus Asthma History of heart attack Social History Smoking Status: Never smoker Smoking Status: Never smoker alcohol intake frequency: holidays/special occasions only Substance Use Type: does not use Exam Initial Vital Signs Initial Vital Signs: Vital Signs Temperature 97.2 F L 07/06/23 09:45 Pulse Rate 91 H 07/06/23 09:45 Respiratory Rate 14 07/06/23 09:45 Blood Pressure 140/85 07/06/23 09:45 Pulse Oximetry 98 07/06/23 09:45 Oxygen Delivery Method Room Air 07/06/23 09:45 HENMT Head: normal to inspection and normocephalic GI Inspection: normal to inspection and non-distended Palpation: soft, No firm, No guarding and No tender Rectal Exam: No fissure and No hemorrhoids Skin General: no rashes or lesions noted Neuro General: patient alert and patient awake Course Orders Ordered: ED Orders 07/06/23 10:10 Basic Metabolic Panel Stat Complete Blood Count AUTO DIFF Stat 07/06/23 11:03 GI Panel (Film Array) Stat Discontinued Medications Sodium Chloride (Normal Saline 0.9%) 1,000 mls @ 1,000 mls/hr IV BOLUS ONE Stop: 07/06/23 10:58 Last Infusion: 07/06/23 11:03 Dose: Infused Documented By: Admin: 07/06/23 10:15 Dose: 1,000 mls/hr Documented By: ABIDA Vital Signs Vital signs: Vital Signs - 8 hr 07/06/23 09:45 07/06/23 09:49 07/06/23 09:50 Temperature 97.2 F L Pulse Rate 91 H Respiratory Rate 14 Blood Pressure 140/85 Pulse Oximetry 98 96 98 Oxygen Delivery Method Room Air 07/06/23 09:50 07/06/23 10:00 07/06/23 10:01 Temperature Pulse Rate 81 86 Respiratory Rate Blood Pressure 140/85 Pulse Oximetry 97 98 Oxygen Delivery Method 07/06/23 10:01 Temperature Pulse Rate Respiratory Rate Blood Pressure 127/75 Pulse Oximetry Oxygen Delivery Method MDM - Nausea/Vomiting/Diarrhea Lab Data Attestation: I reviewed the patient's lab results. 07/06/23 10:10 07/06/23 10:10 Labs: Lab Results 07/06/23 07/06/23 Range/Units 10:10 11:03 WBC 8.5 (4.5-11.0) X10^3/uL RBC 4.73 (4.5-5.9) X10^6/uL Hgb 14.3 (13.5-17.5) g/dL Hct 40.5 L (41-53) % MCV 85.7 (80-100) fL MCH 30.2 (26-34) PG MCHC 35.3 (30-36) % RDW 12.6 (11.6-14.8) % Plt Count 239 (150-400) X10^3/uL Neut % (Auto) 70.2 (50-75) % Lymph % (Auto) 13.6 L (25-40) % [place] % (Auto) 12.8 (3-14) % Eos % (Auto) 2.7 (2-4) % Baso % (Auto) 0.7 (0-2) % Neut # (Auto) 6000 (0653[address]8221) /uL Lymph # (Auto) 1200 (2710-5893) /uL [place] # (Auto) 1100 H (0-900) /uL Eos # (Auto) 200 (0-450) /uL Baso # (Auto) 100 (0-100) /uL Sodium 138 (137-145) mmol/L Potassium 3.9 (3.4-5.1) mmol/L Chloride 105 (98-107) mmol/L Carbon Dioxide 27 (22-32) mmol/L BUN 12 (9-20) mg/dL Creatinine 0.88 (0.66-1.25) mg/dL Estimated GFR > 60 (>60) mL/min BUN/Creatinine Ratio 13.6 (6-22) Glucose 95 (70-100) mg/dL Calcium 8.8 (8.4-10.2) mg/dL Stl C. cayetanensis PCR Not detected (Not Detect) Stool Rotavirus (PCR) Not detected (Not Detect) Stool Adenovirus (PCR) Not detected (Not Detect) Stool Astrovirus (PCR) Not detected (Not Detect) Stool Cryptosporidium PCR Not detected (Not Detect) Stl E.coli Shiga Tox PCR Not detected (Not Detect) St Sh/Enteroin Ecoli PCR Not detected (Not Detect) Stl Enterotoxigenic E PCR Not detected (Not Detect) Stool EPEC (PCR) Not detected (Not Detect) Stl E. histolytica PCR Not detected (Not Detect) Stool Giardia Lamblia PCR Not detected (Not Detect) Stool Sapovirus (PCR) Not detected (Not Detect) Stl P. shigelloides PCR Not detected (Not Detect) St Y.enterocolitica PCR Not detected (Not Detect) Stool Vibrio (PCR) Not detected (Not Detect) Stl Vibrio cholerae PCR Not detected (Not Detect) Stl Enteroaggr Ecoli PCR Not detected (Not Detect) Stl Norovirus GI/GII PCR Not detected (Not Detect) Campylobacter (PCR) Detected (Not Detect) C. difficile Tox (PCR) Not detected (Not Detect) Salmonella (PCR) Not detected (Not Detect) MDM Narrative Medical decision making narrative: Patient is positive for Campylobacter. This is normally a self-limiting illness. Patient is well hydrated. Labs are unremarkable. We will hold on any antibiotics for now. We did discuss potentially using antidiarrheal medicines. No indication for admission to the hospital. We will hold on any advanced imaging for now. He was given return precautions and follow-up instructions. He expressed understanding and agreement. Discharge Plan Departure Patient Disposition: Home Clinical Impression: Campylobacter diarrhea Instructions: Diarrhea Activity Restrictions/Additional Instructions: Continue to take all of your medications as directed. You can try a dose of Imodium/loperamide to try to help slow down the amount of diarrhea that you are having. Be sure that you are staying hydrated. Return to the emergency department for new or worsening symptoms. Prescriptions: No Action sumatriptan succinate [Imitrex] 25 mg tablet See Rx Instructions PO .COMPLEX Qty: 30 1RF Rx Instructions: take 1 tab at onset of headache; if no relief may repeat 1 tab after at least 2 hrs; max = 4 tabs/24 hr PO citalopram 20 mg tablet 20 mg PO DAILY Qty: 90 3RF propranolol 10 mg tablet 10 mg PO TID PRN amoxicillin 500 mg capsule 500 mg PO BID Qty: 20 0RF ondansetron 4 mg tablet,disintegrating 4 mg PO Q8H PRN (Reason: nausea and vomiting) Qty: 30 0RF lorazepam 1 mg tablet 1 mg PO TID PRN (Reason: panic attack) Qty: 30 0RF valacyclovir 1 gram tablet 1,000 mg PO DAILY PRN (Reason: cold sores) Referrals: Jakub Paez MD [Primary Care Provider] - Stand Alone Forms: Patient Portal/API
[2023-07-06 10:00] VITALS: PULSE 81; O2SAT 97
[2023-07-06 10:01] VITALS: BP 127/75; PULSE 86; O2SAT 98
[2023-07-06] MEDS: SODIUM CHLORIDE 0.9% 1,000 ML 1000 ML IV (10:15)
[2023-07-06 10:21] LABS: Add Manual Diff / Slide Review NO; Basophils Absolute Auto 100 /uL (0-100); Basophils Percent Auto 0.7 % (0-2); Eosinophils Absolute Auto 200 /uL (0-450); Eosinophils Percent Auto 2.7 % (2-4); Hematocrit 40.5 % (41-53); Hemoglobin 14.3 g/dL (13.5-17.5); Lymphocytes Absolute Auto 1200 /uL (1100-4500); Lymphocytes Percent Auto 13.6 % (25-40); Mean Corpuscular HGB Conc 35.3 % (30-36); Mean Corpuscular Hemoglobin 30.2 PG (26-34); Mean Corpuscular Volume 85.7 fL (80-100); Monocytes Absolute Auto 1100 /uL (0-900); Monocytes Percent Auto 12.8 % (3-14); Neutrophils Absolute Auto 6000 /uL (1500-7000); Neutrophils Percent Auto 70.2 % (50-75); Platelet Count 239 X10^3/uL (150-400); Red Blood Cell Count 4.73 X10^6/uL (4.5-5.9); Red Cell Distribution Width 12.6 % (11.6-14.8); White Blood Cell Count 8.5 X10^3/uL (4.5-11.0)
[2023-07-06 10:37] LABS: BUN Creatinine Ratio 13.6 (6-22); Blood Urea Nitrogen 12 mg/dL (9-20); Calcium 8.8 mg/dL (8.4-10.2); Carbon Dioxide 27 mmol/L (22-32); Chloride 105 mmol/L (98-107); Estimated Glomerular Filt Rate > 60 mL/min (>60); Glucose 95 mg/dL (70-100); HEMOLYSIS 15 (0-50); Potassium 3.9 mmol/L (3.4-5.1); Sodium 138 mmol/L (137-145)
[2023-07-06 12:30] LABS: Adenovirus F 40/41 Not Detected (Not Detect); Astrovirus Not Detected (Not Detect); Clostridium difficile toxin AB Not Detected (Not Detect); Cryptosporidium Not Detected (Not Detect); Cyclospora cayetanensis Not Detected (Not Detect); Entamoeba histolytica Not Detected (Not Detect); Enteroaggregative E.coli Not Detected (Not Detect); Enteropathogenic E.coli Not Detected (Not Detect); Enterotoxigenic E.coli It/st Not Detected (Not Detect); Giardia lamblia Not Detected (Not Detect); Norovirus GI/GII Not Detected (Not Detect); Plesiomonsa shigelloides Not Detected (Not Detect); Rotavirus A Not Detected (Not Detect); Salmonella Not Detected (Not Detect); Sapovirus Not Detected (Not Detect); Shiga-like toxin-prod E.coli Not Detected (Not Detect); Shigella/Enteroinvasive E.coli Not Detected (Not Detect); Vibrio Not Detected (Not Detect); Vibrio cholerae Not Detected (Not Detect); Yersinia enterocolitica Not Detected (Not Detect)
[2023-07-06 12:33] LABS: Campylobacter Detected (Not Detect)
[2023-07-06 12:56] VITALS: BP 130/82; PULSE 80; TEMP 36.8; O2SAT 99
== END 2023-07-06 12:54 | disposition home or self-care (01) ==
PROVIDERS: Emergency Provider Emergency Medicine; Family Provider Family Medicine; PCP Family Medicine
DX: A04.5 Campylobacter enteritis (principal)
CPT/HCPCS: 36415; 80048; 85025; 87507; 99283; 99284

== ENCOUNTER → 2023-08-02 13:26 | Outpatient (CLI) | payer OTHER, SELFPAY ==
[2023-08-06 10:12] LABS: Deamidated Gliadin Ab IgA 3 units (0-19); Deamidated Gliadin Ab IgG 2 units (0-19); Immunoglobulin A,Qn 154 mg/dL (90-386); t-Transglutaminase IgA <2 U/mL (0-3)
== END ==
PROVIDERS: Family Provider Family Medicine; PCP Family Medicine; Referring Provider Family Medicine; Visit Provider Family Medicine
DX: R19.5 Other fecal abnormalities (principal); R53.82 Chronic fatigue, unspecified
CPT/HCPCS: 36415; 82784; 83516

== ENCOUNTER 2023-09-27 11:37 | Outpatient (CLI) | payer OTHER, SELFPAY ==
[2023-09-27] VITALS (11 sets, daily range): BP systolic 120–143; BP diastolic 60–82; PULSE 64–85; RESP 12–21; TEMP 36.2; O2SAT 97–100
--- NOTE | 2023-09-27 13:00 | DI.RAD.S_ITS ---
PROCEDURE: PAIN L/S TRANSFORAMINAL INJECT INDICATIONS: SPONDYLOSIS COMPARISON: [facility], , PAIN L/S TRANSFORAMINAL INJECT, 07/21/2021, 14:04. FINDINGS: Fluoroscopic spot filming was performed to verify placement of spinal needles at the L5-S1 level(s), as labeled on the films. Appropriate location(s) of the needle tip(s) was confirmed by injection of iodinated contrast. IMPRESSION: L5-S1 injection. Please see operative note for full details. Dictated by: Bert Solis M.D. on 09/27/2023 at 16:38 Approved by: Bert Solis M.D. on 09/27/2023 at 16:39
[2023-09-27] MEDS: MIDAZOLAM 2 MG/2 ML VIAL IV (13:06)
[2023-09-27] MEDS: fentaNYL 100 MCG/2 ML INJ 50 MCG IV (13:14)
[2023-09-27] MEDS: iopamidoL 15 ML VIAL 3 ML INJ (13:16)
[2023-09-27] MEDS: BETAMETHASONE 30 MG/5 ML MDV 6 MG INJ (13:16)
[2023-09-27] MEDS: BUPIVACAINE 0.25% (PF) VIAL 2 ML INJ (13:16)
[2023-09-27] MEDS: DEXAMETHASONE 10 MG/ML VIAL INJ ×2 (13:17)
--- NOTE | 2023-09-27 13:35 | P.PCN_ITS ---
Date/Time/Diagnoses Date of procedure: 09/27/23 Time of procedure: 13:35 Pre-procedure diagnosis: FORAMINAL STENOSIS WITH LE SYMPTOMS Post-procedure diagnosis: same Procedure Notes Procedure: 1. FLUOROSCOPICALLY GUIDED CONTRAST CONTROLLED TRANSFORAMINAL EPIDURAL STEROID INJECTION - RIGHT L5/S1 TFESI Indications: Kobe is referred by Dr. Paez for treatment of Foraminal Stenosis with Right LE Symptoms Physician: Quoc Wolfe Total Fluoroscopy time (seconds): 11 Total sedation minutes: 16 Complications: none Procedure in detail & Post-procedure care: FINDINGS Foraminal Nerve Root Compression secondary to disc disease and facet hypertrophy DESCRIPTION OF PROCEDURE Following review of allergy and review of potential side effects and complications, including, but not necessarily limited to, infection, allergic reaction, local tissue breakdown, stroke, temporary or permanent nerve injury, paralysis, and possible , the patient indicated that the patient understood and agreed to proceed. An informed consent document was signed by the patient, witnessed by a nurse, and placed in the patient's chart. Additionally, other treatment options including medications, modalities, and physical therapy were reviewed with the patient. After review of previous anaesthesic history and IV conscious sedation the patient was deemed safe to proceed with today?s procedure with IV conscious sedation as ASA class II designation. Safety time-out was performed to confirm patient ID, procedure to be performed and site of procedure. IV sedation was accomplished with a combination of 2mg of Versed and 50mcg of Fentanyl was administered by the RN after DO order, titrated to patient comfort during the course of the procedure while the patient remained responsive to all verbal commands In the prone position following sterile prep and drape of the lumbar region, the right L5/S1 posterior neuroforamen was identified fluoroscopically. The skin was anesthetized via a 25-gauge 1.5-inch needle with 1% lidocaine solution. At this point, a 25-gauge 3.5-inch spinal needle was atraumatically introduced and advanced under fluoroscopic guidance through the posterior right L5/S1 neuroforamen to approximately the anterior aspect of the canal. Depth was confirmed on lateral view. Following negative aspiration, injection of approximately 1.5cc of Isovue 200 under live fluoroscopy in the AP view confirmed excellent flow along the nerve root, into the epidural space without vascular or intrathecal uptake observed Radiological data, including multiple fluoroscopic views of the lumbosacral spine, reveal a spinal needle at the right L5/S1 posterior neuroforamen. Subsequent views show flow of contrast material flowing superiorly and inferiorly along the nerve root confirming epidural flow. Subsequently, a test dose of 1.5 cc of 1% lidocaine solution was administered and patient was observed for two minutes for signs or symptoms of complications, including abdominal pain, shortness of breath, bilateral upper or lower extremity weakness, nausea and vomiting, prior to steroid injection. At this point, a total of 2cc or 10mg of dexamethasone and 6mg of betamethasone was injected without incident. The procedure tolerated the procedure well without signs or symptoms of complications prior to transfer to the recovery area continued monitoring without incident. The patient was then transferred to the recovery area where they were observed for an appropriate time after the injection. The patient reported a VAS score of 7 prior to the procedure and a post- procedure VAS of 0. POST OP INSTRUCTIONS The patient was provided a Pain Log to continue to record their response to the target-specific procedure prior to follow-up visit with their referring physician. Additionally, specific post-injection care instructions and a contact number to our office were provided if concerns arise regarding possible complications associated with the procedure are suspected.
== END 2023-09-27 13:50 | disposition home or self-care (01) ==
LOC: RAD 11:38
PROVIDERS: Family Provider Family Medicine; PCP Family Medicine; Referring Provider Physical Medicine & Rehabilitation; Visit Provider Physical Medicine & Rehabilitation
DX: M48.07 Spinal stenosis, lumbosacral region (principal); M51.17 Intervertebral disc disorders with radiculopathy, lumbosacral region; M47.27 Other spondylosis with radiculopathy, lumbosacral region
CPT/HCPCS: 64483; 99152; J0702; J1100; J2250; J3010; J3490

== ENCOUNTER → 2023-12-02 17:23 | Outpatient (CLI) | payer OTHER, SELFPAY | PROVIDERS: Family Provider Family Medicine; PCP Family Medicine; Referring Provider Internal Medicine; Visit Provider Internal Medicine | DX: Z23 Encounter for immunization (principal) | CPT/HCPCS: 90471; 90656 ==

== ENCOUNTER → 2023-12-16 14:29 | Outpatient (CLI) | payer OTHER, SELFPAY ==
--- NOTE | 2023-12-16 14:30 | DI.RAD.S_ITS ---
PROCEDURE: XR LUMBAR SPINE MIN 4V INDICATIONS: BACK PAIN TECHNIQUE: 5 views of the lumbar spine were acquired, including bilateral oblique views. COMPARISON: [facility], , XR LUMBAR SPINE MIN 4V, 06/03/2021, 15:35. FINDINGS: Bones: 5 nonrib-bearing vertebrae are present. There is trace anterolisthesis of L4 on L5. Disc space and foraminal narrowing remains most prominent at L5-S1. No vertebral body compression fractures. No suspicious bony lesions. Soft tissues: Overlying bowel gas pattern is normal. No suspicious soft tissue calcifications. Oblique images: Pars defect is present at L4. IMPRESSION: Unchanged appearance of anterolisthesis of L4 on L5 with pars defect. Disc and foraminal narrowing most prominent L5-S1. Dictated by: Kaya Bennett M.D. on 12/16/2023 at 15:01 Approved by: Kaya Bennett M.D. on 12/16/2023 at 15:02
== END ==
PROVIDERS: Family Provider Family Medicine; PCP Family Medicine; Referring Provider Physical Medicine & Rehabilitation; Visit Provider Physical Medicine & Rehabilitation
DX: M47.816 Spondylosis without myelopathy or radiculopathy, lumbar region (principal); M51.27 Other intervertebral disc displacement, lumbosacral region; M48.07 Spinal stenosis, lumbosacral region
CPT/HCPCS: 72110

== ENCOUNTER 2024-01-24 08:07 | Outpatient (CLI) | payer OTHER, SELFPAY ==
[2024-01-24] VITALS (8 sets, daily range): BP systolic 117–130; BP diastolic 58–80; PULSE 69–77; RESP 10–20; TEMP 36.3; O2SAT 96–100
--- NOTE | 2024-01-24 08:08 | DI.RAD.S_ITS ---
PROCEDURE: PAIN L/S TRANSFORAMINAL INJECT INDICATIONS: Right L4/5, L5/S1 TFESI COMPARISON: [facility], , PAIN L/S TRANSFORAMINAL INJECT, 09/27/2023, 13:12. FINDINGS/IMPRESSION: Fluoroscopic spot filming was performed to verify placement of spinal needles at the right L4-S1 level(s), as labeled on the films. Appropriate location(s) of the needle tip(s) was confirmed by injection of iodinated contrast. Dictated by: Bert Solis M.D. on 01/24/2024 at 14:53 Approved by: Bert Solis M.D. on 01/24/2024 at 14:53
[2024-01-24] MEDS: MIDAZOLAM 2 MG/2 ML VIAL IV (09:06)
[2024-01-24] MEDS: MIDAZOLAM 2 MG/2 ML VIAL 1 MG IV ×2 (09:12→09:14)
[2024-01-24] MEDS: BUPIVACAINE 0.25% (PF) VIAL 2 ML INJ (09:13)
[2024-01-24] MEDS: DEXAMETHASONE 10 MG/ML VIAL 20 MG INJ (09:13)
[2024-01-24] MEDS: iopamidoL 15 ML VIAL 3 ML INJ (09:15)
[2024-01-24] MEDS: BETAMETHASONE 30 MG/5 ML MDV 12 MG INJ (09:16)
[2024-01-24] MEDS: LIDOCAINE 1% 20 ML 5 ML INJ (09:17)
--- NOTE | 2024-01-24 09:30 | P.PCN_ITS ---
Date/Time/Diagnoses Date of procedure: 01/24/24 Time of procedure: 09:30 Pre-procedure diagnosis: 1. FORAMINAL STENOSIS WITH LE SYMPTOMS Post-procedure diagnosis: same Procedure Notes Procedure: 1. FLUOROSCOPICALLY GUIDED CONTRAST CONTROLLED TRANSFORAMINAL EPIDURAL STEROID INJECTION - RIGHT L4/5 TFESI Indications: Kobe is referred by Dr. Paez for treatment of Foraminal Stenosis with Right LE Symptoms Physician: Quoc Wolfe Total Fluoroscopy time (seconds): 11 Total sedation minutes: 17 Complications: none Procedure in detail & Post-procedure care: FINDINGS Foraminal Nerve Root Compression secondary to disc disease and facet hypertrophy DESCRIPTION OF PROCEDURE Following review of allergy and review of potential side effects and complications, including, but not necessarily limited to, infection, allergic reaction, local tissue breakdown, stroke, temporary or permanent nerve injury, paralysis, and possible , the patient indicated that the patient understood and agreed to proceed. An informed consent document was signed by the patient, witnessed by a nurse, and placed in the patient's chart. Additionally, other treatment options including medications, modalities, and physical therapy were reviewed with the patient. After review of previous anaesthesic history and IV conscious sedation the patient was deemed safe to proceed with today?s procedure with IV conscious sedation as ASA class II designation. Safety time-out was performed to confirm patient ID, procedure to be performed and site of procedure. IV sedation was accomplished with a combination of 4mg of Versed was administered by the RN after DO order, titrated to patient comfort during the course of the procedure while the patient remained responsive to all verbal commands In the prone position following sterile prep and drape of the lumbar region, the right L4/5 posterior neuroforamen was identified fluoroscopically. The skin was anesthetized via a 25-gauge 1.5-inch needle with 1% lidocaine solution. At this point, a 25-gauge 3.5-inch spinal needle was atraumatically introduced and advanced under fluoroscopic guidance through the posterior right L4/5 neuroforamen to approximately the anterior aspect of the canal. Depth was confirmed on lateral view. Following negative aspiration, injection of approximately 1.5cc of Isovue 200 under live fluoroscopy in the AP view confirmed excellent flow along the nerve root, into the epidural space without vascular or intrathecal uptake observed Radiological data, including multiple fluoroscopic views of the lumbosacral sp ine, reveal a spinal needle at the right L4/5 posterior neuroforamen. Subsequent views show flow of contrast material flowing superiorly and inferiorly along the nerve root confirming epidural flow. Subsequently, a test dose of 1.5 cc of 1% lidocaine solution was administered and patient was observed for two minutes for signs or symptoms of complications, including abdominal pain, shortness of breath, bilateral upper or lower extremity weakness, nausea and vomiting, prior to steroid injection. At this point, a total of 2cc or 10mg of dexamethasone and 6mg of betamethasone was injected without incident. The procedure tolerated the procedure well without signs or symptoms of complications prior to transfer to the recovery area continued monitoring without incident. The patient was then transferred to the recovery area where they were observed for an appropriate time after the injection. The patient reported a VAS score of 7 prior to the procedure and a post- procedure VAS of 0. POST OP INSTRUCTIONS The patient was provided a Pain Log to continue to record their response to the target-specific procedure prior to follow-up visit with their referring physician. Additionally, specific post-injection care instructions and a contact number to our office were provided if concerns arise regarding possible complications associated with the procedure are suspected.
--- NOTE | 2024-01-24 09:31 | P.PCN_ITS ---
Date/Time/Diagnoses Date of procedure: 01/24/24 Time of procedure: 09:31 Pre-procedure diagnosis: FORAMINAL STENOSIS WITH LE SYMPTOMS Post-procedure diagnosis: same Procedure Notes Procedure: 1. FLUOROSCOPICALLY GUIDED CONTRAST CONTROLLED TRANSFORAMINAL EPIDURAL STEROID INJECTION - RIGHT L5/S1 TFESI Indications: Kobe is referred by Dr. Paez for treatment of local yet Stenosis with Right LE Symptoms Physician: Quoc Wolfe Total Fluoroscopy time (seconds): 11 Total sedation minutes: 17 Complications: none Procedure in detail & Post-procedure care: FINDINGS Foraminal Nerve Root Compression secondary to disc disease and facet hypertrophy DESCRIPTION OF PROCEDURE Following review of allergy and review of potential side effects and complications, including, but not necessarily limited to, infection, allergic reaction, local tissue breakdown, stroke, temporary or permanent nerve injury, paralysis, and possible , the patient indicated that the patient understood and agreed to proceed. An informed consent document was signed by the patient, witnessed by a nurse, and placed in the patient's chart. Additionally, other treatment options including medications, modalities, and physical therapy were reviewed with the patient. After review of previous anaesthesic history and IV conscious sedation the patient was deemed safe to proceed with today?s procedure with IV conscious sedation as ASA class II designation. Safety time-out was performed to confirm patient ID, procedure to be performed and site of procedure. IV sedation was accomplished with a combination of 4mg of Versed was administered by the RN after DO order, titrated to patient comfort during the course of the procedure while the patient remained responsive to all verbal commands In the prone position following sterile prep and drape of the lumbar region, the right L5/S1 posterior neuroforamen was identified fluoroscopically. The skin was anesthetized via a 25-gauge 1.5-inch needle with 1% lidocaine solution. At this point, a 25-gauge 3.5-inch spinal needle was atraumatically introduced and advanced under fluoroscopic guidance through the posterior right L5/S1 neuroforamen to approximately the anterior aspect of the canal. Depth was confirmed on lateral view. Following negative aspiration, injection of approximately 1.5cc of Isovue 200 under live fluoroscopy in the AP view confirmed excellent flow along the nerve root, into the epidural space without vascular or intrathecal uptake observed Radiological data, including multiple fluoroscopic views of the lumbosacral spine, reveal a spinal needle at the right L5/S1 posterior neuroforamen. Subsequent views show flow of contrast material flowing superiorly and inferiorly along the nerve root confirming epidural flow. Subsequently, a test dose of 1.5 cc of 1% lidocaine solution was administered and patient was observed for two minutes for signs or symptoms of complications, including abdominal pain, shortness of breath, bilateral upper or lower extr emity weakness, nausea and vomiting, prior to steroid injection. At this point, a total of 2cc or 10mg of dexamethasone and 6mg of betamethasone was injected without incident. The procedure tolerated the procedure well without signs or symptoms of complications prior to transfer to the recovery area continued monitoring without incident. The patient was then transferred to the recovery area where they were observed for an appropriate time after the injection. The patient reported a VAS score of 7 prior to the procedure and a post- procedure VAS of 0. POST OP INSTRUCTIONS The patient was provided a Pain Log to continue to record their response to the target-specific procedure prior to follow-up visit with their referring physician. Additionally, specific post-injection care instructions and a contact number to our office were provided if concerns arise regarding possible complications associated with the procedure are suspected.
== END 2024-01-24 09:45 | disposition home or self-care (01) ==
LOC: RAD 08:08
PROVIDERS: Family Provider Family Medicine; PCP Family Medicine; Referring Provider Physical Medicine & Rehabilitation; Visit Provider Physical Medicine & Rehabilitation
DX: M48.07 Spinal stenosis, lumbosacral region (principal); M48.061 Spinal stenosis, lumbar region without neurogenic claudication; M51.17 Intervertebral disc disorders with radiculopathy, lumbosacral region; M47.27 Other spondylosis with radiculopathy, lumbosacral region; M51.16 Intervertebral disc disorders with radiculopathy, lumbar region; M47.26 Other spondylosis with radiculopathy, lumbar region
CPT/HCPCS: 64483; 64484; 99152; J0702; J1100; J2250; J3490

== ENCOUNTER 2024-02-06 09:27 | Emergency (ER) | payer OTHER, SELFPAY ==
[2024-02-06 09:45] VITALS: BP 141/89; PULSE 74; RESP 16; TEMP 36.6; O2SAT 100; BMI 31.5
--- NOTE | 2024-02-06 10:05 | ED_ITS ---
HPI - Abdominal Pain General Chief Complaint: Abdominal Pain Stated Complaint: abd pain Time Seen by Provider: 02/06/24 09:56 History of Present Illness HPI narrative: Patient is a 28-year-old healthy male presenting today with right lower quadrant pain. He started to notice a little bit yesterday seems to be worse today. It does seem to come and go in waves when the pain is really intense he was nauseous but no vomiting. He does have a history of kidney stones but he feels like this is little bit different. No fever chills or other symptoms. Denies flank pain Related Data Previous Rx's Medication Instructions Recorded citalopram 20 mg tablet 20 mg PO DAILY #90 tabs 05/17/23 lorazepam 1 mg tablet 1 mg PO TID PRN panic attack #30 05/19/23 tabs ondansetron 4 mg disintegrating 4 mg PO Q8H PRN nausea and 08/02/23 tablet vomiting #30 tabs sumatriptan succinate 25 mg tablet See Rx Instructions PO .COMPLEX 08/02/23 (Imitrex) #30 tabs diazepam 10 mg tablet (Valium) 10 mg PO .COMPLEX #7 tabs 12/19/23 sulfamethoxazole 800 1 tab PO BID 7 days #14 tabs 02/06/24 mg-trimethoprim 160 mg tablet (Bactrim DS) Allergies Allergy/AdvReac Type Severity Reaction Status Date / Time No Known Drug Allergies Allergy Verified 12/19/23 09:22 Patient History Medical History Herniated nucleus pulposus, L5-S1, right Facet arthropathy, lumbar Hemangioma of spine 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 Anxiety (~2019) Migraines Headache Exertional compartment syndrome (~2016) Shoulder pain (~2016) Foot pain (~2016) Chronic back pain (~2017) Surgical History Hx of vasectomy Anesthesia [place] teeth removed (~2013) History of left knee surgery (~2010) Family History Father Hypertension Asthma Mother Mental health problem Low blood pressure Hypothyroidism Horners syndrome Celiac disease Brother Asthma Grandfather Non-alcoholic cirrhosis BPH (benign prostatic hyperplasia) Gilbert's syndrome Grandmother Breast cancer Diabetes mellitus Hyperlipidemia Mental health problem Hypothyroidism Kidney disease Grandfather Skin cancer Grandmother Diabetes mellitus Asthma History of heart attack Social History Smoking Status: Never smoker Smoking Status: Never smoker alcohol intake frequency: holidays/special occasions only Exam Initial Vital Signs Initial Vital Signs: Vital Signs Temperature 97.9 F 02/06/24 09:45 Pulse Rate 74 02/06/24 09:45 Respiratory Rate 16 02/06/24 09:45 Blood Pressure 141/89 H 02/06/24 09:45 Pulse Oximetry 100 02/06/24 09:45 Oxygen Delivery Method Room Air 02/06/24 09:45 GENERAL: Alert well-appearing 28-year-old and in no acute distress. HEENT: Head atraumatic,EOMI, pupils reactive, face symmetric, moist mucous membranes CARDIOVASCULAR: Regular rate and rhythm without murmurs, rubs or gallops. RESPIRATORY: Breath sounds equal bilaterally, no wheezes rales or rhonchi. ABDOMEN: Soft, minimal right lower quadrant pain no guarding no rebound negative Ricardo's sign : No CVA tenderness EXTREMITIES: Normal range of motion, no clubbing or edema. Neurovascularly intact NEUROLOGICAL: Alert and oriented x4.Normal gait and speech. SKIN: Warm, dry, no laceration, no petechiae, no rashes or lesions. Course Orders Ordered: Discontinued Medications Ketorolac Tromethamine (Ketorolac 30 Mg/Ml Vial) 15 mg IV NOW ONE Stop: 02/06/24 10:07 Last Admin: 02/06/24 10:41 Dose: 15 mg Documented By: Vital Signs Vital signs: Vital Signs - 8 hr 02/06/24 11:58 Temperature 97.7 F MDM - Abdominal Pain Lab Data 02/06/24 09:50 02/06/24 09:50 Labs: Lab Results 02/06/24 Range/Units 09:50 WBC 7.4 (4.5-11.0) X10^3/uL RBC 5.10 (4.5-5.9) X10^6/uL Hgb 15.5 (13.5-17.5) g/dL Hct 45.1 (41-53) % MCV 88.5 (80-100) fL MCH 30.5 (26-34) PG MCHC 34.5 (30-36) % RDW 13.0 (11.6-14.8) % Plt Count 243 (150-400) X10^3/uL Neut % (Auto) 65.9 (50-75) % Lymph % (Auto) 24.9 L (25-40) % [place] % (Auto) 7.3 (3-14) % Eos % (Auto) 0.9 L (2-4) % Baso % (Auto) 1.0 (0-2) % Neut # (Auto) 4900 (8048-7752) /uL Lymph # (Auto) 1800 (6001-4268) /uL [place] # (Auto) 500 (0-900) /uL Eos # (Auto) 100 (0-450) /uL Baso # (Auto) 100 (0-100) /uL Sodium 139 (137-145) mmol/L Potassium 4.0 (3.4-5.1) mmol/L Chloride 104 (98-107) mmol/L Carbon Dioxide 29 (22-32) mmol/L BUN 16 (9-20) mg/dL Creatinine 1.14 (0.66-1.25) mg/dL Estimated GFR > 60 (>60) mL/min BUN/Creatinine Ratio 14.0 (6-22) Glucose 90 (70-100) mg/dL Calcium 9.4 (8.4-10.2) mg/dL Total Bilirubin 0.6 (0.2-1.3) mg/dL AST 33 (17-59) IU/L ALT 49 (<50) IU/L Alkaline Phosphatase 56 (38-126) U/L Total Protein 7.4 (6.3-8.2) g/dL Albumin 4.6 (3.5-5.0) g/dL Globulin 2.8 (1.7-4.1) g/dL Albumin/Globulin Ratio 1.6 (1.0-2.8) Lipase 58 (23-300) U/L Point of care testing: Urine Dip Bedside Urine Glucose Negative Bedside Urine Bilirubin - Negative Bedside Urine Ketone - Negative Urine Specific Jones 1.000 Bedside Urine Occult Blood - Negative Bedside Urine pH 8.5 Bedside Urine Protein - Negative Bedside Urine Urobilinogen - Negative Bedside Urine Nitrite - Negative Bedside Urine Leukocytes - Negative Esterase Imaging Data CT scan - abdomen/pelvis: Radiologist's Impression: PROCEDURE: CT ABDOMEN PELVIS W CON INDICATIONS: right lower quad pain TECHNIQUE: After the administration of intravenous contrast, axial sections acquired from the lung bases to the pubic symphysis. Coronal and sagittal reformats were performed. For radiation dose reduction, the following was used: automated exposure control, adjustment of mA and/or kV according to patient size. COMPARISON: None. FINDINGS: Image quality: Diagnostic. Lower Chest: No significant findings. ABDOMEN: Liver: No solid mass. Decreased in attenuation, most consistent with hepatic steatosis. Gallbladder: No radiopaque gallstones or wall thickening. Biliary ducts: No biliary dilation. Pancreas: No ductal dilation. Spleen: Size is within normal limits. Adrenal Glands: No adrenal nodules. Kidneys and Ureters: No hydronephrosis. No solid mass. No complex renal cystic lesion which requires follow up. Stomach and Bowel: Normal colonic caliber, without significant wall thickening. Normal appendix. Peritoneum: No abnormal intraperitoneal fluid. No free air. Ventral Wall: No significant ventral hernia. Abdominal Nodes: No retroperitoneal or mesenteric adenopathy by size criteria. Vessels: Aorta and inferior vena cava are normal in size. PELVIS: Pelvic Organs: Area of low attenuation within left aspect of the prostate measuring approximately 2 x 1 cm is nonspecific. Bladder: No bladder wall thickening, accounting for underdistention. Pelvic Nodes: No enlarged lymph nodes. Miscellaneous: No inguinal hernias are seen. Bones: No aggressive osseous abnormality. Bilateral L4-5 pars interarticularis defects with minimal anterolisthesis of L4 on L5. IMPRESSION: 1. The appendix is normal in appearance. 2. Area of low attenuation within the left aspect of the prostate measuring approximately 2 x 1 cm. This is nonspecific, correlate for signs of prostatitis. 3. Hepatic steatosis. Dictated by: Bharath Flower M.D. on 02/06/2024 at 11:04 [facility] Narrative Medical decision making narrative: [facility] CC: Abdominal pain Complicating co-morbidities: Prior history nephrolithiasis Medical records reviewed: Differential considered: Appendicitis nephrolithiasis diverticulitis cholelithiasis Exam documented above, pertinent findings include: Mildly tender in right lower quadrant no significant flank pain Lab Test results independently reviewed as above. Pertinent findings: WBC 7.4 hemoglobin 15.5 hematocrit 45 point platelets 243 Sodium 139 potassium 4.0 chloride 104 carbon dioxide 29 BUN 16 creatinine 1.1 Bilirubin 0.6 AST 33 ALT 49 alk-phos 56 Independently reviewed EKG as above Imaging studies independently reviewed: CT does show possible prostatitis no appendicitis Treatments: None Re-evaluations: Discussion: 28-year-old male presenting today with some right lower quadrant pain. CT does not show evidence of nephrolithiasis or appendicitis blood work is overall reassuring CT does have questionable prostatitis. Urinalysis is negative for infection. Low suspiction for STD, symptoms do not correlate. Discharge Plan Departure Patient Disposition: Home Clinical Impression: Abdominal pain Instructions: DI for Acute Prostatitis Activity Restrictions/Additional Instructions: *You have been diagnosed with abdominal pain *What to do: CT suggests possible prostatitis although I am not quite convinced. I will give you antibiotics but I recommend that you hold off for a couple of days. *Continue to take medications as directed Take Tylenol Motrin as needed for pain Bactrim 1 tablet twice a day for 7 days *Follow up with your primary care provider in 2-3 days or call [phone] *Return to ER if you should have increasing pain persistent vomiting or any new, worsening or concerning symptoms Prescriptions: New sulfamethoxazole-trimethoprim [Bactrim DS] 800-160 mg tablet 1 tab PO BID 7 Days Qty: 14 0RF No Action citalopram 20 mg tablet 20 mg PO DAILY Qty: 90 3RF sumatriptan succinate [Imitrex] 25 mg tablet See Rx Instructions PO .COMPLEX Qty: 30 1RF Rx Instructions: take 1 tab at onset of headache; if no relief may repeat 1 tab after at least 2 hrs; max = 4 tabs/24 hr PO ondansetron 4 mg tablet,disintegrating 4 mg PO Q8H PRN (Reason: nausea and vomiting) Qty: 30 2RF lorazepam 1 mg tablet 1 mg PO TID PRN (Reason: panic attack) Qty: 30 0RF diazepam [Valium] 10 mg tablet 10 mg PO .COMPLEX MDD 3 tabs Qty: 7 0RF Rx Instructions: 1 to 2 tabs 1hr prior to spinal procedure. May take an additional tab if steroid flare experienced the night after the procedure. Referrals: Jakub Paez MD [Primary Care Provider] - Stand Alone Forms: Patient Portal/API/Survey
[2024-02-06 10:21] LABS: Add Manual Diff / Slide Review NO; Alanine Aminotransferase 49 IU/L (<50); Albumin 4.6 g/dL (3.5-5.0); Albumin Globulin Ratio 1.6 (1.0-2.8); Alkaline Phosphatase 56 U/L (38-126); Aspartate Aminotransferase 33 IU/L (17-59); Basophils Absolute Auto 100 /uL (0-100); Bilirubin Total 0.6 mg/dL (0.2-1.3); Blood Urea Nitrogen 16 mg/dL (9-20); Calcium 9.4 mg/dL (8.4-10.2); Carbon Dioxide 29 mmol/L (22-32); Chloride 104 mmol/L (98-107); Eosinophils Absolute Auto 100 /uL (0-450); Eosinophils Percent Auto 0.9 % (2-4); Estimated Glomerular Filt Rate > 60 mL/min (>60); Globulin 2.8 g/dL (1.7-4.1); Glucose 90 mg/dL (70-100); HEMOLYSIS < 15 (0-50); Hematocrit 45.1 % (41-53); Hemoglobin 15.5 g/dL (13.5-17.5); Lipase 58 U/L (23-300); Lymphocytes Absolute Auto 1800 /uL (1100-4500); Lymphocytes Percent Auto 24.9 % (25-40); Mean Corpuscular HGB Conc 34.5 % (30-36); Mean Corpuscular Hemoglobin 30.5 PG (26-34); Mean Corpuscular Volume 88.5 fL (80-100); Monocytes Absolute Auto 500 /uL (0-900); Monocytes Percent Auto 7.3 % (3-14); Neutrophils Absolute Auto 4900 /uL (1500-7000); Neutrophils Percent Auto 65.9 % (50-75); Platelet Count 243 X10^3/uL (150-400); Sodium 139 mmol/L (137-145); Total Protein 7.4 g/dL (6.3-8.2); White Blood Cell Count 7.4 X10^3/uL (4.5-11.0)
[2024-02-06] MEDS: KETOROLAC 30 MG/ML VIAL 15 MG IV (10:41)
[2024-02-06 10:44] VITALS: PULSE 87; O2SAT 100
[2024-02-06 10:45] VITALS: BP 139/85; PULSE 83; O2SAT 100
[2024-02-06 11:00] VITALS: BP 136/82; PULSE 87; O2SAT 100
[2024-02-06 11:30] VITALS: BP 135/83; PULSE 92; O2SAT 100
[2024-02-06 11:58] VITALS: TEMP 36.5
== END 2024-02-06 12:00 | disposition home or self-care (01) ==
PROVIDERS: Emergency Provider Emergency Medicine; Family Provider Family Medicine; PCP Family Medicine
DX: R10.31 Right lower quadrant pain (principal); Z87.898 Personal history of other specified conditions
CPT/HCPCS: 36415; 74177; 80053; 81003; 83690; 85025; 96374; 99284; J1885; Q9967

== ENCOUNTER → 2024-02-09 10:56 | Outpatient (CLI) | payer OTHER, SELFPAY ==
[2024-02-09 13:23] LABS: Prostate Specific Antigen 1.17 ng/mL (0.10-4.00)
== END ==
PROVIDERS: Family Provider Family Medicine; PCP Family Medicine; Referring Provider Family Medicine; Visit Provider Family Medicine
DX: N41.9 Inflammatory disease of prostate, unspecified (principal)
CPT/HCPCS: 36415; 84153

== ENCOUNTER → 2024-04-20 09:55 | Outpatient (CLI) | payer OTHER, SELFPAY ==
[2024-04-20 11:11] LABS: Cholesterol 228 mg/dL (140-199); HDL Cholesterol 38 mg/dL (40-60); LDL Cholesterol Calculated 161 mg/dL (<100); Triglycerides 146 mg/dL (35-150)
== END ==
PROVIDERS: Family Provider Family Medicine; PCP Family Medicine; Referring Provider Family Medicine; Visit Provider Family Medicine
DX: K76.0 Fatty (change of) liver, not elsewhere classified (principal)
CPT/HCPCS: 36415; 80061

== ENCOUNTER → 2024-05-24 10:43 | Outpatient (CLI) | payer OTHER, SELFPAY ==
--- NOTE | 2024-05-24 10:43 | DI.MRI.S_ITS ---
PROCEDURE: MR HEAD/BRAIN WO CON INDICATIONS: Dizziness, Migraines, Headaches TECHNIQUE: Noncontrast axial T1 spin echo, axial T2 fast spin echo, sagittal and axial FLAIR, coronal T2 fast spin echo, axial gradient echo, axial diffusion and ADC through the brain. In this patient, thin section T2 SPACE images were obtained through the internal auditory canals. COMPARISON: None. FINDINGS: Image quality: Excellent. CSF Spaces: Basal cisterns are patent. No extra-axial fluid collections. Ventricles are normal in size and shape. Brain: No intracranial masses or hemorrhage. Young/white matter interface is normal. Brainstem appears normal. Diffusion-weighted images demonstrate no acute infarct. No chronic ischemic insults. Normal intravascular flow voids are present. In this patient with this given history, scrutiny is given to cerebellopontine angle cisterns and to the internal auditory canals. To the limits of this standard protocol study, no masses can be seen within these regions. Within the white matter, no abnormal T2 hyperintense lesions can be seen. Skull and face: Calvarium has normal marrow signal. Orbits appear normal. Sinuses: Sinuses and mastoids are clear. IMPRESSION: No imaging explanation is found for this patient's presenting symptoms. To the limits of this noncontrast study, no findings of intracranial masses or mass effect can be seen. No abnormal T2 weighted hyperintense lesions can be seen within the white matter. Dictated by: Alex Meraz M.D. on 05/24/2024 at 13:16 Approved by: Alex Meraz M.D. on 05/24/2024 at 13:18
== END ==
PROVIDERS: Family Provider Family Medicine; PCP Family Medicine; Referring Provider Family Medicine; Visit Provider Family Medicine
DX: G43.009 Migraine without aura, not intractable, without status migrainosus (principal); G44.219 Episodic tension-type headache, not intractable; H93.19 Tinnitus, unspecified ear; R42 Dizziness and giddiness
CPT/HCPCS: 70551

== ENCOUNTER → 2024-07-03 13:57 | Outpatient (CLI) | payer OTHER, SELFPAY ==
[2024-07-03 14:54] LABS: Add Manual Diff / Slide Review NO; Basophils Absolute Auto 100 /uL (0-100); Basophils Percent Auto 1.2 % (0-2); Eosinophils Absolute Auto 200 /uL (0-450); Eosinophils Percent Auto 3.2 % (2-4); Hematocrit 43.8 % (41-53); Hemoglobin 14.9 g/dL (13.5-17.5); Lymphocytes Absolute Auto 2000 /uL (1100-4500); Lymphocytes Percent Auto 30.7 % (25-40); Mean Corpuscular HGB Conc 34.1 % (30-36); Mean Corpuscular Hemoglobin 30.6 PG (26-34); Mean Corpuscular Volume 89.8 fL (80-100); Monocytes Absolute Auto 500 /uL (0-900); Monocytes Percent Auto 8.1 % (3-14); Neutrophils Absolute Auto 3800 /uL (1500-7000); Neutrophils Percent Auto 56.8 % (50-75); Platelet Count 213 X10^3/uL (150-400); Red Blood Cell Count 4.88 X10^6/uL (4.5-5.9); Red Cell Distribution Width 12.9 % (11.6-14.8); White Blood Cell Count 6.7 X10^3/uL (4.5-11.0)
[2024-07-03 15:29] LABS: Alanine Aminotransferase 35 IU/L (<50); Albumin 4.7 g/dL (3.5-5.0); Alkaline Phosphatase 69 U/L (38-126); Aspartate Aminotransferase 31 IU/L (17-59); BUN Creatinine Ratio 16.3 (6-22); Bilirubin Total 0.5 mg/dL (0.2-1.3); Blood Urea Nitrogen 17 mg/dL (9-20); Calcium 9.6 mg/dL (8.4-10.2); Carbon Dioxide 29 mmol/L (22-32); Chloride 100 mmol/L (98-107); Estimated Glomerular Filt Rate > 60 mL/min (>60); Globulin 2.4 g/dL (1.7-4.1); Glucose 113 mg/dL (70-99); HEMOLYSIS < 15 (0-50); Potassium 4.3 mmol/L (3.4-5.1); Sodium 136 mmol/L (137-145); Total Protein 7.1 g/dL (6.3-8.2)
[2024-07-03 16:03] LABS: TSH w/ Reflex to FT4 1.97 uIU/mL (0.47-4.68)
== END ==
PROVIDERS: Family Provider Family Medicine; PCP Family Medicine; Referring Provider Family Medicine; Visit Provider Family Medicine
DX: R00.2 Palpitations (principal); F41.9 Anxiety disorder, unspecified; E78.5 Hyperlipidemia, unspecified
CPT/HCPCS: 36415; 80053; 84443; 85025

== ENCOUNTER → 2024-07-04 11:53 | Outpatient (CLI) | payer OTHER, SELFPAY ==
--- NOTE | 2024-07-04 11:54 | DI.US.S_ITS ---
PROCEDURE: US SCROTUM INDICATIONS: LEFT GROIN/TESTICULAR PAIN TECHNIQUE: Real-time scanning was performed of the scrotum and testicles, with image documentation. Color and pulse Doppler interrogation was performed of both testicles. COMPARISON: [facility], CT, CT ABDOMEN PELVIS W CON, 02/06/2024, 10:19. [facility], US, US SCROTUM, 09/30/2021, 7:27. FINDINGS: Right: Testicle is normal in size at 4.4 x 2.8 x 2.2 cm, and homogenous in echotexture. Epididymis is normal in overall size and morphology. No hydrocele or varicoceles. Overlying scrotal skin is normal in thickness. Left: Testicle is normal in size at 4.2 x 2.9 x 2.1 cm, and homogeneous in echotexture. Epididymis is normal in overall size and morphology. No hydrocele or varicoceles. Overlying scrotal skin is normal in thickness. Doppler: Color and pulse Doppler demonstrate normal and symmetric arterial flow in both testicles. Other: Evaluation of the bilateral inguinal regions does not demonstrate a hernia. IMPRESSION: No acute sonographic abnormality of the testes. Dictated by: Ze Thomas M.D. on 07/05/2024 at 10:16 Approved by: Ze Thomas M.D. on 07/05/2024 at 10:19
== END ==
PROVIDERS: Family Provider Family Medicine; PCP Family Medicine; Referring Provider Family Medicine; Visit Provider Family Medicine
DX: R10.32 Left lower quadrant pain (principal)
CPT/HCPCS: 76870; 93975

== ENCOUNTER → 2024-07-09 13:38 | Outpatient (CLI) | payer OTHER, SELFPAY | LOC: CAR 13:39 | PROVIDERS: Family Provider Family Medicine; PCP Family Medicine; Referring Provider Family Medicine; Visit Provider Family Medicine | DX: R00.2 Palpitations (principal) | CPT/HCPCS: 93242 ==

== ENCOUNTER → 2024-10-19 10:51 | Outpatient (CLI) | payer OTHER, SELFPAY ==
--- NOTE | 2024-10-19 10:52 | DI.RAD.S_ITS ---
PROCEDURE: XR CERVICAL SPINE 2V OR 3V INDICATIONS: neck pain TECHNIQUE: 3 view(s) of the cervical spine were acquired. COMPARISON: None. FINDINGS: Bones: Slight loss of normal cervical lordosis. No fractures or dislocations to the T1 level. Minimal anterior osteophytosis at the C5-C6 level. The lateral masses of C1 appear intact on the odontoid view. No suspicious bony lesions. Soft tissues: No prevertebral soft tissue swelling. IMPRESSION: Mild degenerative change without evidence of displaced fracture or traumatic subluxation. Dictated by: Ze Young M.D. on 10/22/2024 at 6:10 Approved by: Ze Young M.D. on 10/22/2024 at 6:11
== END ==
PROVIDERS: Family Provider Family Medicine; PCP Family Medicine; Referring Provider Family Medicine; Visit Provider Family Medicine
DX: M47.812 Spondylosis without myelopathy or radiculopathy, cervical region (principal); M54.2 Cervicalgia; R20.0 Anesthesia of skin; R20.2 Paresthesia of skin
CPT/HCPCS: 72040

== ENCOUNTER → 2025-01-11 13:23 | Outpatient (CLI) | payer OTHER, SELFPAY ==
--- NOTE | 2025-01-11 13:24 | DI.US.S_ITS ---
PROCEDURE: US PELVIC LIMITED INDICATIONS: deep lump on anterior shaft of penis TECHNIQUE: Real-time transabdominal scanning was performed of the pelvic organs, with image documentation. COMPARISON: None. FINDINGS: Targeted sonographic evaluation of the penis was performed at the patient directed area of palpable concern localizing to the anterior, left side of the mid corpus cavernosum. There is a focal 0.2 x 0.1 cm echogenic focus noted near the central/medial aspect of the mid left corpus cavernosum. No associated vascularity. Remainder of the bilateral corpus cavernosum appear normal. The corpus spongiosum appears unremarkable. No abnormal vascularity. No abnormal vessels. No suspicious mass lesions. IMPRESSION: Nonspecific 0.2 x 0.1 cm echogenic focus near the central/medial aspect of the mid left corpus callosum which correlates with palpable area of patient concern. This may represent a small calcification secondary to remote trauma, infection, or inflammation. Additionally, this may represent early fibrous plaque formation of Peyronie's disease. No suspicious mass lesion or abnormal vascularity. Recommend continued clinical surveillance with consideration for urology consultation. We strive to produce accurate, complete, and clear reports of imaging services. To assist us in improving patient care, this report was composed using standard report templates and voice recognition software. Therefore, it may contain abnormal punctuation, insertions and/or omissions. Occasional wrong-word or sound-alike substitutions may occur. Though we review the report and make efforts to correct it, we do recommend that the report be read carefully in proper context to recognize any text inaccuracies. Dictated by: Yony Quiros M.D. on 01/12/2025 at 15:58 Approved by: Yony Quiros M.D. on 01/12/2025 at 16:03
== END ==
LOC: US 13:23
PROVIDERS: Family Provider Family Medicine; PCP Family Medicine; Referring Provider Family Medicine; Visit Provider Chiropractor
DX: N48.89 Other specified disorders of penis (principal)
CPT/HCPCS: 76857

== ENCOUNTER → 2025-01-19 16:59 | Outpatient (CLI) | payer OTHER, SELFPAY | PROVIDERS: Family Provider Family Medicine; PCP Family Medicine; Visit Provider Registered Nurse | DX: R30.0 Dysuria (principal) | CPT/HCPCS: 87086 ==

== ENCOUNTER 2025-01-22 10:17 | Outpatient (CLI) | payer OTHER, SELFPAY ==
[2025-01-22] VITALS (10 sets, daily range): BP systolic 103–123; BP diastolic 51–75; PULSE 63–81; RESP 14–20; TEMP 36.8; O2SAT 94–100
[2025-01-22] MEDS: MIDAZOLAM 2 MG/2 ML VIAL IV ×2 (11:25→11:31)
[2025-01-22] MEDS: LIDOCAINE 1% 20 ML 5 ML INJ (11:29)
--- NOTE | 2025-01-22 11:43 | PM.PROC.IR.1 ---
Date/Time/Diagnoses Date of procedure: 01/22/25 Time of procedure: 11:44 Pre-procedure diagnosis: 1. FACET ARTHROPATHY Post-procedure diagnosis: same Procedure Notes Procedure: 1. BILATERAL- L4, L5 and S1 DIAGNOSTIC MB BLOCKS with LA Anesthetic Indications: Kobe is referred by Dr. Paez for treatment of Bilateral Axial LBP. Physician: Quoc Wolfe Total Fluoroscopy time (seconds): 11 Total sedation minutes: 15 Complications: none Procedure in detail & Post-procedure care: DESCRIPTION OF PROCEDURE Fluoroscopically guided, contrast-controlled bilateral L4, L5 and S1 medial branch blocks with 0.5cc of 0.5% Marcaine. Following review of allergy and review of potential side effects and complications, including, but not necessarily limited to, infection, allergic reaction, local tissue breakdown, nerve injury, paralysis, stroke and possible , the patient indicated that the patient understood and agreed to proceed. An informed consent document was signed by the patient, witnessed by a nurse, and placed in the patient's chart. After review of previous anaesthesic history and IV conscious sedation the patient was deemed safe to proceed with today's procedure with IV conscious sedation as ASA class II designation. Safety time-out was performed to confirm patient ID, procedure to be performed and site of procedure. IV sedation was accomplished with a combination of 2mg of Versed was administered by the RN after DO order, titrated to patient comfort during the course of the procedure while the patient remained responsive to all verbal commands In the prone position, following sterile prep and drape of the lumbar region, the right L4, L5 and S1 anatomical location of the medial branch of the dorsal ramus was identified fluoroscopically. Subsequently an anesthetic skin wheal using 1% lidocaine solution was initiated at each of the anatomical spots. Subsequently then a 22-gauge 3.5-inch spinal needle was atraumatically introduced and advanced under fluoroscopic guidance at each of the corresponding sites at the right L4, L5 and S1 MB. After negative aspiration, 0.2cc of Isovue 200 was injected, confirming placement without vascular or intrathecal uptake. Subsequently then 0.5cc of 0.5% Marcaine solution was injected at each of the corresponding sites at the right L4, L5 and S1 medial branch locations. The identical procedure was replicated on the left. The patient tolerated the procedure well without signs or symptoms of complications prior to transfer to the recovery area continued monitoring without incident. Post-procedure, the patient was monitored initiating provocative activities to measure the amount of relief from block of the facetogenic pain. The patient reported a VAS of 7 prior to the procedure and a post-procedure VAS of 1. It has been a pleasure to assist in the diagnostic and therapeutic care of your patient. POST OP INSTRUCTIONS The patient was provided with a Pain Log to complete over the next several hours and subsequent days prior to the patient's follow up with the ordering physician. If the patient has dog behaviorist relief to the solution applied, then they may be a candidate for medial branch rhizotomy. The patient is aware, was provided, once again, with a Pain Log and will follow up with the referring physician for review and clinical correlation
== END 2025-01-22 12:05 | disposition home or self-care (01) ==
LOC: RAD 10:17
PROVIDERS: Family Provider Family Medicine; PCP Family Medicine; Referring Provider Family Medicine; Visit Provider Physical Medicine & Rehabilitation
DX: M47.816 Spondylosis without myelopathy or radiculopathy, lumbar region (principal); M47.817 Spondylosis without myelopathy or radiculopathy, lumbosacral region
CPT/HCPCS: 64493; 64494; 99152; J2250